=== PATIENT | male | born 1940 | race Caucasian/White ===

== ENCOUNTER 2020-05-06 13:30 | Outpatient (CLI) | payer MEDICARE, SELFPAY ==
--- NOTE | ~2020-05-06 | CT_ITS ---
EXAMINATION:CT lung screening DATE: 05/06/2020 13:54 INDICATION: Personal history of nicotine dependence. Smoker who quit 8 years ago with 30 pack year hi story. TECHNIQUE: Computed tomography (CT) of the chest was performed without intravenous contrast. Automate d exposure control and iterative reconstruction technique were employed. The dose-length product (DLP ) was 459.80 mGy-cm. COMPARISON: Chest CT 05/08/2018 FINDINGS: There is moderate emphysema. There is mild atelectasis bilaterally. There is an 11 mm nodul e in lingula in an area of atelectasis, increased from 8 mm on 05/08/2018. Calcified left lung nodules and calcified left hilar lymph nodes are consistent with old granulomatous disease. No pleural effus ion. The heart size is normal. There are coronary artery calcifications. No pericardial effusion. The re is a moderate-sized sliding hiatal hernia. There is a ring-shaped implant at the gastroesophageal junction. 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 There are ol d healed bilateral rib fractures. There is mild chronic height loss of multiple thoracic vertebral blaine dies. IMPRESSION: 1. Lung-RADS category 4B: Very suspicious. PET/CT is recommended. Reviewed, dictated and finalized at location B.
[2020-05-06 14:30] VITALS: PULSE 69; O2SAT 97
[2020-05-06 14:33] VITALS: PULSE 122; O2SAT 86
[2020-05-06 14:35] VITALS: O2SAT 87
[2020-05-06 14:37] VITALS: O2SAT 88
[2020-05-06 14:40] VITALS: PULSE 120; O2SAT 89
--- NOTE | 2020-05-06 15:06 | HOMEO2EVAL ---
Home Oxygen Evaluation RC: Home Oxygen (O2) Evaluation Start: 05/06/20 15:01 Freq: Status: Active Protocol: RPE Activity Type Activity Date Activity User E-Sign Co-Sign Detail Recorded Client Recorded Date Recorded By Document 05/06/20 14:30 SHADY [id number] 05/06/20 15:04 SHADY Document 05/06/20 14:33 SHADY [id number] 05/06/20 15:04 SHAYD Document 05/06/20 14:35 SHADY [id number] 05/06/20 15:04 SHADY Document 05/06/20 14:37 SHADY [id number] 05/06/20 15:04 SHADY Document 05/06/20 14:40 SHADY [id number] 05/06/20 15:06 SHADY 05/06/20 05/06/20 05/06/20 14:30 14:33 14:35 Home O2 Evaluation Test Phase Resting Exercise Exercise Oxygen Delivery Room Air Room Air Nasal Cannula Oxygen Flow Rate (L/min) 1 Pulse Oximetry (90-100 %) 97 86 L 87 L Pulse Rate (60-100 beats/min) 69 122 H Activity Tolerance Rating of Perceived Dyspnea (PD) Ambulation Distance (feet) Home Oxygen Evaluation Comments Treatment Charges O2 Evaluation 05/06/20 05/06/20 14:37 14:40 Home O2 Evaluation Test Phase Exercise Exercise Oxygen Delivery Nasal Cannula Nasal Cannula Oxygen Flow Rate (L/min) 2 3 Pulse Oximetry (90-100 %) 88 L 89 L Pulse Rate (60-100 beats/min) 120 H Activity Tolerance Poor Rating of Perceived Dyspnea (PD) +3 Moderate Difficulty, But Can Continue Ambulation Distance (feet) 75 Home Oxygen Evaluation Comments PT REQUIRES 3L WITH ACTIVITY/ EXERTION Treatment Charges
== END 2020-05-06 13:31 | disposition home or self-care (01) ==
PROVIDERS: PCP Internal Medicine; Visit Provider Nurse Practitioner Family
DX: Z12.2 Encounter for screening for malignant neoplasm of respiratory organs (principal); Z87.891 Personal history of nicotine dependence; R91.8 Other nonspecific abnormal finding of lung field
CPT/HCPCS: 94618; G0297

== ENCOUNTER 2020-05-13 07:36 | Outpatient (CLI) | payer MEDICARE, SELFPAY ==
--- NOTE | ~2020-05-13 | PE_ITS ---
EXAMINATION: PET skull to mid thigh DATE: 05/13/2020 09:45 INDICATION: Lung nodule TECHNIQUE: Blood glucose level was 77 mg/dL. 8.7 mCi of 18-fluorodeoxyglucose (18-FDG) was administer ed i.v. Low dose computed tomography (CT) images were acquired from the base of the brain to the prox imal thighs for attenuation correction and anatomic localization. Positron emission tomography (PET) images were acquired in the same distribution beginning 56 minutes after injection. Images including fused PET/CT images were reconstructed in axial, coronal, and sagittal planes. Automated exposure con trol technique was employed. The dose-length product was 1103 mGy-cm. COMPARISON: 05/06/2020, 03/16/2019 and 05/08/2018 FINDINGS: Head/neck: There is symmetric increased activity in the oral cavity, palatine tonsils, parotid glands, submandi bular glands, laryngeal muscles and ocular muscles without CT correlate, likely physiologic. Nonfocal increased activity along the bilateral scalene muscles without radiologic correlate which is likely physiologic. No pathologically enlarged cervical lymphadenopathy or suspicious foci of increased FDG uptake in the visualized head or neck. Chest: Emphysema. Respiratory motion throughout the lungs. No appreciable FDG uptake in the region of the pr evious noted is a calcified nodule along a band of discoid atelectasis/scarring in the lingula. There are a few additional small calcified nodules in both lungs along with calcified left hilar lymph nod es consistent with old granulomatous disease. No pneumonia, pulmonary edema or pleural effusion. Hear t size is normal. No pericardial effusion. Coronary artery disease with change of prior median sterno rachel and coronary artery bypass grafting as well as likely stenting along portions of the left anteri or descending and right coronary arteries. Dense mitral annular calcification. Ascending thoracic aor tic aneurysm measuring up to 4.6 cm in maximal diameter. Moderate-sized sliding-type hiatal hernia wi th ring shaped implant both level of the diaphragm in the region of the gastroesophageal junction. No pathologically enlarged thoracic lymphadenopathy or abnormal FDG avid lesions. Abdomen/pelvis/proximal thighs: Physiologic renal accumulation and excretion of FDG activity in the kidneys, bladder and along portio ns of ureters. Normal degree and heterogenous pattern of increased uptake throughout the liver withou t radiologic correlate or dominant FDG avid lesion. The gallbladder, pancreas, spleen and bilateral a drenal glands are normal. Mild to moderate uptake scattered throughout the bowels without radiologic correlate, also likely physiologic. There is mild colonic diverticulosis with a sigmoid predominance. There is no adjacent inflammatory change to suggest diverticulitis. There is extensive calcified at herosclerosis of the aorta and many of the other arteries. The abdominal aorta is tortuous with a jason r of fusiform infrarenal abdominal aortic aneurysms measuring 3.7 cm in maximal diameter with interve osbaldo tapering to 1.8 cm. 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 No other abnormal foci of increased FDG uptake or pathologically en larged lymphadenopathy in the abdomen, pelvis or proximal thighs. Musculoskeletal: Old bilateral rib fractures. Ptotic mild compression fractures at T7 and L1. Moderate lower cervical and mild thoracic and lumbar spondylosis. Chronic osteonecrosis at the bilateral femoral heads. No becker spicious lytic, blastic or FDG avid bone lesions. IMPRESSION: 1. No evident FDG uptake associated with a partially calcified nodule along a band of atelectasis/sca rring in the lingula. While reassuring a slowly growing malignancy with low metabolic activity cannot be absolutely excluded. Consider continued follow-up with six-month low-dose noncontrast chest
[2020-05-13 08:16] LABS: Glucose Point of Care 97 (65-105)
== END 2020-05-13 07:37 | disposition home or self-care (01) ==
PROVIDERS: PCP Internal Medicine; Visit Provider Nurse Practitioner Family
DX: R91.8 Other nonspecific abnormal finding of lung field (principal); J43.9 Emphysema, unspecified; K57.30 Diverticulosis of large intestine without perforation or abscess without bleeding; I71.4 Abdominal aortic aneurysm, without rupture; K44.9 Diaphragmatic hernia without obstruction or gangrene
CPT/HCPCS: 78815; A9552

== ENCOUNTER 2020-07-23 12:21 | Emergency (ER) | payer MEDICARE, SELFPAY ==
--- NOTE | ~2020-07-23 | XR_ITS ---
EXAMINATION: XR knee LT 3V DATE: 07/23/2020 14:56 INDICATION: Left knee pain. TECHNIQUE: 3 views of left knee were obtained. COMPARISON: None. FINDINGS: Bone alignment is normal. No fracture. There is mild osteoarthritis of medial and patellofe moral compartments. No knee joint effusion. IMPRESSION: 1. Mild left knee osteoarthritis. Reviewed, dictated and finalized at location B. V BELT MOLD ASSEMBLER AND CURER
--- NOTE | ~2020-07-23 | XR_ITS ---
EXAMINATION: XR knee RT 3V DATE: 07/23/2020 14:56 INDICATION: Right knee pain. Fall. TECHNIQUE: 3 views of right knee were obtained. COMPARISON: None. FINDINGS: Bone alignment is normal. No fracture. There is mild osteoarthritis of patellofemoral kayden rtment. There are subcutaneous dystrophic calcifications anterior to the knee. No knee joint effusion . IMPRESSION: 1. Mild right knee osteoarthritis. Reviewed, dictated and finalized at location B. E COTTON CLEANER
--- NOTE | ~2020-07-23 | XR_ITS ---
EXAMINATION: XR hand RT min 3V DATE: 07/23/2020 14:56 INDICATION: Right hand injury TECHNIQUE: Posteroanterior, oblique and lateral views of the right hand were obtained. COMPARISON: None. FINDINGS: Diffuse body osteopenia. Bone alignment is normal. No fracture. Polyarticular osteoarthritis, moderat e at the first interphalangeal joint and mild at the triscaphe, first carpometacarpal and majority of the remaining metacarpophalangeal and interphalangeal joints. IMPRESSION: 1. Polyarticular osteoarthritis. No acute fracture. Reviewed, dictated and finalized at location A. S OFFICER
--- NOTE | ~2020-07-23 | CT_ITS ---
EXAMINATION: CT brain wo con, CT cervical spine wo con EXAM DATE: 07/23/2020 14:23 INDICATION: Syncope, head injury . TECHNIQUE: Spiral CT of the head was performed without contrast. Axial, coronal and sagittal images were reviewed. Spiral CT of the cervical spine was performed without contrast. Axial images were rev iewed. Coronal and sagittal reformatted images were also reviewed. The dose-length product (DLP) fo r this examination was 605.33 (accession [id number]), 527.71 (accession [id number]) mGy-cm. The exposure was tailored according to patient size, and iterative reconstruction (ASIR) was used as additional dose reduction technique. There is no prior study for comparison. FINDINGS: HEAD CT: There is no acute intraparenchymal hemorrhage. No evidence of intraparenchymal brain mass l esion. No evidence of acute infarction. There is moderate periventricular and subcortical hypodensit y, nonspecific but probably related to small vessel ischemic disease. There is moderate prominence of the sulci and ventricles related to cerebral atrophy. There is severe intracranial carotid arter iosclerosis. There is no mass effect or midline shift. There is no obstructive hydrocephalus suspec romi. There are no extra-axial collections. There are no acute calvarial fractures. Patient has had bilateral ocular lens surgery. Symmetrically dilated superior ophthalmic veins. Moderate-sized right frontal scalp contusion, hematoma. Laceration. The visualized sinuses and mastoid air cells are well aerated. CERVICAL CT: Sternotomy wires. There is no evidence of acute cervical fracture. The odontoid process is intact. Pre-dens space is normal. Prevertebral soft tissue is normal. There are no soft tissue abnormalities identified. There is no disc space widening or traumatic vertebral body subluxation s uspected. Vertebral body and disc heights are well-maintained. Moderate cervical disc disease, adv anced left C3--4. Otherwise overall moderate cervical arthropathy. IMPRESSION: 1. No acute intracranial findings or cervical fracture. 2. Right frontal scalp injury. 3. Moderate cervical spondylosis. Reviewed, dictated and finalized at location A. HER VOCAL IMPRESSION: 1. No acute intracranial findings or cervical fracture. 2. Right frontal scalp injury. 3. Moderate cervical spondylosis.
--- NOTE | ~2020-07-23 | XR_ITS ---
EXAMINATION: XR chest 2V DATE: 07/23/2020 14:56 INDICATION: Syncope TECHNIQUE: frontal and lateral views of the chest were obtained. COMPARISON: Chest radiograph dated 03/16/[address] dated 05/06/2020 FINDINGS: Increased lucency with architectural distortion in the upper lung zones and vascular crowding in the lower lung zones consistent with emphysema better appreciated on prior CT. Chronic curvilinear atelec tasis/scarring at the medial right lower lung zone. Persistent triangular opacity projecting medially from the left costophrenic angle corresponding to a prominent paracardial fat pad. No pulmonary ashok a, pleural effusion or pneumothorax. Heart size is normal. Median sternotomy wires, ostial markers an d mediastinal surgical clips consistent with prior coronary artery bypass grafting. There is also bee n coronary artery stenting. Dense mitral annular calcification. Moderate-sized hiatal hernia. A marke r is seen corresponding to the ringlike implant at the gastroesophageal junction. Atherosclerotic aor ta. Moderate thoracic spondylosis with a few chronic mild compression fractures. IMPRESSION: 1. Emphysema with chronic atelectasis/scarring at the right lower lung zone. 2. Moderate-sized hiatal hernia. Reviewed, dictated and finalized at location A. ROLLER
--- NOTE | ~2020-07-23 | XR_ITS ---
EXAMINATION: XR hip RT min 3V w AP pelvis DATE: 07/23/2020 14:56 INDICATION: Right hip injury. TECHNIQUE: An anteroposterior view of the pelvis and 3 views of right hip were obtained. COMPARISON: CT abdomen and pelvis 03/16/2019 FINDINGS: Bone alignment is normal. No fracture. There is moderate osteoarthritis of the hips. There is mild lumbar spondylosis. IMPRESSION: 1. Moderate osteoarthritis of the hips. 2. The osteonecrosis at the anterosuperior aspects of the femoral heads bilaterally seen on the prior CT is not well visualized. Reviewed, dictated and finalized at location B. ECHNICIAN IMPRESSION: 1. Moderate osteoarthritis of the hips. 2. The osteonecrosis at the anterosuperior aspects of the femoral heads bilater ally seen on the prior CT is not well visualized.
[2020-07-23 12:33] VITALS: BP 125/66; PULSE 54; RESP 16; TEMP 36.8; O2SAT 94
--- NOTE | 2020-07-23 12:49 | ECG_ITS ---
Measurements Intervals [place] Rate: 52 P: 61 AK: 233 QRS: -27 QRSD: 157 T: 25 QT: 490 QTc: 460 Interpretive Statements SINUS BRADYCARDIA WITH SINUS ARRHYTHMIA WITH FIRST DEGREE AV BLOCK LEFT BUNDLE BRANCH BLOCK BASELINE ARTIFACT- I, II, III, AVR, AVL, AVF ABNORMAL ECG Electronically Signed On 07-23-2020 17:08:11 HEATING AND VENTILATION ENGINEER by aRza Modi D.O.
[2020-07-23 13:14] VITALS: BP 141/85; PULSE 52; RESP 22; O2SAT 92
[2020-07-23 13:24] LABS: Hematocrit 31.7 % (42.0-52.0); Hemoglobin 9.4 g/dL (14.0-18.0); Mean Corpuscular HGB Conc 29.7 g/dl (32-36); Mean Corpuscular Hemoglobin 23.6 pg (26-34); Mean Corpuscular Volume 79.6 fl (80-100); Mean Platelet Volume 8.9 fl (7.4-10.4); Platelet Count Result 302 k/mm3 (150-375); Red Blood Count 3.98 M/mm3 (4.6-6.20); Red Cell Distribution Width 15.3 % (11.5-14.5)
--- NOTE | 2020-07-23 13:29 | ED.FALL ---
HPI - Fall General Chief Complaint: Fall Stated Complaint: FALL Time Seen by Provider: 07/23/20 12:34 History of Present Illness HPI Narrative: Patient is a 79-year-old gentleman who presents emergency department with chief complaint of head injury. Patient reports that he got up and then the next thing he knows he was laying on the ground. Patient states that he had no preceding symptoms reports that he did lose consciousness had no loss of bowel or bladder function. The patient denies history of syncope in the past does report that he has a significant cardiac history of which she has had bypass and has had stents. The patient states currently he does complains of a headache and has a skin tear on his right hand. Patient reports that he is on antiplatelet therapy with Plavix and aspirin. Related Data Home Medications Medication Instructions Recorded Confirmed carvedilol 6.25 mg tablet 6.25 mg PO Q12H 07/16/19 06/03/20 fesoterodine 4 mg tablet,extended 4 mg PO DAILY 07/16/19 06/03/20 release 24 hr finasteride 5 mg tablet 5 mg PO DAILY 07/16/19 06/03/20 furosemide 20 mg tablet 20 mg PO QAM 07/16/19 06/03/20 lisinopril 10 mg tablet 5 mg PO DAILY 07/16/19 06/03/20 pravastatin 20 mg tablet 20 mg PO DAILY 07/16/19 06/03/20 spironolactone 25 mg tablet 25 mg PO DAILY 07/16/19 06/03/20 tamsulosin 0.4 mg capsule 0.4 mg PO DAILY 07/16/19 06/03/20 pantoprazole 40 mg tablet,delayed 40 mg PO BID tablet 01/08/20 06/03/20 release clopidogrel 75 mg tablet 75 mg PO DAILY 06/03/20 06/03/20 evolocumab 140 mg/mL subcutaneous 140 mg SUB-Q .COMPLEX 06/03/20 06/03/20 pen injector aspirin [Adult Low Dose Aspirin] 81 mg PO DAILY 07/23/20 clopidogrel [Plavix] 75 mg PO DAILY 07/23/20 07/23/20 ezetimibe [Zetia] 10 mg PO DAILY 07/23/20 07/23/20 Allergies Allergy/AdvReac Type Severity Reaction Status Date / Time Penicillins Allergy Mild HIVES Verified 07/23/20 12:33 levofloxacin Allergy Unknown Hives / Verified 07/23/20 12:33 Red Face metronidazole Allergy Unknown unknown Verified 07/23/20 12:33 sulfamethoxazole Allergy Unknown unknown Verified 07/23/20 12:33 tramadol Allergy Unknown Itching Verified 07/23/20 12:33 trimethoprim Allergy Unknown unknown Verified 07/23/20 12:33 cyclobenzaprine AdvReac Intermediate REPORTS Verified 07/23/20 12:33 INCREASED URINATION acetaminophen AdvReac Unknown gets Verified 07/23/20 12:33 goofy oxycodone AdvReac Unknown gets Verified 07/23/20 12:33 goofy Review of Systems Review of Systems: Narrative: CONSTITUTIONAL: Denies fever, chills, or sweats. EYES: Denies visual changes, redness, or discharge. ENT: Denies rhinorrhea, congestion, sore throat, or otalgia. CARDIOVASCULAR: Denies chest pain, palpitations, or edema. RESPIRATORY: Denies cough or dyspnea. GASTROINTESTINAL: Denies abdominal pain, nausea, vomiting, or diarrhea. GENITOURINARY: Denies dysuria or hematuria. SKIN: Denies rash or itching. MUSCULOSKELETAL: Denies back pain, joint pain, or myalgia. NEUROLOGIC: Denies headache, numbness, or weakness. PSYCHIATRIC: Denies anxiety or depression. 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
[2020-07-23 13:33] LABS: Hypochromasia 2+ (NORMAL); Lymphocytes Absolute Manual 0.91 K/mm3 (1.1-4.5); Monocytes Absolute Manual 0.28 K/mm3 (0.1-0.90); Monocytes Percent Manual 4 % (3-9); Neutrophils Percent Manual 83 % (46-73); Platelet Estimate Adequate (Adequate); Stomatocytes 1+ (NORMAL); Tear Drop Cells 1+ (NORMAL); Total Cells Counted 100
[2020-07-23 13:35] LABS: Lactic Acid Reflex 1.2 mmol/L (0.7-2.1)
[2020-07-23 13:36] LABS: Alanine Aminotransferase 20 U/L (4-50); Albumin Level 4.3 g/dL (3.5-5.1); Alkaline Phosphatase 55 U/L (38-126); Anion Gap 4 mmol/L (8-16); Aspartate Amino Transferase 25 U/L (17-59); Bilirubin,Total 0.4 mg/dL (0.2-1.3); Blood Urea Nitrogen 16 mg/dL (9-20); Carbon Dioxide 34 mmol/L (22-30); Chloride 98 mmol/L (98-107); Estimated CRCL calculation 66 ml/min; Estimated Glomerular Filt Rate > 60; Glucose 113 mg/dL (75-110); INR 0.9; Potassium 4.2 mmol/L (3.4-5.0); Prothrombin Time 12.8 Seconds (11.1-14.7); Sodium 136 mmol/L (137-145)
[2020-07-23 13:37] LABS: Partial Thromboplastin Time 26.1 SECONDS (22.3-36.8)
[2020-07-23 13:40] LABS: Alveolar/Arterial O2 Gradient 28.6 mmHg; Base Excess ABG 2.5 mEq/l (+/-2.0); Carboxyhemoglobin 0.7 % THb (0-2.0); Fractional Inspired Oxygen 21 %; HCO3 ABG 28.6 mEq/l (22.0-26.0); Methemoglobin ABG 0.1 %THb (0-1.5); Oxygen Saturation ABG 89.4 % (95.0-100.0); Oxyhemoglobin 88.4 % THb (90.0-100.0); PCO2 ABG 51.6 mmHg (35.0-45.0); PO2 ABG 59.3 mmHg (80.0-100.0); PO2 FiO2 Ratio Arterial Blood 2.82 %; Reduced Hemoglobin 10.8 %THb (0-5.0); Total Hemoglobin 10.4 g/dL (12.0-18.0); pH ABG 7.361 (7.350-7.450)
[2020-07-23 13:41] LABS: Device ROOM AIR; Modified Allen's Test Pass; Site Drawn LEFT RADIAL
[2020-07-23 13:48] LABS: Troponin I < 0.012 ng/mL (0.000-0.034)
[2020-07-23] MEDS: TETANUS,DIPHTHERIA,AC PERTUSSIS ADULT (0.5 ML) BOOSTRIX IM (13:54)
[2020-07-23 14:28] LABS: Add Urine Microscopic? YES; Appearance Urine Clear (Clear); Bacteria Urine Trace /hpf; Bilirubin Urine Negative (Negative); Blood Urine Negative (Negative); Color Urine Yellow (Yellow); Glucose Urine UA Negative (Negative); Hyaline Casts Urine 30-49 /lpf; Ketones Urine Negative (Negative); Leukocyte Esterase Ur Negative LEU/UL (Negative); Mucus Urine Few /lpf; Nitrate Urine Negative (Negative); Protein Urine Negative (Negative); RBC Urine 0-2 /hpf (0-2); Specific Grav Ur 1.013 (1.001-1.035); Squamous Epithelial Cell Urine Rare /hpf (Few); Urobilinogen Urine Negative mg/dL (<2.0); WBC Urine 0-3 /hpf
[2020-07-23 15:52] VITALS: BP 128/64; PULSE 58; RESP 21; O2SAT 94
--- NOTE | 2020-07-23 16:05 | PC.NURSE ---
Road test done with patient. He was on 3L of oxygen, which is what he is on when he is at home with exertion. Pt )2 during this was 90-98%. It mainly ranged from 93-95%. It dropped to 90% when he got back to the room but then quickly went back up. He is 98% on 3L while resting.
[2020-07-23 17:33] VITALS: BP 131/66; PULSE 58; RESP 24; O2SAT 93
== END 2020-07-23 17:35 | disposition home or self-care (01) ==
PROVIDERS: Emergency Provider Emergency Medicine; PCP Internal Medicine
DX: R55 Syncope and collapse (principal); S00.01XA Abrasion of scalp, initial encounter; S61.411A Laceration without foreign body of right hand, initial encounter; Z23 Encounter for immunization; Z79.82 Long term (current) use of aspirin; Z79.02 Long term (current) use of antithrombotics/antiplatelets; Z87.891 Personal history of nicotine dependence; I25.2 Old myocardial infarction; Z95.5 Presence of coronary angioplasty implant and graft; W18.39XA Other fall on same level, initial encounter
CPT/HCPCS: 36415; 36600; 70450; 71046; 72125; 73130; 73502; 73562; 80053; 81001; 82375; 82805; 83050; 83605; 84484; 85025; 85610; 85730; 90471; 90715; 93005; 99284

== ENCOUNTER 2020-11-19 08:59 | Outpatient (CLI) | payer MEDICARE, SELFPAY ==
--- NOTE | ~2020-11-19 | CT_ITS ---
EXAMINATION: CT diagnostic chest wo con EXAM DATE: 11/19/2020 09:19 INDICATION: Solitary pulmonary nodule R91.1. TECHNIQUE: Spiral CT of the chest without contrast. Axial, coronal and sagittal images were reviewe d. Coronal maximum intensity pixel images of chest reviewed. The dose-length product (DLP) for this examination was 372.80 mGy-cm. The exposure was tailored according to patient size (auto mA exposur e control), and iterative reconstruction (ASIR) was used as additional dose reduction technique. Comp arison is made to prior examination from 05/06/2020. FINDINGS: Ascending aortic dilation, measuring 4.6 cm unchanged. Irregular shaped lingular opacity is unchanged, consistent with scarring. This was FDG negative on PET CT last year. Several other region s of bibasilar subsegmental atelectasis. No suspicious opacities. Circumferential gastroesophageal junction banding device is intrathoracic, along with the gastric car aidan, similar appearance to prior examination, moderate hiatal hernia. There is moderate emphysema and hyperinflation. There are no pleural or pericardial effusions. Tracheobronchial tree is patent. There is no mediastinal, hilar or axillary lymphadenopathy. There is no pneumothorax. Heart norm al in size. There are sternotomy wires. There are dense coronary arteries, could be severe coronary arterial scle rosis and/or coronary artery stent(s), which are difficult to distinguish due to cardiac motion on th is non-gated exam. Correlate with cardiac history and consider cardiology consult if not recently christoph luated. Dense mitral annular calcifications. Upper abdomen is unremarkable. There is thoracic spon dylosis without osteoblastic or osteolytic lesions identified. IMPRESSION: 1. Stable lingular nodule. 2. Bibasilar linear subsegmental atelectasis. 3. Stable ascending aortic 4.6 cm aneurysm. 4. Moderate emphysema and hyperinflation. 5. Moderate hiatal hernia. Reviewed, dictated and finalized at location B. IAL WARFARE OPERATOR
== END 2020-11-19 09:00 | disposition home or self-care (01) ==
PROVIDERS: PCP Internal Medicine; Visit Provider Nurse Practitioner Family
DX: R91.1 Solitary pulmonary nodule (principal); J98.11 Atelectasis; I71.2 Thoracic aortic aneurysm, without rupture; K44.9 Diaphragmatic hernia without obstruction or gangrene; J43.9 Emphysema, unspecified
CPT/HCPCS: 71250

== ENCOUNTER 2020-12-15 10:15 | Outpatient (CLI) | payer MEDICARE, SELFPAY ==
[2020-12-15 10:57] LABS: Hematocrit 29.3 % (42.0-52.0); Hemoglobin 8.5 g/dL (14.0-18.0); Mean Corpuscular Hemoglobin 21.3 pg (26-34); Mean Corpuscular Volume 73.4 fl (80-100); Mean Platelet Volume 8.8 fl (7.4-10.4); Platelet Count Result 316 k/mm3 (150-375); Red Blood Count 3.99 M/mm3 (4.6-6.20); Red Cell Distribution Width 17.1 % (11.5-14.5); White Blood Count 5.6 K/mm3 (4.5-10.0)
[2020-12-15 11:09] LABS: Alanine Aminotransferase 18 U/L (4-50); Albumin Level 4.3 g/dL (3.5-5.1); Alkaline Phosphatase 56 U/L (38-126); Anion Gap 2 mmol/L (8-16); Aspartate Amino Transferase 26 U/L (17-59); Bilirubin,Total 0.5 mg/dL (0.2-1.3); Blood Urea Nitrogen 18 mg/dL (9-20); Calcium 8.9 mg/dL (8.4-10.2); Carbon Dioxide 33 mmol/L (22-30); Chloride 99 mmol/L (98-107); Cholesterol 140 mg/dL (0-200); Estimated Glomerular Filt Rate 59; Glucose 108 mg/dL (75-110); HDL Direct 48 mg/dL; Potassium 4.7 mmol/L (3.4-5.0); Sodium 134 mmol/L (137-145); Triglycerides 86 mg/dL (<150)
[2020-12-15 11:20] LABS: LDL Cholesterol Direct 64 mg/dL
== END 2020-12-15 10:16 | disposition home or self-care (01) ==
PROVIDERS: PCP Internal Medicine; Visit Provider Internal Medicine Cardiovascular Disease
DX: I25.10 Atherosclerotic heart disease of native coronary artery without angina pectoris (principal)
CPT/HCPCS: 36415; 80053; 80061; 85027

== ENCOUNTER 2021-05-13 11:43 | Emergency (ER) | payer MEDICARE, SELFPAY ==
[2021-05-13 11:46] VITALS: BP 155/72; PULSE 64; RESP 24; TEMP 36.5; O2SAT 93
[2021-05-13 12:09] LABS: Basophils Percent Auto 0.5 % (0.2-1.2); Eosinophils Absolute Auto 0.1 K/mm3 (0-0.3); Eosinophils Percent Auto 2.3 % (0-4.4); Hematocrit 42.2 % (42.0-52.0); Hemoglobin 13.3 g/dL (14.0-18.0); Immature Granulocyte Absolute 0.03 K/mm3 (0.00-0.031); Immature Granulocyte Percent A 0.5 % (0-0.5); Lymphocytes Absolute Auto 1.02 K/mm3 (0.9-3.2); Lymphocytes Percent Auto 18.3 % (18.3-44.2); Mean Corpuscular HGB Conc 31.5 g/dl (32-36); Mean Corpuscular Hemoglobin 28.6 pg (26-34); Mean Corpuscular Volume 90.8 fl (80-100); Mean Platelet Volume 8.7 fl (7.4-10.4); Monocytes Absolute Auto 0.4 K/mm3 (0.1-0.6); Monocytes Percent Auto 7.7 % (2.6-8.5); Neutrophils Absolute Auto 3.9 K/mm3 (1.3-6.7); Neutrophils Percent Auto 70.7 % (45.5-73.1); Platelet Count Result 248 k/mm3 (150-375); Red Blood Count 4.65 M/mm3 (4.6-6.20); Red Cell Distribution Width 13.5 % (11.5-14.5); White Blood Count 5.6 K/mm3 (4.5-10.0)
[2021-05-13 12:24] LABS: Alanine Aminotransferase 30 U/L (4-50); Albumin Level 4.6 g/dL (3.5-5.1); Alkaline Phosphatase 68 U/L (38-126); Anion Gap 12 mmol/L (8-16); Aspartate Amino Transferase 34 U/L (17-59); Bilirubin,Total 0.5 mg/dL (0.2-1.3); Blood Urea Nitrogen 15 mg/dL (9-20); Calcium 9.5 mg/dL (8.4-10.2); Carbon Dioxide 28 mmol/L (22-30); Chloride 99 mmol/L (98-107); Estimated CRCL calculation 62 ml/min; Estimated Glomerular Filt Rate > 60; Glucose 120 mg/dL (65-110); Lipase 45 U/L (23-300); Potassium 4.5 mmol/L (3.4-5.0); Sodium 139 mmol/L (137-145)
--- NOTE | 2021-05-13 12:53 | PC.NURSE ---
1250 spouse at intake desk stating pt states he is feeling fine and just wants to go home ,so I'm going to take him home. Pt ambulated out of ed with stand-by assist of hydroelectric plant technician. No distress noted.
== END 2021-05-13 17:54 | disposition left against medical advice (07) ==
PROVIDERS: Emergency Provider Emergency Medicine; PCP Internal Medicine
DX: R11.10 Vomiting, unspecified (principal)
CPT/HCPCS: 36415; 80053; 83690; 85025; 99199

== ENCOUNTER 2021-06-11 01:55 | Day surgery (SDC) | payer MEDICARE, SELFPAY ==
[2021-06-01 15:15] VITALS: BMI 22.1
[2021-06-11 08:54] VITALS: BP 122/71; PULSE 62; RESP 22; TEMP 36.4; O2SAT 94
--- NOTE | 2021-06-11 09:01 | WPDGICN ---
Assessment and Plan Assessment and plan (1) Dysphagia: Code(s): R13.10 - Dysphagia, unspecified Status: Acute Assessment and Plan: Patient with recurrent difficulty swallowing. Known to have esophageal stricture most recent dilatation 2014 he has done well until recently. Plan is for EGD to assess more thoroughly. (2) Gastro-esophageal reflux disease without esophagitis: Code(s): K21.9 - Gastro-esophageal reflux disease without esophagitis Status: Acute Assessment and Plan: Patient currently on pantoprazole 40mg p.o. b.i.d.. Anti-reflux measures encourage. Continue close monitoring suggested. (3) COPD (chronic obstructive pulmonary disease) with emphysema: Qualifiers: Emphysema type: panlobular Qualified Code(s): J43.1 - Panlobular emphysema Code(s): J43.9 - Emphysema, unspecified Status: Acute GI Consult Note Consult date/time: 06/11/21 09:01 HPI: Cecilio Ribeiro is a 80 year old male Presents for EGD. Patient has had increasing difficulty swallowing. Currently up with his . He states that solid food will catch in mid substernal portion the chest he is unable to eat or swallow till he regurgitates this. In the past he has been known to have esophageal strictures. This has required dilatation. Most recently has been maintained on pantoprazole 40mg p.o. b.i.d.. Patient denies any weight loss or bleeding. Past medical history is significant for COPD. He also has a history of colon polyps. Family history is noncontributory. 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) with stent placement Family History Family History Sibling Family history of cardiovascular disease Family history of coronary artery disease Family history of heart disease in male family member before age 55 Mother Family history of malignant neoplasm, Onset Age: 30 Patient's mother is Father Diabetes mellitus Family history of cardiovascular disease Social History Social History Smoking packs per day: 1 Smoking cigarettes per day: 20.0 Years smoked: 65 Smoking pack-years: 65.00 Smoking status: Former smoker Tobacco type: cigarettes Smoking end date: 09/12/11 Alcohol intake: never Substance use: never Substance use type: does not use Living arrangements: with family Spiritual care concerns: No Meds Home Medications and Allergies Home Medications Medication Instructions Recorded Confirmed Type finasteride 5 mg tablet 5 mg PO DAILY 07/16/19 06/09/21 History furosemide 20 mg tablet 20 mg PO QAM 07/16/19 06/09/21 History lisinopril 10 mg tablet 5 mg PO DAILY 07/16/19 06/09/21 History pravastatin 20 mg tablet 20 mg PO DAILY 07/16/19 06/09/21 History spironolactone 25 mg tablet 25 mg PO DAILY 07/16/19 06/09/21 History tamsulosin 0.4 mg capsule 0.4 mg PO DAILY 07/16/19 06/09/21 History blood sugar diagnostic #100 each 11/14/19 06/09/21 Rx clopidogrel 75 mg tablet 75 mg PO DAILY 06/03/20 06/09/21 History aspirin [Adult Low Dose Aspirin] 81 mg PO DAILY 07/23/20 06/09/21 History ezetimibe [Zetia] 10 mg PO DAILY 07/23/20 06/09/21 History docosahexaenoic acid 450 mg capsule 450 mg PO BID cap 11/24/20 06/09/21 History ipratropium 0.5 mg-albuterol 3 mg See Rx Instructions .ROUTE 01/26/21 06/09/21 Rx (2.5 mg base)/3 mL nebulization .COMPLEX #360 ml soln pantoprazole 40 mg tablet,delaye
[2021-06-11] MEDS: LACTATED RINGERS 1,000 ML 150 ML IV CONT (09:15)
[2021-06-11 09:17] LABS: Glucose Point of Care 113 mg/dl (65-105)
--- NOTE | 2021-06-11 09:53 | WPDANESEPPF ---
Anes - Initial Pre Proc Eval Procedure: Operation Date: 06/11/21 10:00 Proposed Procedures p Esophagogastroduodenoscopy - Yoan Arellano MD Date/Time: 06/11/21 09:53 Surgeon: Yoan Arellano MD Pre Op Diagnosis: dysphagia Patient Data Age: 80 Gender: M Height: 1.83 m Weight: 118.3 kg Last Vital Signs Temp 97.5 F L 06/11/21 08:54 Pulse 62 06/11/21 08:54 Resp 22 H 06/11/21 08:54 BP 122/71 06/11/21 08:54 Pulse Ox 94 06/11/21 08:54 Allergies Allergy/AdvReac Type Severity Reaction Status Date / Time Penicillins Allergy Mild HIVES Verified 06/11/21 08:53 levofloxacin Allergy Unknown Hives / Verified 06/11/21 08:53 Red Face metronidazole Allergy Unknown unknown Verified 06/11/21 08:53 sulfamethoxazole Allergy Unknown unknown Verified 06/11/21 08:53 tramadol Allergy Unknown Itching Verified 06/11/21 08:53 trimethoprim Allergy Unknown unknown Verified 06/11/21 08:53 cyclobenzaprine AdvReac Intermediate REPORTS Verified 06/11/21 08:53 INCREASED URINATION oxycodone AdvReac Unknown gets Verified 06/11/21 08:53 goofy Home Medications Medication Instructions Recorded Confirmed Type finasteride 5 mg tablet 5 mg PO DAILY 07/16/19 06/11/21 History furosemide 20 mg tablet 20 mg PO QAM 07/16/19 06/11/21 History lisinopril 10 mg tablet 5 mg PO DAILY 07/16/19 06/11/21 History pravastatin 20 mg tablet 20 mg PO DAILY 07/16/19 06/11/21 History spironolactone 25 mg tablet 25 mg PO DAILY 07/16/19 06/11/21 History tamsulosin 0.4 mg capsule 0.4 mg PO DAILY 07/16/19 06/11/21 History blood sugar diagnostic #100 each 11/14/19 06/11/21 Rx clopidogrel 75 mg tablet 75 mg PO DAILY 06/03/20 06/11/21 History aspirin [Adult Low Dose Aspirin] 81 mg PO DAILY 07/23/20 06/11/21 History ezetimibe [Zetia] 10 mg PO DAILY 07/23/20 06/11/21 History docosahexaenoic acid 450 mg capsule 450 mg PO BID cap 11/24/20 06/11/21 History ipratropium 0.5 mg-albuterol 3 mg See Rx Instructions .ROUTE 01/26/21 06/11/21 Rx (2.5 mg base)/3 mL nebulization .COMPLEX #360 ml soln pantoprazole 40 mg tablet,delayed 40 mg PO BID #180 tablet 03/03/21 06/11/21 Rx release glimepiride 1 mg tablet 1 mg PO BID #180 tablet 03/25/21 06/11/21 Rx budesonide 0.5 mg/2 mL suspension 0.5 mg INHALATION BID #120 ml 05/19/21 06/11/21 Rx for nebulization sertraline 50 mg PO DAILY 06/01/21 06/11/21 History Laboratory Tests 06/11/21 09:15 POC Capillary Glucose 113 mg/dl H mg/dl (65-105) Patient hx anesthesia problems: none Family hx anesthesia problems: none Results Review: All pre-operative results and documents have been reviewed as part of the pre-operative evaluation. 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) with stent placement Family History Family History Sibling Family history of cardiovascular disease Family history of coronary artery disease Family history of heart disease in male family member before age 55 Mother Family history of malignant neoplasm, Onset Age: 30 Patient's mother is Father Diabetes mellitus Family history of cardiovascular disease Social History Social History Smoking packs per day: 1 Smoking cigarettes per day: 20.0 Years smoked: 65 Smoking pack-years: 65.00 Smoking status: Former smoker Tobacco type: cigarettes Smoking end date: 09/12/11 Alcohol intake: never Substance use: never Substance use type: does not use Living arrangements: with family Spiritual care concerns: No Anes - Eval Final Pr
[2021-06-11 10:37] VITALS: BP 133/69; PULSE 57; RESP 24; O2SAT 95
[2021-06-11 10:57] VITALS: BP 107/72; PULSE 60; RESP 19; O2SAT 93
[2021-06-11 11:07] VITALS: BP 125/66; PULSE 68; RESP 18; O2SAT 96
== END 2021-06-11 11:40 | disposition home or self-care (01) ==
PROVIDERS: PCP Internal Medicine; Visit Provider Internal Medicine Gastroenterology
PROC: 0DJ08ZZ Inspection of Upper Intestinal Tract, Via Natural or Artificial Opening Endoscopic (ICD-10-PCS; CPT 43235; principal; 2021-06-11 10:00)
DX: Q39.4 Esophageal web (principal); K44.9 Diaphragmatic hernia without obstruction or gangrene; K21.9 Gastro-esophageal reflux disease without esophagitis; J43.9 Emphysema, unspecified; I25.2 Old myocardial infarction; Z87.891 Personal history of nicotine dependence; Z79.82 Long term (current) use of aspirin; Z79.02 Long term (current) use of antithrombotics/antiplatelets; Z79.51 Long term (current) use of inhaled steroids; E66.9 Obesity, unspecified; Z68.35 Body mass index [BMI] 35.0-35.9, adult
CPT/HCPCS: 43249; 82948; C1726; J2704; J7120

== ENCOUNTER 2021-09-23 12:19 | Outpatient (CLI) | payer MEDICARE, SELFPAY ==
[2021-09-23 13:03] LABS: Cholesterol 185 mg/dL (0-200); HDL Direct 50 mg/dL; Triglycerides 107 mg/dL (<150)
[2021-09-23 13:14] LABS: LDL Cholesterol Direct 101 mg/dL
== END 2021-09-23 12:20 | disposition home or self-care (01) ==
LOC: ANHLAB 12:29
PROVIDERS: PCP Internal Medicine; Visit Provider Internal Medicine Cardiovascular Disease
DX: E78.2 Mixed hyperlipidemia (principal); I25.10 Atherosclerotic heart disease of native coronary artery without angina pectoris; E11.69 Type 2 diabetes mellitus with other specified complication
CPT/HCPCS: 36415; 80061

== ENCOUNTER 2021-12-30 12:10 | Outpatient (CLI) | payer MEDICARE, SELFPAY ==
[2021-12-30 12:34] LABS: Basophils Absolute Auto 0.1 K/mm3 (0.0-0.1); Basophils Percent Auto 0.7 % (0.2-1.2); Eosinophils Absolute Auto 0.2 K/mm3 (0-0.3); Eosinophils Percent Auto 2.1 % (0-4.4); Hematocrit 40.4 % (42.0-52.0); Hemoglobin 12.5 g/dL (14.0-18.0); Immature Granulocyte Absolute 0.02 K/mm3 (0.00-0.031); Immature Granulocyte Percent A 0.3 % (0-0.5); Lymphocytes Absolute Auto 1.06 K/mm3 (0.9-3.2); Lymphocytes Percent Auto 14.7 % (18.3-44.2); Mean Corpuscular HGB Conc 30.9 g/dl (32-36); Mean Corpuscular Hemoglobin 28.4 pg (26-34); Mean Corpuscular Volume 91.8 fl (80-100); Mean Platelet Volume 8.9 fl (7.4-10.4); Monocytes Absolute Auto 0.6 K/mm3 (0.1-0.6); Monocytes Percent Auto 7.8 % (2.6-8.5); Neutrophils Absolute Auto 5.4 K/mm3 (1.3-6.7); Neutrophils Percent Auto 74.4 % (45.5-73.1); Platelet Count Result 248 k/mm3 (150-375); Red Cell Distribution Width 13.6 % (11.5-14.5); White Blood Count 7.2 K/mm3 (4.5-10.0)
[2021-12-30 12:41] LABS: Alanine Aminotransferase 17 U/L (4-50); Albumin Level 4.5 g/dL (3.5-5.1); Alkaline Phosphatase 64 U/L (38-126); Anion Gap 5 mmol/L (8-16); Aspartate Amino Transferase 32 U/L (17-59); Bilirubin,Total 0.6 mg/dL (0.2-1.3); Blood Urea Nitrogen 16 mg/dL (9-20); Carbon Dioxide 32 mmol/L (22-30); Chloride 100 mmol/L (98-107); Estimated Glomerular Filt Rate > 60; Glucose 117 mg/dL (65-110); Potassium 4.9 mmol/L (3.4-5.0); Sodium 137 mmol/L (137-145)
[2021-12-30 12:50] LABS: Iron 89 ug/dL (49-181); NT Pro B Type Natriuretic Pept 153 pg/mL (5-100)
[2021-12-30 12:59] LABS: Percent Iron Saturation 22 % (20-50)
[2021-12-30 13:00] VITALS: PULSE 68; O2SAT 95
[2021-12-30 13:05] VITALS: PULSE 80; O2SAT 89
[2021-12-30 13:10] VITALS: PULSE 66; O2SAT 94
[2021-12-30 13:15] VITALS: PULSE 65; O2SAT 95
--- NOTE | 2021-12-30 13:52 | HOMEO2EVAL ---
Evaluation was performed at [facility] Home Oxygen Evaluation RC: Home Oxygen (O2) Evaluation Start: 12/30/21 13:47 Freq: Status: Active Protocol: RPE Activity Type Activity Date Activity User E-Sign Co-Sign Detail Recorded Client Recorded Date Recorded By Document 12/30/21 13:00 KMV [email or web address] 12/30/21 13:51 KMV Document 12/30/21 13:05 KMV [email or web address] 12/30/21 13:51 KMV Document 12/30/21 13:10 KMV [email or web address] 12/30/21 13:51 KMV Document 12/30/21 13:15 KMV [email or web address] 12/30/21 13:51 KMV 12/30/21 12/30/21 12/30/21 13:00 13:05 13:10 Home O2 Evaluation Test Phase Resting Exercise Exercise Oxygen Delivery Room Air Room Air Nasal Cannula Oxygen Flow Rate (L/min) 2 Pulse Oximetry (90-100 %) 95 89 L 94 Pulse Rate (60-100 beats/min) 68 80 66 Activity Tolerance Poor Poor Poor Rating of Perceived Dyspnea (PD) +4 Severe Difficulty, Participant Cannot Continue Rate of Perceived Exertion (PE) 20 Ambulation Distance (feet) 150 Ambulation Distance (meters) 45.71 Home Oxygen Evaluation Comments Treatment Charges O2 Evaluation - Outpatient 12/30/21 13:15 Home O2 Evaluation Test Phase Resting Oxygen Delivery Room Air Oxygen Flow Rate (L/min) Pulse Oximetry (90-100 %) 95 Pulse Rate (60-100 beats/min) 65 Activity Tolerance Rating of Perceived Dyspnea (PD) Rate of Perceived Exertion (PE) Ambulation Distance (feet) Ambulation Distance (meters) Home Oxygen Evaluation Comments PT HAS O2 AT HOME. HE IS VERY SOB UNABLE TO WALK PAST 150 FT NEEDED WHEELCHAIR. Treatment Charges
== END 2021-12-30 12:11 | disposition home or self-care (01) ==
PROVIDERS: PCP Internal Medicine; Referring Provider Internal Medicine Cardiovascular Disease; Visit Provider Nurse Practitioner Family
DX: I25.10 Atherosclerotic heart disease of native coronary artery without angina pectoris (principal); I50.42 Chronic combined systolic (congestive) and diastolic (congestive) heart failure
CPT/HCPCS: 36415; 80053; 83540; 83550; 83880; 85025; 94618

== ENCOUNTER 2022-01-26 01:21 | Day surgery (SDC) | payer MEDICARE, SELFPAY ==
[2022-01-21 11:54] VITALS: BMI 32.0
[2022-01-26 09:03] VITALS: BP 125/53; PULSE 62; RESP 24; TEMP 36.1; O2SAT 97
--- NOTE | 2022-01-26 09:06 | WPDGICN ---
Assessment and Plan Assessment and plan (1) Dysphagia: Code(s): R13.10 - Dysphagia, unspecified Status: Acute Assessment and Plan: Patient states that he has difficulty swallowing solid foods. These will occasionally get caught causing him to vomit. He has a known history of esophageal stricture. For this reason follow-up EGD advised. (2) Esophageal stricture: Code(s): K22.2 - Esophageal obstruction Status: Acute (3) Gastro-esophageal reflux disease without esophagitis: Code(s): K21.9 - Gastro-esophageal reflux disease without esophagitis Status: Acute Assessment and Plan: Patient has an underlying history of GE reflux. Currently denies any dysphagia. He has been maintained on pantoprazole 40mg p.o. b.i.d. for some time. Plan is for follow-up EGD at this time because of complaints of dysphagia. (4) Obesity (BMI 30-39.9): Code(s): E66.9 - Obesity, unspecified Status: Acute (5) Chronic hypoxemic respiratory failure: Code(s): J96.11 - Chronic respiratory failure with hypoxia Status: Acute GI Consult Note Consult date/time: 01/26/22 09:06 HPI: Cecilio Ribeiro is a 81 year old male With underlying history of COPD has a history of esophageal stricture. Patient has noted difficulty swallowing. Will frequently get food caught in the chest. Have to vomit to relieve this. He also notices that he clears his throat frequently. Patient has a prior history of EGD that revealed esophageal stricture ring requiring dilatation. It has not been a year since last dilatation. Patient denies any heartburn. He currently is maintained on pantoprazole 40mg p.o. b.i.d. in this appears to be stable. Family history is noncontributory. patient presents today for EGD because of dysphagia. 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 placement Family History Family History Sibling Family history of cardiovascular disease Family history of coronary artery disease Family history of heart disease in male family member before age 55 Mother Family history of malignant neoplasm, Onset Age: 30 Patient's mother is Father Diabetes mellitus Family history of cardiovascular disease Social History Social History Smoking packs per day: 1 Smoking cigarettes per day: 20.0 Years smoked: 65 Smoking pack-years: 65.00 Smoking status: Former smoker Tobacco type: cigarettes Smoking end date: 09/12/11 Alcohol intake: never Substance use: never Substance use type: does not use Living arrangements: with family Spiritual care concerns: No Meds Home Medications and Allergies Home Medications Medication Instructions Recorded Confirmed Type finasteride 5 mg tablet 5 mg PO HS 07/16/19 01/21/22 History furosemide 20 mg tablet 20 mg PO QAM 07/16/19 01/21/22 History pravastatin 20 mg tablet 20 mg PO HS 07/16/19 01/21/22 History spironolactone 25 mg tablet 25 mg PO DAILY 07/16/19 01/21/22 History tamsulosin 0.4 mg capsule 0.4 mg PO QPM 07/16/19 01/21/22 History clopidogrel 75 mg tablet 75 mg PO HS 06/03/20 01/21/22 History aspirin [Adult Low Dose Aspirin] 81 mg PO QPM 07/23/20 01/21/22 History ezetimibe [Zetia] 10 mg PO DAILY 07/23/20 01/21/22 History budesonide 0.5 mg/2 mL suspension 0.5 mg INHALATION BID #120 ml 09/25/21 01/21/22 Rx for nebulization lancets 30 gauge #100 ea 09/28/21 03
[2022-01-26] MEDS: LACTATED RINGERS 1,000 ML 150 ML IV CONT (09:07)
[2022-01-26 09:16] LABS: Glucose Point of Care 117 mg/dl (65-105)
--- NOTE | 2022-01-26 09:29 | WPDANESEPPF ---
Anes - Initial Pre Proc Eval Procedure: Operation Date: 01/26/22 13:15 Proposed Procedures p Esophagogastroduodenoscopy - Yoan Arellano MD Date/Time: 01/26/22 09:29 Surgeon: Yoan Arellano MD Pre Op Diagnosis: dysphagia Patient Data Age: 81 Gender: M Height: 1.85 m Weight: 120.2 kg Last Vital Signs Temp 97.0 F L 01/26/22 09:03 Pulse 62 01/26/22 09:03 Resp 24 H 01/26/22 09:03 BP 125/53 L 01/26/22 09:03 Pulse Ox 97 01/26/22 09:03 Allergies Allergy/AdvReac Type Severity Reaction Status Date / Time levofloxacin Allergy Intermediate Hives / Verified 01/26/22 09:00 Red Face metronidazole Allergy Intermediate Itching Verified 01/26/22 09:00 Penicillins Allergy Intermediate HIVES Verified 01/26/22 09:00 sulfamethoxazole Allergy Intermediate unknown Verified 01/26/22 09:00 tramadol Allergy Intermediate Itching Verified 01/26/22 09:00 trimethoprim Allergy Intermediate unknown Verified 01/26/22 09:00 cyclobenzaprine AdvReac Intermediate REPORTS Verified 01/26/22 09:00 INCREASED URINATION oxycodone AdvReac Intermediate gets Verified 01/26/22 09:00 goofy Home Medications Medication Instructions Recorded Confirmed Type finasteride 5 mg tablet 5 mg PO HS 07/16/19 01/21/22 History furosemide 20 mg tablet 20 mg PO QAM 07/16/19 01/21/22 History pravastatin 20 mg tablet 20 mg PO HS 07/16/19 01/21/22 History spironolactone 25 mg tablet 25 mg PO DAILY 07/16/19 01/21/22 History tamsulosin 0.4 mg capsule 0.4 mg PO QPM 07/16/19 01/21/22 History clopidogrel 75 mg tablet 75 mg PO HS 06/03/20 01/21/22 History aspirin [Adult Low Dose Aspirin] 81 mg PO QPM 07/23/20 01/21/22 History ezetimibe [Zetia] 10 mg PO DAILY 07/23/20 01/21/22 History budesonide 0.5 mg/2 mL suspension 0.5 mg INHALATION BID #120 ml 09/25/21 01/21/22 Rx for nebulization lancets 30 gauge #100 ea 09/28/21 11/12/21 Rx pantoprazole 40 mg tablet,delayed 40 mg PO BID #180 tablet 09/28/21 01/21/22 Rx release blood sugar diagnostic #100 ea 10/02/21 11/12/21 Rx blood-glucose meter #1 ea 10/02/21 11/12/21 Rx L.acid-B.animalis,bifi,inf,chelly [5X 1 cap PO QPM 01/21/22 01/21/22 History Probiotic] diphenhydramine-acetaminophen 1 tablet PO HS PRN 01/21/22 01/21/22 History [Tylenol PM Extra Strength] glimepiride 1 mg PO DAILY 01/21/22 01/21/22 History ipratropium-albuterol 3 ml INHALATION BID 01/21/22 01/21/22 History lisinopril 5 mg PO DAILY 01/21/22 01/21/22 History Laboratory Tests 01/26/22 09:13 POC Capillary Glucose 117 mg/dl H mg/dl (65-105) Patient hx anesthesia problems: none Family hx anesthesia problems: none Results Review: All pre-operative results and documents have been reviewed as part of the pre-operative evaluation. 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 placement Family History Family History Sibling Family history of cardiovascular disease Family history of coronary artery disease Family history of heart disease in male family member before age 55 Mother Family history of malignant neoplasm, Onset Age: 30 Patient's mother is Father Diabetes mellitus Family history of cardiovascular disease Social History Social History Smoking packs per day: 1 Smoking cigarettes per day: 20.0 Years smoked: 65 Smoking pack-years: 65.00 Smoking status: Former smoker Tobacco type: cigarettes Smoking end date: 09/12/11 Alcohol intake: never Substance use: never Substance use type: does not use Living arrangements: with f
[2022-01-26 09:45] VITALS: BP 88/54; PULSE 60; RESP 16; O2SAT 95
[2022-01-26 09:55] VITALS: BP 114/67; PULSE 53; RESP 22; O2SAT 97
[2022-01-26 10:05] VITALS: BP 121/61; PULSE 56; RESP 24; O2SAT 96
== END 2022-01-26 10:15 | disposition home or self-care (01) ==
PROVIDERS: PCP Internal Medicine; Visit Provider Internal Medicine Gastroenterology
PROC: 0DJ08ZZ Inspection of Upper Intestinal Tract, Via Natural or Artificial Opening Endoscopic (ICD-10-PCS; CPT 43235; principal; 2022-01-26 13:15)
DX: Q39.4 Esophageal web (principal); K44.9 Diaphragmatic hernia without obstruction or gangrene; K21.9 Gastro-esophageal reflux disease without esophagitis; J96.11 Chronic respiratory failure with hypoxia; E66.9 Obesity, unspecified; Z68.35 Body mass index [BMI] 35.0-35.9, adult; I25.2 Old myocardial infarction; Z87.891 Personal history of nicotine dependence; Z79.51 Long term (current) use of inhaled steroids; Z79.02 Long term (current) use of antithrombotics/antiplatelets; Z79.82 Long term (current) use of aspirin; Z79.84 Long term (current) use of oral hypoglycemic drugs
CPT/HCPCS: 43249; 82948; C1726; J2704; J7120

== ENCOUNTER 2022-03-31 10:40 | Outpatient (CLI) | payer MEDICARE, SELFPAY ==
[2022-03-31 11:11] LABS: Anion Gap 6 mmol/L (8-16); Blood Urea Nitrogen 15 mg/dL (9-20); Calcium 8.5 mg/dL (8.4-10.2); Carbon Dioxide 28 mmol/L (22-30); Chloride 100 mmol/L (98-107); Estimated Glomerular Filt Rate > 60; Glucose 189 mg/dL (65-110); Potassium 4.3 mmol/L (3.4-5.0); Sodium 134 mmol/L (137-145)
== END 2022-03-31 10:41 | disposition home or self-care (01) ==
LOC: ANHLAB 10:43
PROVIDERS: PCP Family Medicine; Visit Provider Internal Medicine Cardiovascular Disease
DX: M79.89 Other specified soft tissue disorders (principal); I50.42 Chronic combined systolic (congestive) and diastolic (congestive) heart failure
CPT/HCPCS: 36415; 80048

== ENCOUNTER 2022-05-31 09:43 | Outpatient (CLI) | payer MEDICARE, SELFPAY ==
--- NOTE | ~2022-05-31 | CT_ITS ---
EXAMINATION: CT diagnostic chest wo con DATE: 05/31/2022 10:07 INDICATION: Lung nodule follow-up TECHNIQUE: Computed tomography (CT) of the chest was performed without intravenous contrast. Automate d exposure control and iterative reconstruction technique were employed. Exam dose: 400.66 mGy-cm to [place] exam DLP. COMPARISON: 11/19/2020 CT chest 05/13/2020 PET/CT scan 05/06/2020 CT lung screening FINDINGS: There is chronic discoid scarring in the lower lobes and lingula. No pulmonary infiltrate o r consolidation. Mild thoracic aortic aneurysm is again noted, the ascending aorta measures approximately 4.[address], stable since 05/06/2020 there is extensive thoracic aortic as well as great vessel and extensive coronary artery calcification. Normal heart size. No pericardial or pleural effusion. Moderate emphysematous changes of the lungs. No new or enlarging pulmonary mass density is noted sinc e 11/19/2020 over 05/06/2020. Moderately large sliding hiatal hernia with fundoplication device in the lower mediastinum. Normal morphology of the adrenal glands. There is extensive calcification of the abdominal aorta, yuliya iac, mesenteric and renal arteries. New mild compression fracture deformity of T4 since 11/19/2020. Stable mild anterior wedge compression fracture deformity of T7. Stable moderate anterior wedge compression fracture deformity of L1. Diffuse idiopathic skeletal hyperostosis of the thoracic spine. Old right rib fractures. IMPRESSION: Moderate emphysema Stable bilateral lung discoid scarring; no new or enlarging pulmonary mass density is noted Reviewed, dictated and finalized at [facility]. Reviewed, dictated and finalized at [facility]. IMPRESSION: Moderate emphysema Stable bilateral lung discoid scarring; no new or enlarging pulmonary mass dens ity is noted
== END 2022-05-31 09:44 | disposition home or self-care (01) ==
PROVIDERS: PCP Family Medicine; Visit Provider Nurse Practitioner Family
DX: R91.1 Solitary pulmonary nodule (principal)
CPT/HCPCS: 71250

== ENCOUNTER 2022-06-15 01:16 | Day surgery (SDC) | payer MEDICARE, SELFPAY ==
[2022-06-04 14:01] VITALS: BMI 37.8
[2022-06-15 06:22] VITALS: BP 128/63; PULSE 57; RESP 24; TEMP 36.5; O2SAT 98; BMI 37.2
[2022-06-15] MEDS: LACTATED RINGERS 1,000 ML 150 ML IV CONT (06:25)
[2022-06-15 06:37] LABS: Glucose Point of Care 119 mg/dl (65-105)
--- NOTE | 2022-06-15 07:28 | WPDANESEPPF ---
Anes - Initial Pre Proc Eval Procedure: Operation Date: 06/15/22 07:30 Proposed Procedures p Esophagogastroduodenoscopy EGD - Yoan Arellano MD Date/Time: 06/15/22 07:28 Surgeon: Yoan Arellano MD Pre Op Diagnosis: esophageal stricture Patient Data Age: 81 Gender: M Height: 1.78 m Weight: 117.7 kg Last Vital Signs Temp 97.7 F 06/15/22 06:22 Pulse 57 L 06/15/22 06:22 Resp 24 H 06/15/22 06:22 BP 128/63 06/15/22 06:22 Pulse Ox 98 06/15/22 06:22 O2 Del Method Nasal Cannula 06/15/22 06:22 O2 Flow Rate 3 06/15/22 06:22 Allergies Allergy/AdvReac Type Severity Reaction Status Date / Time levofloxacin Allergy Intermediate Hives / Verified 06/15/22 06:19 Red Face metronidazole Allergy Intermediate Itching Verified 06/15/22 06:19 Penicillins Allergy Intermediate HIVES Verified 06/15/22 06:19 sulfamethoxazole Allergy Intermediate unknown Verified 06/15/22 06:19 tramadol Allergy Intermediate Itching Verified 06/15/22 06:19 trimethoprim Allergy Intermediate unknown Verified 06/15/22 06:19 cyclobenzaprine AdvReac Intermediate REPORTS Verified 06/15/22 06:19 INCREASED URINATION oxycodone AdvReac Intermediate gets Verified 06/15/22 06:19 goofy Home Medications Medication Instructions Recorded Confirmed Type finasteride 5 mg tablet 5 mg PO HS 07/16/19 06/04/22 History pravastatin 20 mg tablet 20 mg PO HS 07/16/19 06/04/22 History spironolactone 25 mg tablet 25 mg PO DAILY 07/16/19 06/04/22 History tamsulosin 0.4 mg capsule 0.4 mg PO QPM 07/16/19 06/04/22 History clopidogrel 75 mg tablet (Plavix) 75 mg PO HS 06/03/20 06/04/22 History aspirin 81 mg tablet 81 mg PO QPM 07/23/20 06/04/22 History ezetimibe 10 mg tablet (Zetia) 10 mg PO DAILY 07/23/20 06/04/22 History lancets 30 gauge (Ultra Fine #100 ea 09/28/21 06/04/22 Rx Lancets) pantoprazole 40 mg tablet,delayed 40 mg PO BID #180 tabs 09/28/21 06/04/22 Rx release blood-glucose meter (OneTouch #1 ea 10/02/21 06/04/22 Rx Ultra2 Meter) diphenhydramine 25 1 tablet PO HS PRN Insomnia 01/21/22 06/04/22 History mg-acetaminophen 500 mg tablet (Tylenol PM Extra Strength) glimepiride 1 mg tablet 1 mg PO DAILY 01/21/22 06/04/22 History lisinopril 5 mg tablet 5 mg PO DAILY 01/21/22 06/04/22 History blood sugar diagnostic (OneTouch #100 ea 04/02/22 06/04/22 Rx Ultra Test strips) albuterol sulfate 2.5 mg/3 mL 2.5 mg (3 mL) inhalation BID PRN 05/13/22 06/04/22 Rx (0.083 %) solution for nebulization shortness of breath or wheezing #180 mL arformoterol 15 mcg/2 mL solution 2 ml inhalation BID #120 mL 05/13/22 06/04/22 Rx for nebulization (Brovana) budesonide 0.5 mg/2 mL suspension 0.5 mg (2 mL) inhalation BID #120 05/13/22 06/04/22 Rx for nebulization mL furosemide 20 mg tablet (Lasix) 40 mg PO QAM 05/13/22 06/04/22 History oxybutynin chloride 15 mg 15 mg PO DAILY 05/13/22 06/04/22 History tablet,extended release 24 hr revefenacin 175 mcg/3 mL solution 175 mcg (3 mL) inhalation DAILY 05/13/22 06/04/22 Rx for nebulization (Yupelri) #90 mL Laboratory Tests 06/15/22 06:34 POC Capillary Glucose 119 mg/dl H mg/dl (65-105) Patient hx anesthesia problems: none Family hx anesthesia problems: none Results Review: All pre-operative results and documents have been reviewed as part of the pre-operative evaluation. 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
--- NOTE | 2022-06-15 07:29 | PM.HPGS ---
History of Present Illness History of Present Illness Consent: Risks, benefits, and alternatives have been discussed and questions answered. Patient agrees to proceed with procedure. Chief complaint: esophageal stricture Narrative: Cecilio Ribeiro is a 81 year old male With a history of severe COPD. Complains of recurrent difficulty swallowing. He will regurgitate food. He has difficulty unless food is very small. Patient had recurrent stricture most recent dilatation several months ago. Patient denies any weight loss. Denies any heartburn. Currently maintained on pantoprazole 40mg p.o. b.i.d.. Presents today for follow-up EGD because of difficulty swallowing. Review of Systems Review of Systems: Review of systems primarily significant for regurgitation of phlegm. Difficulty breathing. Family history noncontributory. 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 placement Family History Family History Sibling Family history of cardiovascular disease Family history of coronary artery disease Family history of heart disease in male family member before age 55 Mother Family history of malignant neoplasm, Onset Age: 30 Patient's mother is Father Diabetes mellitus Family history of cardiovascular disease Social History Social History Smoking packs per day: 1 Smoking cigarettes per day: 20.0 Years smoked: 65 Smoking pack-years: 65.00 Smoking status: Former smoker Tobacco type: cigarettes Smoking end date: 09/12/11 Alcohol intake: never Substance use: never Substance use type: does not use Living arrangements: with family Spiritual care concerns: No Meds Home Medications and Allergies Home Medications Medication Instructions Recorded Confirmed Type finasteride 5 mg tablet 5 mg PO HS 07/16/19 06/04/22 History pravastatin 20 mg tablet 20 mg PO HS 07/16/19 06/04/22 History spironolactone 25 mg tablet 25 mg PO DAILY 07/16/19 06/04/22 History tamsulosin 0.4 mg capsule 0.4 mg PO QPM 07/16/19 06/04/22 History clopidogrel 75 mg tablet (Plavix) 75 mg PO HS 06/03/20 06/04/22 History aspirin 81 mg tablet 81 mg PO QPM 07/23/20 06/04/22 History ezetimibe 10 mg tablet (Zetia) 10 mg PO DAILY 07/23/20 06/04/22 History lancets 30 gauge (Ultra Fine #100 ea 09/28/21 06/04/22 Rx Lancets) pantoprazole 40 mg tablet,delayed 40 mg PO BID #180 tabs 09/28/21 06/04/22 Rx release blood-glucose meter (OneTouch #1 ea 10/02/21 06/04/22 Rx Ultra2 Meter) diphenhydramine 25 1 tablet PO HS PRN Insomnia 01/21/22 06/04/22 History mg-acetaminophen 500 mg tablet (Tylenol PM Extra Strength) glimepiride 1 mg tablet 1 mg PO DAILY 01/21/22 06/04/22 History lisinopril 5 mg tablet 5 mg PO DAILY 01/21/22 06/04/22 History blood sugar diagnostic (OneTouch #100 ea 04/02/22 06/04/22 Rx Ultra Test strips) albuterol sulfate 2.5 mg/3 mL 2.5 mg (3 mL) inhalation BID PRN 05/13/22 06/04/22 Rx (0.083 %) solution for nebulization shortness of breath or wheezing #180 mL arformoterol 15 mcg/2 mL solution 2 ml inhalation BID #120 mL 05/13/22 06/04/22 Rx for nebulization (Brovana) budesonide 0.5 mg/2 mL suspension 0.5 mg (2 mL) inhalation BID #120 05/13/22 06/04/22 Rx for nebulization mL furosemide 20 mg tablet (Lasix) 40 mg PO QAM 05/13/22 06/04/22 History oxybutynin chloride 15 mg 15 mg PO DAILY 05/13/22 06/04/22 History tablet,extended release 24 hr revefenacin 175 mcg/3 mL solution 175 mcg (3 mL) inhalation DAILY 05/13/22 06/04/22 Rx for nebulization
[2022-06-15] MEDS: BENZOCAINE (*SP) 60 ML SPRAY CAN (HURRICAINE) 1 SPRAY MUCOUS MEM (07:36)
[2022-06-15 07:45] VITALS: BP 118/57; PULSE 53; RESP 18; O2SAT 100
[2022-06-15 07:55] VITALS: BP 122/59; PULSE 52; RESP 17; O2SAT 99
--- NOTE | 2022-06-15 08:02 | SUR.PHASEII ---
Educated patient and family to restart plavix tomorrow 06/16/[address] Arellano.
[2022-06-15 08:05] VITALS: BP 132/57; PULSE 51; RESP 18; O2SAT 96
== END 2022-06-15 08:20 | disposition home or self-care (01) ==
PROVIDERS: PCP Family Medicine; Visit Provider Internal Medicine Gastroenterology
PROC: 0DJ08ZZ Inspection of Upper Intestinal Tract, Via Natural or Artificial Opening Endoscopic (ICD-10-PCS; CPT 43235; principal; 2022-06-15 07:30)
DX: R13.19 Other dysphagia (principal); K21.9 Gastro-esophageal reflux disease without esophagitis; Q39.4 Esophageal web; J44.9 Chronic obstructive pulmonary disease, unspecified; I25.2 Old myocardial infarction; Z87.891 Personal history of nicotine dependence; Z79.82 Long term (current) use of aspirin; Z79.899 Other long term (current) drug therapy; Z79.51 Long term (current) use of inhaled steroids; E66.9 Obesity, unspecified; Z68.37 Body mass index [BMI] 37.0-37.9, adult
CPT/HCPCS: 43249; 82948; C1726; J7120

== ENCOUNTER 2022-07-26 10:48 | Outpatient (CLI) | payer MEDICARE, SELFPAY ==
[2022-07-26 12:21] LABS: Anion Gap 9 mmol/L (8-16); Blood Urea Nitrogen 17 mg/dL (9-20); Calcium 8.7 mg/dL (8.4-10.2); Carbon Dioxide 30 mmol/L (22-30); Chloride 97 mmol/L (98-107); Estimated Glomerular Filt Rate 58; Glucose 141 mg/dL (65-110); Potassium 4.1 mmol/L (3.4-5.0); Sodium 136 mmol/L (137-145)
== END 2022-07-26 10:49 | disposition home or self-care (01) ==
LOC: ANHLAB 10:49
PROVIDERS: PCP Family Medicine; Visit Provider Internal Medicine Cardiovascular Disease
DX: I50.42 Chronic combined systolic (congestive) and diastolic (congestive) heart failure (principal)
CPT/HCPCS: 36415; 80048

== ENCOUNTER 2022-11-09 10:00 | Outpatient (CLI) | payer MEDICARE, SELFPAY ==
--- NOTE | ~2022-11-09 | XR_ITS ---
EXAMINATION: XR barium swallow modified DATE: 11/09/2022 10:49 INDICATION: Choking. TECHNIQUE: The patient was given barium-containing material of multiple consistencies to swallow by kenny kidd speech pathologist while I performed fluoroscopy. Dose-area product was [id number] Gy-cm2. FINDINGS: Oral Stage: Within functional limits Pharyngeal Phase: Within functional limits Cervical/Esophageal Stage: Within functional limits IMPRESSION: Modified esophagram findings as above. Please refer to the [facility]. Reviewed, dictated and finalized at [facility]. Reviewed, dictated and finalized at location [facility]. TIONS ARCHITECT CONSULTANT IMPRESSION: Modified esophagram findings as above. Please refer to the speech t herapy report for specific recommendations.
--- NOTE | 2022-11-09 11:28 | REHSTMBS ---
Assessment and note entered by Shelly Elizabeth, [employer]CTION[employer] ANALYST Modified Barium Swallow Evaluation Feeding Type Recommended Oral Food Consistency Regular, Level 7 Liquid Consistency Thin (0) ST Clinical Summary MODIFIED BARIUM SWALLOW STUDY (MBS) This patient was seen for a Modified Barium Swallow study at the request of his physician. Patient patient denied difficulty with liquids however when asked about specific foods such as meat or bread causing trouble, he would not admit to any food in particular but stated that anything could hang up in his throat. He stated that he has had at least one EGD procedure to assist with this in the past, unable to recall exactly when but stated that it did help with the problem. Patient denied sinus and allergy issues but did state he has reflux issues. Patient was viewed in the lateral position to the level of C5/C6. He was presented with thin liquid contrast, pudding mixed with semi-solid contrast medium, and crackers and fruit both coated with the semi-solid mixture. He swallowed the liquids quickly however given the pudding mixture, the fruit, and the crackers, he exhibited excessive amount of time required to manipulate and/or masticate and swallow these consistencies, possibly due to the sticky consistency of the pudding material. No penetration or aspiration was noted throughout this evaluation. Results indicate patient may remain on a Regular Diet and Regular Liquids. He is referred back to his physician for further assessment of his complaints. Thank you for this referral.
== END 2022-11-09 10:01 | disposition home or self-care (01) ==
PROVIDERS: PCP Family Medicine; Visit Provider Internal Medicine Gastroenterology
DX: R13.10 Dysphagia, unspecified (principal)
CPT/HCPCS: 92611

== ENCOUNTER 2022-12-01 11:55 | Outpatient (CLI) | payer MEDICARE, SELFPAY ==
[2022-12-01 12:32] LABS: Hematocrit 37.9 % (42.0-52.0); Hemoglobin 12.1 g/dL (14.0-18.0); Mean Corpuscular HGB Conc 31.9 g/dl (32-36); Mean Corpuscular Hemoglobin 28.3 pg (26-34); Mean Corpuscular Volume 88.8 fl (80-100); Platelet Count Result 266 k/mm3 (150-375); Red Blood Count 4.27 M/mm3 (4.6-6.20); Red Cell Distribution Width 13.8 % (11.5-14.5)
[2022-12-01 12:52] LABS: Anion Gap 8 mmol/L (8-16); Blood Urea Nitrogen 23 mg/dL (9-20); Carbon Dioxide 28 mmol/L (22-30); Chloride 98 mmol/L (98-107); Estimated Glomerular Filt Rate 58; Glucose 122 mg/dL (65-110); Potassium 4.2 mmol/L (3.4-5.0); Sodium 134 mmol/L (137-145)
== END 2022-12-01 11:56 | disposition home or self-care (01) ==
LOC: ANHLAB 11:57
PROVIDERS: PCP Family Medicine; Visit Provider Internal Medicine Cardiovascular Disease
DX: I50.42 Chronic combined systolic (congestive) and diastolic (congestive) heart failure (principal)
CPT/HCPCS: 36415; 80048; 85027

== ENCOUNTER 2023-05-18 17:10 | Outpatient (NON) | payer MEDICARE, SELFPAY | END 2023-05-18 17:11 | disposition home or self-care (01) | LOC: ANHLAB 17:12 | PROVIDERS: PCP Family Medicine; Visit Provider Family Medicine | DX: L98.9 Disorder of the skin and subcutaneous tissue, unspecified (principal) | CPT/HCPCS: 36415 ==

== ENCOUNTER 2023-05-20 08:21 | Emergency (ER) | payer MEDICARE, SELFPAY ==
[2023-05-20 08:26] VITALS: BP 141/66; PULSE 87; RESP 20; O2SAT 98
--- NOTE | 2023-05-20 08:36 | PC.NURSE ---
ERP applies silver nitrate to wound and stops bleeding at this time.
--- NOTE | 2023-05-20 08:42 | ED.WOUNDLAC ---
HPI - Wound/Laceration General Chief Complaint: Wound/Laceration Stated Complaint: wound check Time Seen by Provider: 05/20/23 08:24 Source: patient, family, RN notes reviewed and old records reviewed Mode of arrival: wheelchair Limitations: dementia History of Present Illness HPI narrative: This is an 82 year old male with history of dementia, chronic respiratory failure on 3 L NC who presents for evaluation of right forearm bleeding wound. His is giving history due to patient having dementia. She reports 3-4 days ago patient was evaluated by his PCP for lesion to his right forearm. His states his pcp took a biopsy to removed the lesion. It sounds like the wound was cauterized with silver nitrate. She states the wound started bleeding last night and she has been unable to get it to stop. This morning patient called for help and she found his bandage was soaked. Related Data Home Medications Medication Instructions Recorded Confirmed finasteride 5 mg tablet 5 mg PO HS 07/16/19 05/17/23 pravastatin 20 mg tablet 20 mg PO HS 07/16/19 05/17/23 spironolactone 25 mg tablet 25 mg PO DAILY 07/16/19 05/17/23 tamsulosin 0.4 mg capsule 0.4 mg PO QPM 07/16/19 05/17/23 clopidogrel 75 mg tablet (Plavix) 75 mg PO HS 06/03/20 05/17/23 aspirin 81 mg tablet 81 mg PO QPM 07/23/20 05/17/23 ezetimibe 10 mg tablet (Zetia) 10 mg PO DAILY 07/23/20 05/17/23 diphenhydramine 25 1 tablet PO HS PRN Insomnia 01/21/22 05/17/23 mg-acetaminophen 500 mg tablet (Tylenol PM Extra Strength) lisinopril 5 mg tablet 5 mg PO DAILY 01/21/22 05/17/23 oxybutynin chloride 15 mg 15 mg PO DAILY 05/13/22 05/17/23 tablet,extended release 24 hr bumetanide 2 mg tablet 2 mg PO DAILY 10/14/22 05/17/23 Allergies Allergy/AdvReac Type Severity Reaction Status Date / Time levofloxacin Allergy Intermediate Hives / Verified 05/20/23 08:31 Red Face metronidazole Allergy Intermediate Itching Verified 05/20/23 08:31 Penicillins Allergy Intermediate HIVES Verified 05/20/23 08:31 sulfamethoxazole Allergy Intermediate unknown Verified 05/20/23 08:31 tramadol Allergy Intermediate Itching Verified 05/20/23 08:31 trimethoprim Allergy Intermediate unknown Verified 05/20/23 08:31 cyclobenzaprine AdvReac Intermediate REPORTS Verified 05/20/23 08:31 INCREASED URINATION oxycodone AdvReac Intermediate gets Verified 05/20/23 08:31 goofy Review of Systems Review of Systems: ROS unobtainable: Yes other (dementia) [facility] Past Medical History Medical History (Updated 05/20/23 @ 18:33 by Gavi Bowden MD) Adult BMI 36.0-36.9 kg/sq m Body mass index (BMI) 35.0-35.9, adult (06/20/18) Cardiomyopathy, ischemic Debility NSTEMI (non-ST elevated myocardial infarction) Surgical History Surgical History S/P percutaneous 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 angioplasty (FORENSIC DOCUMENT EXAMINER) with stent placement Family History Family History Sibling Family history of cardiovascular disease Family history of coronary artery disease Family history of heart disease in male family member before age 55 Mother Family history of malignant neoplasm, Onset Age: 30 Patient's mother is Father Diabetes mellitus Family history of cardiovascular disease Social History Social History Smoking packs per day: 1 Smoking cigarettes per day: 20.0 Years smoked: 65 Smoking pack-years: 65.00 Smoking status: Former smoker Tobacco type: cigarettes Smoking end date: 09/12/11 Alcohol intake: never Substance use: never Substance use type: does not use Living arrangements: with family Spiritual care concerns: No Course Vital Signs Vital signs: Vital Signs Pulse Rate 87 05/20/23 08:26 Respiratory Rate 20 05/20/23 08:26 Blood Pressure 141/66 H 05/20/23 08:26 Pulse Oximetry 98
--- NOTE | 2023-05-20 09:20 | PC.NURSE ---
Wound has no bleeding at this time.
[2023-05-20 10:16] VITALS: BP 112/61; PULSE 62; RESP 20; O2SAT 98
== END 2023-05-20 10:32 | disposition home or self-care (01) ==
PROVIDERS: Emergency Provider General Practice; PCP Family Medicine
DX: L76.22 Postprocedural hemorrhage of skin and subcutaneous tissue following other procedure (principal); F03.90 Unspecified dementia, unspecified severity, without behavioral disturbance, psychotic disturbance, mood disturbance, and anxiety; J96.10 Chronic respiratory failure, unspecified whether with hypoxia or hypercapnia; Z99.81 Dependence on supplemental oxygen; I25.5 Ischemic cardiomyopathy; I25.2 Old myocardial infarction; Z95.5 Presence of coronary angioplasty implant and graft; Z87.891 Personal history of nicotine dependence; Z79.82 Long term (current) use of aspirin; Z79.02 Long term (current) use of antithrombotics/antiplatelets
CPT/HCPCS: 12001; 99283

== ENCOUNTER 2023-11-15 10:25 | Inpatient (IN) | payer MEDICARE, SELFPAY ==
[2023-11-15] VITALS (16 sets, daily range): BP systolic 111–137; BP diastolic 56–84; PULSE 65–81; RESP 16–25; TEMP 36.3–36.9; O2SAT 82–96
--- NOTE | ~2023-11-15 | CT_ITS ---
EXAMINATION: CT brain wo con INDICATION: Myoclonic jerking COMPARISON: 07/23/2020 TECHNIQUE: Standard unenhanced head CT. The dose-length product (DLP) was 756.67 mGy-cm. The mA was a djusted according to patient size. Iterative reconstruction technique was employed. FINDINGS: No acute intraparenchymal hemorrhage. No evidence of mass lesion. No evidence of acute infa rction. There is moderate periventricular and subcortical hypodensity probably related to small vesse l ischemic disease. There is moderate prominence of the sulci and ventricles related to cerebral atro phy. Intracranial calcified cerebral atherosclerosis is noted. No extra-axial collections. No mass ef fect or midline shift. Changes in the globes are likely from ocular lens surgery. There is chronic bi lateral enlargement of the superior orbital veins, likely normal variant. The visualized sinuses and mastoid air cells are well aerated. IMPRESSION: 1. No acute intracranial abnormality. 2. Age related findings. Reviewed, dictated and finalized at location L. IFIED TUMOR REGISTRAR
--- NOTE | ~2023-11-15 | XR_ITS ---
EXAMINATION: XR chest 2V DATE: 11/15/2023 12:18 INDICATION: Shortness of breath TECHNIQUE: AP and lateral views of the chest are obtained. COMPARISON: 07/23/2020 FINDINGS: There are airspace opacities of the lower lobes. There is a questionable nodule of the righ t lung base. No pleural effusion or pneumothorax. The cardiomediastinal silhouette is normal. There i s moderate thoracic spondylosis. Median sternotomy wires and mediastinal surgical clips are seen, lik hoang from prior coronary artery bypass grafting. IMPRESSION: 1. Bibasilar airspace opacities, consistent with atelectasis versus pneumonia. 2. Possible nodule of the right lung base. Follow-up chest CT is recommended. Reviewed, dictated and finalized at location L. STANT WOMEN'S BASKETBALL COACH
--- NOTE | 2023-11-15 10:39 | ECG_ITS ---
Measurements Intervals [place] Rate: 78 P: 0 ND: 219 QRS: -16 QRSD: 177 T: 167 QT: 465 QTc: 531 Interpretive Statements SINUS RHYTHM WITH FIRST DEGREE AV BLOCK VENTRICULAR PREMATURE COMPLEX LEFT BUNDLE BRANCH BLOCK BASELINE ARTIFACT- I, II, III, AVR, AVL, AVF, V1-V6 ABNORMAL ECG COMPARED TO ECG 07/23/2020 13:06:52 SINUS RHYTHM NOW PRESENT Electronically Signed On 11-15-2023 10:54:40 FIELD REVIEWER by Raza Modi D.O.
[2023-11-15 10:45] LABS: Alveolar/Arterial O2 Gradient 137.1 mmHg; Fractional Inspired Oxygen 36 %; HCO3 ABG 29.3 mEq/l (22.0-26.0); Oxygen Content ABG 14.4 %vol (16.0-22.0); Oxygen Saturation ABG 88.8 % (95.0-100.0); PCO2 ABG 52.9 mmHg (35.0-45.0); PO2 ABG 58.2 mmHg (80.0-100.0); PO2 FiO2 Ratio Arterial Blood 1.62 %; Total Hemoglobin 11.7 g/dL (12.0-18.0); pH ABG 7.361 (7.350-7.450)
[2023-11-15 10:49] LABS: Device NASAL CANNULA; Modified Allen's Test Pass; Oxyhemoglobin 87.7 % THb (90.0-100.0); Site Drawn RIGHT RADIAL
[2023-11-15] MEDS: IPRATROPIUM BR 0.02% INH SOLN 0.5 MG/2.5 ML VIAL 1 MG INHALATION (10:55)
[2023-11-15] MEDS: ALBUTEROL SULFATE NEB 2.5 MG/3 ML INH 10 MG INHALATION (10:55)
[2023-11-15 11:02] LABS: Basophils Percent Auto 0.3 % (0.2-1.2); Eosinophils Absolute Auto 0.1 K/mm3 (0-0.3); Eosinophils Percent Auto 0.8 % (0-4.4); Hematocrit 34.6 % (42.0-52.0); Hemoglobin 10.6 g/dL (14.0-18.0); Immature Granulocyte Absolute 0.03 K/mm3 (0.00-0.031); Immature Granulocyte Percent A 0.4 % (0-0.5); Lymphocytes Absolute Auto 0.54 K/mm3 (0.9-3.2); Mean Corpuscular HGB Conc 30.6 g/dl (32-36); Mean Corpuscular Hemoglobin 27.6 pg (26-34); Mean Corpuscular Volume 90.1 fl (80-100); Monocytes Absolute Auto 0.5 K/mm3 (0.1-0.6); Neutrophils Absolute Auto 6.5 K/mm3 (1.3-6.7); Neutrophils Percent Auto 84.5 % (45.5-73.1); Platelet Count Result 248 k/mm3 (150-375); Red Blood Count 3.84 M/mm3 (4.6-6.20); Red Cell Distribution Width 13.9 % (11.5-14.5); White Blood Count 7.7 K/mm3 (4.5-10.0)
[2023-11-15 11:14] LABS: Alanine Aminotransferase 11 U/L (6-50); Albumin Level 4.1 g/dL (3.5-5.1); Alkaline Phosphatase 80 U/L (38-126); Anion Gap 10 mmol/L (8-16); Aspartate Amino Transferase 20 U/L (17-59); Bilirubin,Total 1.1 mg/dL (0.2-1.3); Blood Urea Nitrogen 21 mg/dL (9-20); Calcium 9.3 mg/dL (8.4-10.2); Carbon Dioxide 30 mmol/L (22-30); Chloride 95 mmol/L (98-107); Estimated CRCL calculation 50 ml/min; Estimated Glomerular Filt Rate 58; Glucose 172 mg/dL (65-110); Potassium 3.9 mmol/L (3.4-5.0); Sodium 135 mmol/L (137-145)
--- NOTE | 2023-11-15 11:39 | ED.SOB ---
HPI - SOB/Dyspnea General Chief Complaint: Shortness of Breath/Dyspnea Stated Complaint: shortness of breath Time Seen by Provider: 11/15/23 10:58 History of Present Illness HPI Narrative: Patient is an 82-year-old male with history of CAD, CHF here with shortness of breath. states that over the last week he seems to have worsening shortness of breath, typically wears 3 L of oxygen at baseline. Over the last couple of days they have been in contact with his change management specialist who ordered a chest x-ray to be performed today. She notes that she has increased his home oxygen from 3-3.5 L. He takes Bumex 2 mg daily. does not notice any increase in lower extremity swelling. Last night he had difficulty sleeping due to both his shortness of breath as well as some twitching to his bilateral upper and lower extremities. states that he has had a history of a tremor in his hands but this seems to be involving his entire body at this time. No cough, congestion, fever, chills. Related Data Home Medications Medication Instructions Recorded Confirmed finasteride 5 mg tablet 5 mg PO HS 07/16/19 11/15/23 pravastatin 20 mg tablet 20 mg PO HS 07/16/19 11/15/23 spironolactone 25 mg tablet 25 mg PO DAILY 07/16/19 11/15/23 tamsulosin 0.4 mg capsule 0.4 mg PO QPM 07/16/19 11/15/23 clopidogrel 75 mg tablet (Plavix) 75 mg PO HS 06/03/20 11/15/23 aspirin 81 mg tablet 81 mg PO QPM 07/23/20 11/15/23 ezetimibe 10 mg tablet (Zetia) 10 mg PO DAILY 07/23/20 11/15/23 diphenhydramine 25 1 tablet PO HS PRN Insomnia 01/21/22 11/15/23 mg-acetaminophen 500 mg tablet (Tylenol PM Extra Strength) lisinopril 5 mg tablet 5 mg PO DAILY 01/21/22 11/15/23 oxybutynin chloride 15 mg 15 mg PO DAILY 05/13/22 11/15/23 tablet,extended release 24 hr bumetanide 2 mg tablet 2 mg PO DAILY 10/14/22 11/15/23 Allergies Allergy/AdvReac Type Severity Reaction Status Date / Time levofloxacin Allergy Intermediate Hives / Verified 11/15/23 11:00 Red Face metronidazole Allergy Intermediate Itching Verified 11/15/23 11:00 Penicillins Allergy Intermediate HIVES Verified 11/15/23 11:00 sulfamethoxazole Allergy Intermediate unknown Verified 11/15/23 11:00 tramadol Allergy Intermediate Itching Verified 11/15/23 11:00 trimethoprim Allergy Intermediate unknown Verified 11/15/23 11:00 cyclobenzaprine AdvReac Intermediate REPORTS Verified 11/15/23 11:00 INCREASED URINATION oxycodone AdvReac Intermediate gets Verified 10/18/23 14:01 goofy Review of Systems Review of Systems: All systems reviewed & are unremarkable except as noted in HPI and below PMFSH Past Medical History Medical History Adult BMI 36.0-36.9 kg/sq m Body mass index (BMI) 35.0-35.9, adult (06/20/18) Cardiomyopathy, ischemic Debility NSTEMI (non-ST elevated myocardial infarction) Surgical History Surgical History S/P percutaneous 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 angioplasty (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) with stent placement Family History Family History Sibling Family history of cardiovascular disease Family history of coronary artery disease Family history of heart disease in male family member before age 55 Mother Family history of malignant neoplasm, Onset Age: 30 Patient's mother is Father Diabetes mellitus Family history of cardiovascular disease Social History Social History Smoking packs per day: 1 Smoking cigarettes per day: 20.0 Years smoked: 65 Smoking pack-years: 65.00 Smoking status: Former smoker Tobacco type: cigarettes Smoking end date: 09/12/11 Alcohol intake: never Substance use: never Substance use type: does not use Living arrangements: with family Spiritual care concerns: No Exam Narrative: GENERAL: Well-appearing, wel
[2023-11-15 11:43] LABS: NT Pro B Type Natriuretic Pept 302 pg/mL (19.9-100); Troponin I < 0.012 ng/mL (0.000-0.034)
[2023-11-15 12:35] LABS: Influenza A QL RT-PCR Negative (Negative); Influenza B QL RT-PCR Negative (Negative); RSV RNA, RT-PCR Negative (Negative); SARS-CoV-2 RNA PCR Negative (Negative)
--- NOTE | 2023-11-15 14:37 | ECG_ITS ---
Measurements Intervals [place] Rate: 75 P: 1 NM: 221 QRS: -35 QRSD: 180 T: 126 QT: 469 QTc: 526 Interpretive Statements SINUS RHYTHM WITH FIRST DEGREE AV BLOCK ATRIAL PREMATURE COMPLEX LEFT AXIS DEVIATION LEFT BUNDLE BRANCH BLOCK BASELINE ARTIFACT- I, II, III, AVR, AVL, AVF, V1-V2, V4-V6 ABNORMAL ECG COMPARED TO ECG 11/15/2023 10:45:45 LEFT-AXIS DEVIATION NOW PRESENT Electronically Signed On 11-15-2023 14:43:27 SPECIAL FORCES ENGINEER SERGEANT by Raza Modi D.O.
[2023-11-15] MEDS: methylPREDNISolone SOD SUCC 125 MG VIAL IV PUSH (14:43)
[2023-11-15] MEDS: cefTRIAXone 2 GM/NS 100 ML 2 GM/100 ML BAG IVPB (14:45)
[2023-11-15 15:08] LABS: Troponin I 0.013 ng/mL (0.000-0.034)
[2023-11-15] MEDS: AZITHROMYCIN 500 MG/NS 250 ML 500 MG/250 ML BAG 250 MG IVPB (15:33)
--- NOTE | 2023-11-15 16:12 | ADMGEN ---
This patient, Cecilio Ribeiro, was admitted to [facility] Surg Room 314-01. Patient/family oriented to hospital policies and general routines including ID bracelet, bed and alarms, visiting hours, pain management, procedures, bathroom and other care routines, personal items, smoking policy, room service/diet, and visiting hours. Information on how to activate the Rapid Response Team has been discussed. Patient/Family are encouraged to report perceived risks to care and to ask questions if they do not understand what they are told or what they should do.
--- NOTE | 2023-11-15 16:17 | PM.IMHP ---
H&P: HPI History of Present Illness Date/Time: 11/15/23 16:17 Chief Complaint: Shortness of breath/dyspnea Narrative: This is an 82-year-old male with a significant past medical history of ischemic cardiomyopathy, abdominal aortic aneurysm, dementia, CHF, COPD, BPH, hypertension, hyperlipidemia, type 2 diabetic, history of 2 vessel CABG who presented to the hospital with shortness of breath and dyspnea. Patient normally wears 3 L nasal cannula and upon presentation he was 82% on his 3 L with increased work of breathing. On examination today patient is alert and oriented x3, lying in the bed. He denies any fever, chills, chest pain, abdominal pain, nausea, vomiting, diarrhea. Workup in the hospital includes chest x-ray which shows bibasilar airspace opacities, possible nodule the right lung base. Head CT which was negative for any acute intracranial abnormality, age-related changes were noted. Initial labs revealed hemoglobin of 10.6, hematocrit 34.6, sodium 135, chloride 95, proBNP 302, liver enzymes were normal, troponin 0.012> 0.013. Respiratory panel was done which was negative for influenza a and B, RSV, and COVID. ABG shown a normal pH of 7.361, pCO2 of 52.9, PO2 58.2, bicarb 29.3, oxyhemoglobin 87.7 on 4 L nasal cannula. Patient was given DuoNeb, Rocephin, azithromycin, Solu-Medrol 125 mg IV push while in the ED. Review of Systems Review of Systems: All systems reviewed & are unremarkable except as noted in HPI and below Constitutional: Constitutional: Reports as per HPI and Reports no additional constitutional complaints Eyes: Eyes: Reports as per HPI and Reports no additional eye complaints ENT: Reports system reviewed and no additional complaints, except as documented and Reports as per HPI Cardiovascular: Cardiovascular: Reports as per HPI and Reports no additional cardiovascular complaints Respiratory: Respiratory: Reports as per HPI and Reports no additional respiratory complaints Gastrointestinal: Gastrointestinal: Reports as per HPI and Reports no additional gastrointestinal complaints Genitourinary: Genitourinary: Reports no additional male genitourinary complaints and Reports as per HPI Musculoskeletal: Musculoskeletal: Reports no additional musculoskeletal complaints and Reports as per HPI Integumentary/Breasts: Skin/Breast: Reports system reviewed and no additional complaints, except as docu and Reports as per HPI Neurologic: Reports system reviewed and no additional complaints, except as documented and Reports as per HPI Psychiatric: Psychiatric: Reports no additional psychiatric complaints and Reports as per HPI [facility] Past Medical History Medical History (Updated 11/15/23 @ 22:14 by Soledad Sparks APRN) Adult BMI 36.0-36.9 kg/sq m Body mass index (BMI) 35.0-35.9, adult (06/20/18) BPH (benign prostatic hyperplasia) Cardiomyopathy, ischemic CHF (congestive heart failure) COPD (chronic obstructive pulmonary disease) Debility Hyperlipidemia Hypertension NSTEMI (non-ST elevated myocardial infarction) Type 2 diabetes mellitus Surgical History Surgical History (Updated 11/15/23 @ 21:49 by Soledad Sparks APRN) H/O hernia repair Hx of CABG S/P percutaneous 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 angioplasty (EMPLOYEE 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
[2023-11-15 17:55] LABS: Glucose Point of Care 165 mg/dl (65-105)
[2023-11-15 20:27] LABS: Glucose Point of Care 184 mg/dl (65-105)
[2023-11-16] VITALS (16 sets, daily range): BP systolic 119–128; BP diastolic 55–76; PULSE 60–74; RESP 14–20; TEMP 36.2–37; O2SAT 93–95
--- NOTE | 2023-11-16 | ECHO_ITS ---
Patient Info Name: Cecilio Ribeiro Age: 82 years : 1940 Gender: Male Ht: 72 in Wt: 222 lbs BSA: 2.29 m2 HR: 63 bpm BP: 123 / 61 mmHg Heart Rhythm: Sinus Rhythm Technical Quality: Poor Exam Date: 11/16/2023 9:55 AM Exam Location: Echo Lab Patient Status: Inpatient Admit Date: 11/15/2023 Staff Ordering Physician: Soledad Sparks APRN [employer]: Austin Morgan RDCS Attending Provider: [place] Augustine M.A., MD Referring Physician: Clare KATZ; Exam Type: CA echo dop color flow w con Study Info Indications - worsening CHF Complete two-dimensional, color flow and Doppler transthoracic echocardiogram is performed with contrast to opacify the left ventricle and to improve the deliniation of the left ventricle endocardial borders. Contrast/Agitated Saline Contrast/Ag. Saline: Definity Amount: 3.00 ml Reason for Poor Study: poor echocardiographic windows Summary 1. Left ventricular chamber dimension is mildly enlarged. 2. Left ventricular systolic function is moderately reduced, estimated at 40-45%. 3. There is moderately increased left ventricular wall thickness. 4. The left ventricular diastolic function is grade I diastolic dysfunction. 5. Left atrial chamber dimension is moderately enlarged. 6. The mitral valve annulus is severely calcified. 7. There is moderate mitral valve regurgitation. 8. There is mild tricuspid valve regurgitation. 9. Mild pulmonary hypertension, estimated pulmonary arterial systolic pressure is 35 mmHg. Left Ventricle Left ventricular chamber dimension is mildly enlarged. Left ventricular systolic function is moderately reduced, estimated at 40-45%. There is moderately increased left ventricular wall thickness. The left ventricular diastolic function is grade I diastolic dysfunction. Right Ventricle Right ventricular chamber dimension is normal. Right ventricular systolic function is normal. Left Atria Left atrial chamber dimension is moderately enlarged. Right Atria Right atrial chamber dimension is normal. Atrial Septum Intact interatrial septum visualized by color flow imaging. Aortic Valve There is no aortic valve stenosis. There is trace aortic valve regurgitation. There is mild aortic valve calcification. Pulmonic Valve The pulmonic valve is normal. There is no pulmonic valve stenosis. There is trace pulmonic regurgitation. Mitral Valve There is no mitral valve stenosis. There is moderate mitral valve regurgitation. The mitral valve annulus is severely calcified. Tricuspid Valve The tricuspid valve leaflets are normal. There is no significant tricuspid valve stenosis. There is mild tricuspid valve regurgitation. Mild pulmonary hypertension, estimated pulmonary arterial systolic pressure is 35 mmHg. Pericardium/Pleural The pericardium appears normal. There is no pericardial effusion. Inferior Vena Cava Normal inferior vena cava with >50% collapse upon inspiration consistent with normal right atrial pressure, 10 mmHg. Aorta The aortic root size at the sinus of Valsalva is mildly dilated. Left Ventricular Outflow Tract Name Value Normal LVOT 2D LVOT Diameter 2.23 cm LVOT Doppler
[2023-11-16] MEDS: IPRATROPIUM 0.5 MG/ALBUTEROL SULFATE 2.5 MG AMPUL.NEB 3 ML INHALATION ×4 (01:53→19:13)
[2023-11-16] MEDS: EZETIMIBE 10 MG TABLET PO ×2 (02:14→20:40)
[2023-11-16] MEDS: oxyBUTYnin CHLORIDE XL 5 MG TAB.ER.24 15 MG PO ×2 (02:14→20:40)
[2023-11-16] MEDS: CLOPIDOGREL BISULFATE 75 MG TABLET PO ×2 (02:14→20:40)
[2023-11-16] MEDS: PRAVASTATIN SODIUM 20 MG TABLET PO ×2 (02:15→20:40)
[2023-11-16 06:30] LABS: Basophils Percent Auto 0.2 % (0.2-1.2); Hematocrit 33.3 % (42.0-52.0); Hemoglobin 10.1 g/dL (14.0-18.0); Immature Granulocyte Absolute 0.04 K/mm3 (0.00-0.031); Immature Granulocyte Percent A 0.8 % (0-0.5); Lymphocytes Absolute Auto 0.56 K/mm3 (0.9-3.2); Lymphocytes Percent Auto 11.7 % (18.3-44.2); Mean Corpuscular HGB Conc 30.3 g/dl (32-36); Mean Corpuscular Hemoglobin 27.1 pg (26-34); Mean Corpuscular Volume 89.3 fl (80-100); Mean Platelet Volume 9.4 fl (7.4-10.4); Monocytes Absolute Auto 0.4 K/mm3 (0.1-0.6); Neutrophils Absolute Auto 3.7 K/mm3 (1.3-6.7); Neutrophils Percent Auto 78.3 % (45.5-73.1); Platelet Count Result 268 k/mm3 (150-375); Red Blood Count 3.73 M/mm3 (4.6-6.20); Red Cell Distribution Width 13.7 % (11.5-14.5); White Blood Count 4.8 K/mm3 (4.5-10.0)
[2023-11-16 06:43] LABS: Alanine Aminotransferase 11 U/L (6-50); Albumin Level 3.9 g/dL (3.5-5.1); Alkaline Phosphatase 69 U/L (38-126); Anion Gap 8 mmol/L (8-16); Aspartate Amino Transferase 20 U/L (17-59); Bilirubin,Total 0.6 mg/dL (0.2-1.3); Blood Urea Nitrogen 23 mg/dL (9-20); Calcium 9.3 mg/dL (8.4-10.2); Carbon Dioxide 31 mmol/L (22-30); Chloride 96 mmol/L (98-107); Estimated CRCL calculation 65 ml/min; Estimated Glomerular Filt Rate > 60; Glucose 154 mg/dL (65-110); Potassium 4.2 mmol/L (3.4-5.0); Sodium 135 mmol/L (137-145)
[2023-11-16 07:30] LABS: Hemoglobin A1C 6.3 % (<5.7)
[2023-11-16 07:37] LABS: Glucose Point of Care 128 mg/dl (65-105)
[2023-11-16] MEDS: lisinopriL 5 MG TABLET PO (09:04)
[2023-11-16] MEDS: BUMETANIDE 1 MG TABLET 2 MG PO (09:05)
[2023-11-16] MEDS: PANTOPRAZOLE 40 MG TABLET PO ×2 (09:05→17:00)
[2023-11-16] MEDS: AZITHROMYCIN 500 MG/NS 250 ML 500 MG/250 ML BAG 250 MG IVPB (09:05)
[2023-11-16] MEDS: SPIRONOLACTONE 25 MG TABLET PO (09:05)
[2023-11-16] MEDS: ENOXAPARIN 40 MG/0.4 ML SYRINGE SUB-Q (09:06)
[2023-11-16] MEDS: methylPREDNISolone SOD SUCC 40 MG VIAL IV PUSH ×2 (09:06→16:59)
[2023-11-16] MEDS: cefTRIAXone 2 GM/NS 100 ML 2 GM/100 ML BAG IVPB (09:06)
[2023-11-16] MEDS: SERTRALINE HCL 50 MG TABLET PO (09:07)
[2023-11-16] MEDS: PERFLUTREN LIPID MICROSPHERES 1.5 ML VIAL DILUTED TO 10 ML TOTAL VOLUME IV PUSH (10:10)
[2023-11-16 11:12] LABS: Glucose Point of Care 124 mg/dl (65-105)
--- NOTE | 2023-11-16 11:24 | IVDEFINITY ---
Prior to administration of IV Definity the patient was educated on the risks and benefits of the imaging enhancing agent including potential adverse side effects. The patient verbalized understanding. Allergies were verified. No exclusion criteria were identified and at least one of the following inclusion criteria were met: 1) physician request, 2) patient technically difficult to image (per the [place] [employer]chocardi[employer] guidelines of two or more segments not discernable within the apical view), or 3) questionable left ventricular function. ?
--- NOTE | 2023-11-16 14:03 | P.PNIM_ITS ---
Progress Note: A&P Assessment and Plan (1) Acute and chronic respiratory failure with hypoxia: Code(s): J96.21 - Acute and chronic respiratory failure with hypoxia Status: Acute Assessment and Plan: 11/15/2023: * Patient presented with hypoxia 82% on 3 L which is his baseline * Likely secondary to community-acquired pneumonia, CHF exacerbation * Chest x-ray showing bibasilar airspace opacities consistent with atelectasis versus pneumonia, possible nodule of the right lung base. * Patient was given a DuoNeb, Solu-Medrol 125 mg IV push, Rocephin and azithromycin while in the ED * Continue DuoNebs q.6 hours * Solu-Medrol 40 mg b.i.d. ordered 11/16/23: * Currently on 4L NC * Continue to wean for an O2 saturation of 92% * Continue with duonebs, solumedrol, rocephin and azithromycin * Will give an additional dose of Bumex IV today for diuresis * Echo showing moderately reduced EF of 40-45%, grade 1 diastolic dysfunction, mild pulmonary edema * Cardiology consulted (2) CAP (community acquired pneumonia): Qualifiers: Laterality: unspecified laterality Qualified Code(s): J18.9 - Pneumonia, unspecified organism Code(s): J18.9 - Pneumonia, unspecified organism Status: Acute Assessment and Plan: * See above plan of care (3) CHF (congestive heart failure): Code(s): I50.9 - Heart failure, unspecified Status: Chronic Assessment and Plan: 11/15/2023: * Continue spironolactone and Bumex * Followed by Dr. Wick * Last echo was on 08/20/2022 was reviewed which shown an EF of 49%, normal RV function, diastolic dysfunction noted * Will get a repeat echo in the morning 11/16/23: * Echo showing EF of 40-45%, grade 1 diastolic dysfunction, and mild pulmonary edema * Will give additional dose of IV Bumex today * Cardiology consulted (4) COPD (chronic obstructive pulmonary disease) with emphysema: Qualifiers: Emphysema type: panlobular Qualified Code(s): J43.1 - Panlobular emphysema Code(s): J43.9 - Emphysema, unspecified Status: Chronic Assessment and Plan: 11/15/2023: * Patient uses 3 L nasal cannula at baseline, currently on 4 L nasal cannula due to hypoxia on admission * Followed outpatient by Dr. Ziegler * See above plan of care 11/16/23: * No change to current treatment plan (5) DM (diabetes mellitus) type II uncontrolled, periph vascular disorder: Code(s): E11.51 - Type 2 diabetes mellitus with diabetic peripheral angiopathy without gangrene; E11.65 - Type 2 diabetes mellitus with hyperglycemia Status: Chronic Assessment and Plan: 11/15/2023: * Blood glucose ranging 165-184 * Accu-Cheks AC and HS * Low-dose sliding scale ordered * Glimepiride 1 mg tablet on hold * Hypoglycemic protocol ordered * Diabetic consistent carbohydrate diet ordered * Will check hemoglobin A1c in the morning 11/16/23: * Continue with current treatment plan * Hgb A1c 6.3 (6) Hyperlipidemia: Code(s): E78.5 - Hyperlipidemia, unspecified Status: Chronic Assessment and Plan: 11/15/2023: * Continue aspirin, Plavix, Zetia, and pravastatin 11/16/23: * No change to current treatment plan (7) Hypertension: Code(s): I10 - Essential (primary) hypertension Status: Chronic Assessment and Plan: 11/15/2023: * Blood pressures ranging 111/71 to 123/83 * Continue lisinopril 11/16/23: * No change to current treatment plan (8) BPH (benign prostatic hyperplasia): Code(s): N40.0
--- NOTE | 2023-11-16 14:03 | PM.IMPN ---
Progress Note: A&P Assessment and Plan (1) Acute and chronic respiratory failure with hypoxia: Code(s): J96.21 - Acute and chronic respiratory failure with hypoxia Status: Acute Assessment and Plan: 11/15/2023: Patient presented with hypoxia 82% on 3 L which is his baseline Likely secondary to community-acquired pneumonia, CHF exacerbation Chest x-ray showing bibasilar airspace opacities consistent with atelectasis versus pneumonia, possible nodule of the right lung base. Patient was given a DuoNeb, Solu-Medrol 125 mg IV push, Rocephin and azithromycin while in the ED Continue DuoNebs q.6 hours Solu-Medrol 40 mg b.i.d. ordered 11/16/23: Currently on 4L NC Continue to wean for an O2 saturation of 92% Continue with duonebs, solumedrol, rocephin and azithromycin Will give an additional dose of Bumex IV today for diuresis Echo showing moderately reduced EF of 40-45%, grade 1 diastolic dysfunction, mild pulmonary edema Cardiology consulted (2) CAP (community acquired pneumonia): Qualifiers: Laterality: unspecified laterality Qualified Code(s): J18.9 - Pneumonia, unspecified organism Code(s): J18.9 - Pneumonia, unspecified organism Status: Acute Assessment and Plan: See above plan of care (3) CHF (congestive heart failure): Code(s): I50.9 - Heart failure, unspecified Status: Chronic Assessment and Plan: 11/15/2023: Continue spironolactone and Bumex Followed by Dr. Wick Last echo was on 08/20/2022 was reviewed which shown an EF of 49%, normal RV function, diastolic dysfunction noted Will get a repeat echo in the morning 11/16/23: Echo showing EF of 40-45%, grade 1 diastolic dysfunction, and mild pulmonary edema Will give additional dose of IV Bumex today Cardiology consulted (4) COPD (chronic obstructive pulmonary disease) with emphysema: Qualifiers: Emphysema type: panlobular Qualified Code(s): J43.1 - Panlobular emphysema Code(s): J43.9 - Emphysema, unspecified Status: Chronic Assessment and Plan: 11/15/2023: Patient uses 3 L nasal cannula at baseline, currently on 4 L nasal cannula due to hypoxia on admission Followed outpatient by Dr. Ziegler See above plan of care 11/16/23: No change to current treatment plan (5) DM (diabetes mellitus) type II uncontrolled, periph vascular disorder: Code(s): E11.51 - Type 2 diabetes mellitus with diabetic peripheral angiopathy without gangrene; E11.65 - Type 2 diabetes mellitus with hyperglycemia Status: Chronic Assessment and Plan: 11/15/2023: Blood glucose ranging 165-184 Accu-Cheks AC and HS Low-dose sliding scale ordered Glimepiride 1 mg tablet on hold Hypoglycemic protocol ordered Diabetic consistent carbohydrate diet ordered Will check hemoglobin A1c in the morning 11/16/23: Continue with current treatment plan Hgb A1c 6.3 (6) Hyperlipidemia: Code(s): E78.5 - Hyperlipidemia, unspecified Status: Chronic Assessment and Plan: 11/15/2023: Continue aspirin, Plavix, Zetia, and pravastatin 11/16/23: No change to current treatment plan (7) Hypertension: Code(s): I10 - Essential (primary) hypertension Status: Chronic Assessment and Plan: 11/15/2023: Blood pressures ranging 111/71 to 123/83 Continue lisinopril 11/16/23: No change to current treatment plan (8) BPH (benign prostatic hyperplasia): Code(s): N40.0 - Benign prostatic hyperplasia without lower urinary tract symptoms Status: Chronic Assessment and Plan: 11/15/2023: Continue Flomax, oxybutynin, and Finasteride 11/16/23: No change to current treatment plan (9) Obesity (BMI 30-39.9): Code(s): E66.9 - Obesity, unspecified Status: Chronic Assessment and Plan: BMI 29.3, 100.8 kg Time Spent With Patient Time with patient: 25 - 35 minutes Subjective Date/time seen: 11/16/23 14:03
[2023-11-16] MEDS: BUMETANIDE INJ 1 MG/4 ML VIAL IV PUSH (15:19)
[2023-11-16 16:28] LABS: Glucose Point of Care 190 mg/dl (65-105)
[2023-11-16] MEDS: TAMSULOSIN HCL 0.4 MG CAPSULE PO (17:00)
[2023-11-16] MEDS: ASPIRIN 81 MG ENTERIC TABLET PO (17:00)
[2023-11-16 20:35] LABS: Glucose Point of Care 172 mg/dl (65-105)
[2023-11-17] VITALS (13 sets, daily range): BP systolic 126–139; BP diastolic 50–74; PULSE 65–115; RESP 16–20; TEMP 36.3–36.8; O2SAT 92–95
[2023-11-17] MEDS: IPRATROPIUM 0.5 MG/ALBUTEROL SULFATE 2.5 MG AMPUL.NEB 3 ML INHALATION ×4 (02:28→20:40)
[2023-11-17 06:34] LABS: Hematocrit 31.9 % (42.0-52.0); Hemoglobin 10.1 g/dL (14.0-18.0); Immature Granulocyte Absolute 0.02 K/mm3 (0.00-0.031); Immature Granulocyte Percent A 0.3 % (0-0.5); Lymphocytes Absolute Auto 0.71 K/mm3 (0.9-3.2); Lymphocytes Percent Auto 11.9 % (18.3-44.2); Mean Corpuscular HGB Conc 31.7 g/dl (32-36); Mean Corpuscular Hemoglobin 27.7 pg (26-34); Mean Corpuscular Volume 87.4 fl (80-100); Monocytes Absolute Auto 0.6 K/mm3 (0.1-0.6); Monocytes Percent Auto 10.6 % (2.6-8.5); Neutrophils Absolute Auto 4.6 K/mm3 (1.3-6.7); Neutrophils Percent Auto 77.2 % (45.5-73.1); Platelet Count Result 273 k/mm3 (150-375); Red Blood Count 3.65 M/mm3 (4.6-6.20); Red Cell Distribution Width 13.8 % (11.5-14.5)
[2023-11-17 06:50] LABS: Alanine Aminotransferase 12 U/L (6-50); Albumin Level 3.8 g/dL (3.5-5.1); Alkaline Phosphatase 66 U/L (38-126); Anion Gap 7 mmol/L (8-16); Aspartate Amino Transferase 27 U/L (17-59); Bilirubin,Total 0.5 mg/dL (0.2-1.3); Blood Urea Nitrogen 29 mg/dL (9-20); Calcium 9.3 mg/dL (8.4-10.2); Carbon Dioxide 32 mmol/L (22-30); Chloride 96 mmol/L (98-107); Estimated CRCL calculation 59 ml/min; Estimated Glomerular Filt Rate > 60; Glucose 152 mg/dL (65-110); Potassium 3.7 mmol/L (3.4-5.0); Sodium 135 mmol/L (137-145)
[2023-11-17 08:21] LABS: Glucose Point of Care 144 mg/dl (65-105)
[2023-11-17] MEDS: PANTOPRAZOLE 40 MG TABLET PO ×2 (08:27→17:09)
[2023-11-17] MEDS: ENOXAPARIN 40 MG/0.4 ML SYRINGE SUB-Q (08:27)
[2023-11-17] MEDS: SERTRALINE HCL 50 MG TABLET PO (08:27)
[2023-11-17] MEDS: SPIRONOLACTONE 25 MG TABLET PO (08:27)
[2023-11-17] MEDS: AZITHROMYCIN 500 MG/NS 250 ML 500 MG/250 ML BAG 250 MG IVPB (08:28)
[2023-11-17] MEDS: cefTRIAXone 2 GM/NS 100 ML 2 GM/100 ML BAG IVPB (08:28)
[2023-11-17] MEDS: BUMETANIDE 1 MG TABLET 2 MG PO (08:28)
[2023-11-17] MEDS: lisinopriL 5 MG TABLET PO ×2 (08:28→14:16)
[2023-11-17] MEDS: methylPREDNISolone SOD SUCC 40 MG VIAL IV PUSH ×2 (08:36→17:09)
[2023-11-17 11:49] LABS: Glucose Point of Care 140 mg/dl (65-105)
--- NOTE | 2023-11-17 12:56 | PM.CNCAR ---
Assessment and Plan Assessment and plan (1) CHF (congestive heart failure): Code(s): I50.9 - Heart failure, unspecified Status: Chronic Assessment and Plan: Patient appears to be euvolemic now. Agree with his home dose of PO Bumex. Continue Spironolactone. On Lisinopril 5mg daily at home. Blood pressures are normal and no documented issues with hypotension, renal function normal as well. Will increase his Lisinopril to 10mg to optimize his heart failure regimen. Not on beta peggy as an outpatient, but may not be able to tolerate a meaningful dose of beta peggy therapy with his lung disease. Will hold off on adding beta peggy for now and defer to Dr. Wick as an outpatient. Patient is scheduled to see Dr. Wick at the beginning of December. (2) Hypertension: Code(s): I10 - Essential (primary) hypertension Status: Chronic Assessment and Plan: Stable. Continue Spironolactone. On Lisinopril 5mg daily at home. Blood pressures are normal and no documented issues with hypotension, renal function normal as well. Will increase his Lisinopril to 10mg to optimize his heart failure regimen. (3) Hyperlipidemia: Code(s): E78.5 - Hyperlipidemia, unspecified Status: Chronic Assessment and Plan: Continue statin (4) Acute and chronic respiratory failure with hypoxia: Code(s): J96.21 - Acute and chronic respiratory failure with hypoxia Status: Acute Assessment and Plan: Seems to be improving now. (5) S/P CABG (coronary artery bypass graft): Code(s): Z95.1 - Presence of aortocoronary bypass graft Status: Acute Assessment and Plan: Stable. Continue ASA, Plavix, statin. (6) PAD (peripheral artery disease): Code(s): I73.9 - Peripheral vascular disease, unspecified Status: Acute Assessment and Plan: Stable. Continue ASA, Plavix, statin. Plan Okay to discharge home from a cardiology standpoint. Patient is scheduled to see Dr. Wick at the beginning of December. History of Present Illness History of Present Illness Consult date/time: 11/17/23 12:56 Requesting physician: Soledad Sparks APRN Consult reason: congestive heart failure Reason For Visit: Respiratory Failure/Pneumonia Narrative: We are consulted for CHF. This is an 82 year old male patient of Dr. Johnson with CAD s/p CABG, ischemic cardiomyopathy, heart failure with mid range LVEF, thoracic aortic aneurysm, peripheral arterial disease, COPD, chronic hypoxic respiratory failure on home oxygen, diabetes, hypertension, hyperlipidemia. Last echocardiogram 08/2022 shows LVEF 49%, mild MR, mild TR. Patient admitted to [facility] on 11/14 for shortness of breath, found to have acute on chronic hypoxic respiratory failure, treated for CAP. Also treated for acute on chronic heart failure with IV diuresis. He is back on his PO Bumex now. Echocardiogram this admission shows LVEF 40-45%, grade 1 diastolic dysfunction, moderate enlargement of LA, moderate MR, mild TR. Patient reports that he is feeling much better now. Review of Systems Review of Systems: All systems reviewed & are unremarkable except as noted in HPI and below (HPI) [facility] Past Medical History Medical History Adult BMI 36.0-36.9 kg/sq m Body mass index (BMI) 35.0-35.9, adult (06/20/18) BPH (benign prostatic hyperplasia) Cardiomyopathy, ischemic CHF (congestive heart failure) COPD (chronic obstructive pulmonary disease) Debility Hyperlipidemia Hypertension NSTEMI (non-ST elevated myocardial infarction) Type 2 diabetes mellitus Surgical History Surgical History H/O hernia repair Hx of CABG S/P percutaneous 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 angioplasty ([facility]) with stent placement Family History Family History Sibling Family history of cardiovascular disease Family
--- NOTE | 2023-11-17 12:56 | P.PNIM_ITS ---
Progress Note: A&P Assessment and Plan (1) Acute and chronic respiratory failure with hypoxia: Code(s): J96.21 - Acute and chronic respiratory failure with hypoxia Status: Acute Assessment and Plan: 11/15/2023: * Patient presented with hypoxia 82% on 3 L which is his baseline * Likely secondary to community-acquired pneumonia, CHF exacerbation * Chest x-ray showing bibasilar airspace opacities consistent with atelectasis versus pneumonia, possible nodule of the right lung base. * Patient was given a DuoNeb, Solu-Medrol 125 mg IV push, Rocephin and azithromycin while in the ED * Continue DuoNebs q.6 hours * Solu-Medrol 40 mg b.i.d. ordered 11/16/23: * Currently on 4L NC * Continue to wean for an O2 saturation of 92% * Continue with duonebs, solumedrol, rocephin and azithromycin * Will give an additional dose of Bumex IV today for diuresis * Echo showing moderately reduced EF of 40-45%, grade 1 diastolic dysfunction, mild pulmonary edema * Cardiology consulted 11/17/2023: * Still on 4 L nasal cannula * Continue to wean O2 for an O2 saturation of 88-92% considering his history of COPD. * Baseline O2 requirement is 3L NC * Cardiology consult * Continue with current treatment plan (2) CAP (community acquired pneumonia): Qualifiers: Laterality: unspecified laterality Qualified Code(s): J18.9 - Pneumonia, unspecified organism Code(s): J18.9 - Pneumonia, unspecified organism Status: Acute Assessment and Plan: * See above plan of care (3) CHF (congestive heart failure): Code(s): I50.9 - Heart failure, unspecified Status: Chronic Assessment and Plan: 11/15/2023: * Continue spironolactone and Bumex * Followed by Dr. Wick * Last echo was on 08/20/2022 was reviewed which shown an EF of 49%, normal RV function, diastolic dysfunction noted * Will get a repeat echo in the morning 11/16/23: * Echo showing EF of 40-45%, grade 1 diastolic dysfunction, and mild pulmonary edema * Will give additional dose of IV Bumex today * Cardiology consulted 11/17/2023: * No change to current treatment plan (4) COPD (chronic obstructive pulmonary disease) with emphysema: Qualifiers: Emphysema type: panlobular Qualified Code(s): J43.1 - Panlobular emphysema Code(s): J43.9 - Emphysema, unspecified Status: Chronic Assessment and Plan: 11/15/2023: * Patient uses 3 L nasal cannula at baseline, currently on 4 L nasal cannula due to hypoxia on admission * Followed outpatient by Dr. Ziegler * See above plan of care 11/16/23: * No change to current treatment plan (5) DM (diabetes mellitus) type II uncontrolled, periph vascular disorder: Code(s): E11.51 - Type 2 diabetes mellitus with diabetic peripheral angiopathy without gangrene; E11.65 - Type 2 diabetes mellitus with hyperglycemia Status: Chronic Assessment and Plan: 11/15/2023: * Blood glucose ranging 165-184 * Accu-Cheks AC and HS * Low-dose sliding scale ordered * Glimepiride 1 mg tablet on hold * Hypoglycemic protocol ordered * Diabetic consistent carbohydrate diet ordered * Will check hemoglobin A1c in the morning 11/16/23: * Continue with current treatment plan * Hgb A1c 6.3 11/17/23: * No change to treatment (6) Hyperlipidemia: Code(s): E78.5 - Hyperlipidemia, unspecified Status: Chronic Assessment and Plan: 11/15/2023: * Continue aspirin, Plavix, Zetia, and pravastatin 11/16/23: * No change to current treatment penelope
--- NOTE | 2023-11-17 12:56 | PM.IMPN ---
Progress Note: A&P Assessment and Plan (1) Acute and chronic respiratory failure with hypoxia: Code(s): J96.21 - Acute and chronic respiratory failure with hypoxia Status: Acute Assessment and Plan: 11/15/2023: Patient presented with hypoxia 82% on 3 L which is his baseline Likely secondary to community-acquired pneumonia, CHF exacerbation Chest x-ray showing bibasilar airspace opacities consistent with atelectasis versus pneumonia, possible nodule of the right lung base. Patient was given a DuoNeb, Solu-Medrol 125 mg IV push, Rocephin and azithromycin while in the ED Continue DuoNebs q.6 hours Solu-Medrol 40 mg b.i.d. ordered 11/16/23: Currently on 4L NC Continue to wean for an O2 saturation of 92% Continue with duonebs, solumedrol, rocephin and azithromycin Will give an additional dose of Bumex IV today for diuresis Echo showing moderately reduced EF of 40-45%, grade 1 diastolic dysfunction, mild pulmonary edema Cardiology consulted 11/17/2023: Still on 4 L nasal cannula Continue to wean O2 for an O2 saturation of 88-92% considering his history of COPD. Baseline O2 requirement is 3L NC Cardiology consult Continue with current treatment plan (2) CAP (community acquired pneumonia): Qualifiers: Laterality: unspecified laterality Qualified Code(s): J18.9 - Pneumonia, unspecified organism Code(s): J18.9 - Pneumonia, unspecified organism Status: Acute Assessment and Plan: See above plan of care (3) CHF (congestive heart failure): Code(s): I50.9 - Heart failure, unspecified Status: Chronic Assessment and Plan: 11/15/2023: Continue spironolactone and Bumex Followed by Dr. Wick Last echo was on 08/20/2022 was reviewed which shown an EF of 49%, normal RV function, diastolic dysfunction noted Will get a repeat echo in the morning 11/16/23: Echo showing EF of 40-45%, grade 1 diastolic dysfunction, and mild pulmonary edema Will give additional dose of IV Bumex today Cardiology consulted 11/17/2023: No change to current treatment plan (4) COPD (chronic obstructive pulmonary disease) with emphysema: Qualifiers: Emphysema type: panlobular Qualified Code(s): J43.1 - Panlobular emphysema Code(s): J43.9 - Emphysema, unspecified Status: Chronic Assessment and Plan: 11/15/2023: Patient uses 3 L nasal cannula at baseline, currently on 4 L nasal cannula due to hypoxia on admission Followed outpatient by Dr. Ziegler See above plan of care 11/16/23: No change to current treatment plan (5) DM (diabetes mellitus) type II uncontrolled, periph vascular disorder: Code(s): E11.51 - Type 2 diabetes mellitus with diabetic peripheral angiopathy without gangrene; E11.65 - Type 2 diabetes mellitus with hyperglycemia Status: Chronic Assessment and Plan: 11/15/2023: Blood glucose ranging 165-184 Accu-Cheks AC and HS Low-dose sliding scale ordered Glimepiride 1 mg tablet on hold Hypoglycemic protocol ordered Diabetic consistent carbohydrate diet ordered Will check hemoglobin A1c in the morning 11/16/23: Continue with current treatment plan Hgb A1c 6.3 11/17/23: No change to treatment (6) Hyperlipidemia: Code(s): E78.5 - Hyperlipidemia, unspecified Status: Chronic Assessment and Plan: 11/15/2023: Continue aspirin, Plavix, Zetia, and pravastatin 11/16/23: No change to current treatment plan (7) Hypertension: Code(s): I10 - Essential (primary) hypertension Status: Chronic Assessment and Plan: 11/15/2023: Blood pressures ranging 111/71 to 123/83 Continue lisinopril 11/16/23: No change to current treatment plan (8) BPH (benign prostatic hyperplasia): Code(s): N40.0 - Benign prostatic hyperplasia without lower urinary tract symptoms Status: Chronic Assessment and Plan: 11/15/2023: Continue Flomax, oxybutynin, and Latasha
[2023-11-17] MEDS: TAMSULOSIN HCL 0.4 MG CAPSULE PO (17:09)
[2023-11-17] MEDS: ASPIRIN 81 MG ENTERIC TABLET PO (17:09)
[2023-11-17 17:11] LABS: Glucose Point of Care 177 mg/dl (65-105)
[2023-11-17 20:35] LABS: Glucose Point of Care 222 mg/dl (65-105)
[2023-11-17] MEDS: PRAVASTATIN SODIUM 20 MG TABLET PO (21:03)
[2023-11-17] MEDS: CLOPIDOGREL BISULFATE 75 MG TABLET PO (21:03)
[2023-11-17] MEDS: INSULIN ASPART (*BKC) 100 UNITS/ML SUB-Q (21:03)
[2023-11-17] MEDS: MELATONIN 5 MG TABLET PO (21:03)
[2023-11-17] MEDS: oxyBUTYnin CHLORIDE XL 5 MG TAB.ER.24 15 MG PO (21:03)
[2023-11-17] MEDS: EZETIMIBE 10 MG TABLET PO (21:03)
--- NOTE | 2023-11-18 04:27 | PCRCNOTE ---
Patient refused his 0200 updraft treatment due not wanting to be awakened if asleep. Patient was sleeping when RT checked on him. Treatment to resume at 0800.
[2023-11-18 06:23] LABS: Basophils Percent Auto 0.2 % (0.2-1.2); Hematocrit 34.1 % (42.0-52.0); Hemoglobin 10.7 g/dL (14.0-18.0); Immature Granulocyte Absolute 0.03 K/mm3 (0.00-0.031); Immature Granulocyte Percent A 0.5 % (0-0.5); Lymphocytes Absolute Auto 0.84 K/mm3 (0.9-3.2); Lymphocytes Percent Auto 13.1 % (18.3-44.2); Mean Corpuscular HGB Conc 31.4 g/dl (32-36); Mean Corpuscular Hemoglobin 27.6 pg (26-34); Mean Corpuscular Volume 87.9 fl (80-100); Mean Platelet Volume 9.1 fl (7.4-10.4); Monocytes Absolute Auto 0.7 K/mm3 (0.1-0.6); Monocytes Percent Auto 10.2 % (2.6-8.5); Neutrophils Absolute Auto 4.9 K/mm3 (1.3-6.7); Platelet Count Result 323 k/mm3 (150-375); Red Blood Count 3.88 M/mm3 (4.6-6.20); Red Cell Distribution Width 13.7 % (11.5-14.5); White Blood Count 6.4 K/mm3 (4.5-10.0)
[2023-11-18 06:46] LABS: Alanine Aminotransferase 16 U/L (6-50); Albumin Level 3.9 g/dL (3.5-5.1); Alkaline Phosphatase 66 U/L (38-126); Anion Gap 8 mmol/L (8-16); Aspartate Amino Transferase 30 U/L (17-59); Bilirubin,Total 0.6 mg/dL (0.2-1.3); Blood Urea Nitrogen 29 mg/dL (9-20); Calcium 9.4 mg/dL (8.4-10.2); Carbon Dioxide 32 mmol/L (22-30); Chloride 95 mmol/L (98-107); Estimated CRCL calculation 59 ml/min; Estimated Glomerular Filt Rate > 60; Glucose 162 mg/dL (65-110); Potassium 3.7 mmol/L (3.4-5.0); Sodium 135 mmol/L (137-145)
[2023-11-18 06:47] VITALS: BP 130/61; PULSE 64; RESP 16; TEMP 36.7; O2SAT 92; O2SAT 95
[2023-11-18 07:32] LABS: Glucose Point of Care 154 mg/dl (65-105)
[2023-11-18 07:57] VITALS: PULSE 68; RESP 18; O2SAT 96
[2023-11-18] MEDS: IPRATROPIUM 0.5 MG/ALBUTEROL SULFATE 2.5 MG AMPUL.NEB 3 ML INHALATION (07:57)
[2023-11-18 08:03] VITALS: PULSE 66; RESP 18
[2023-11-18] MEDS: AZITHROMYCIN 500 MG/NS 250 ML 500 MG/250 ML BAG 250 MG IVPB (08:52)
[2023-11-18] MEDS: BUMETANIDE 1 MG TABLET 2 MG PO (08:53)
[2023-11-18] MEDS: cefTRIAXone 2 GM/NS 100 ML 2 GM/100 ML BAG IVPB (08:53)
[2023-11-18] MEDS: lisinopriL 10 MG TABLET PO (08:54)
[2023-11-18] MEDS: SERTRALINE HCL 50 MG TABLET PO (08:54)
[2023-11-18] MEDS: PANTOPRAZOLE 40 MG TABLET PO (08:54)
[2023-11-18] MEDS: SPIRONOLACTONE 25 MG TABLET PO (08:54)
[2023-11-18 09:02] VITALS: O2SAT 96
[2023-11-18] MEDS: ENOXAPARIN 40 MG/0.4 ML SYRINGE SUB-Q (09:02)
[2023-11-18] MEDS: methylPREDNISolone SOD SUCC 40 MG VIAL IV PUSH (09:02)
--- NOTE | 2023-11-18 12:49 | PM.DS ---
DS: Admitting Diagnosis Discharge Date 11/18/23 Admitting Diagnosis Acute and chronic respiratory failure with hypoxia Community-acquired pneumonia CHF COPD Diabetes mellitus type 2 Hyperlipidemia Hypertension BPH Obesity DS: Discharge Diagnosis Discharge Diagnosis (1) Acute and chronic respiratory failure with hypoxia: Code(s): J96.21 - Acute and chronic respiratory failure with hypoxia Status: Acute (2) CAP (community acquired pneumonia): Qualifiers: Laterality: unspecified laterality Qualified Code(s): J18.9 - Pneumonia, unspecified organism Code(s): J18.9 - Pneumonia, unspecified organism Status: Acute (3) CHF (congestive heart failure): Code(s): I50.9 - Heart failure, unspecified Status: Chronic (4) COPD (chronic obstructive pulmonary disease) with emphysema: Qualifiers: Emphysema type: panlobular Qualified Code(s): J43.1 - Panlobular emphysema Code(s): J43.9 - Emphysema, unspecified Status: Chronic (5) DM (diabetes mellitus) type II uncontrolled, periph vascular disorder: Code(s): E11.51 - Type 2 diabetes mellitus with diabetic peripheral angiopathy without gangrene; E11.65 - Type 2 diabetes mellitus with hyperglycemia Status: Chronic (6) Hyperlipidemia: Code(s): E78.5 - Hyperlipidemia, unspecified Status: Chronic (7) Hypertension: Code(s): I10 - Essential (primary) hypertension Status: Chronic (8) BPH (benign prostatic hyperplasia): Code(s): N40.0 - Benign prostatic hyperplasia without lower urinary tract symptoms Status: Chronic (9) Obesity (BMI 30-39.9): Code(s): E66.9 - Obesity, unspecified Status: Chronic DS: Summary Hospital Course Reason for hospitalization: Acute and chronic respiratory failure with hypoxia Community-acquired pneumonia CHF COPD Diabetes mellitus type 2 Hyperlipidemia Hypertension BPH Obesity Hospital Course: 11/15/23: This is an 82-year-old male with a significant past medical history of ischemic cardiomyopathy, abdominal aortic aneurysm, dementia, CHF, COPD, BPH, hypertension, hyperlipidemia, type 2 diabetic, history of 2 vessel CABG who presented to the hospital with shortness of breath and dyspnea.? Patient normally wears 3 L nasal cannula and upon presentation he was 82% on his 3 L with increased work of breathing. On examination today patient is alert and oriented x3, lying in the bed.? He denies any fever, chills, chest pain, abdominal pain, nausea, vomiting, diarrhea. Workup in the hospital includes chest x-ray which shows bibasilar airspace opacities, possible nodule the right lung base.? Head CT which was negative for any acute intracranial abnormality, age-related changes were noted.? Initial labs revealed hemoglobin of 10.6, hematocrit 34.6, sodium 135, chloride 95, proBNP 302, liver enzymes were normal, troponin 0.012> 0.013.? Respiratory panel was done which was negative for influenza a and B, RSV, and COVID.? ABG shown a normal pH of 7.361, pCO2 of 52.9, PO2 58.2, bicarb 29.3, oxyhemoglobin 87.7 on 4 L nasal cannula.? Patient was given DuoNeb, Rocephin, azithromycin, Solu-Medrol 125 mg IV push while in the ED. 11/16/23: On examination today patient is alert and oriented x3, sitting on the side of the bed, eating lunch. is at the bedside. He is somewhat short of breath while eating. Lungs course today. He denies any new complaints overnight. Labs today show a Hgb 10.1, Na+ 135, Chloride 31, BG ranging 124-154, Hgb A1C 6.3, liver function is normal. We will continue with IV antibiotics and give a dose of IV Bumex today for additional diuresis. Echo showing moderately LV systolic function with an estimated EF of 40-45%, grade 1 diastolic dysfunction, and mild pulmonary hypertension with an arterial systolic pressure of 35mmHg. This is about the same as his previous Echo in 2021. Cardiology consulted.? 11/17/23: Patient denies any new complaints
== END 2023-11-18 11:25 | disposition home health service (06) | DRG 193 ==
LOC: ANHED 14:59 → ANH3MEDSUR 15:29
PROVIDERS: Nurse Practitioner Acute Care; Admitting Provider Internal Medicine; Emergency Provider Student in an Organized Health Care Education/Training Program; PCP Family Medicine; Visit Provider Internal Medicine
DX: J18.9 Pneumonia, unspecified organism (principal); J96.21 Acute and chronic respiratory failure with hypoxia; J44.0 Chronic obstructive pulmonary disease with (acute) lower respiratory infection; J44.1 Chronic obstructive pulmonary disease with (acute) exacerbation; I11.0 Hypertensive heart disease with heart failure; I50.9 Heart failure, unspecified; I25.5 Ischemic cardiomyopathy; I25.10 Atherosclerotic heart disease of native coronary artery without angina pectoris; I71.40 Abdominal aortic aneurysm, without rupture, unspecified; E11.51 Type 2 diabetes mellitus with diabetic peripheral angiopathy without gangrene; E78.5 Hyperlipidemia, unspecified; N40.0 Benign prostatic hyperplasia without lower urinary tract symptoms; F03.90 Unspecified dementia, unspecified severity, without behavioral disturbance, psychotic disturbance, mood disturbance, and anxiety; Z20.822 Contact with and (suspected) exposure to COVID-19; I25.2 Old myocardial infarction; Z79.02 Long term (current) use of antithrombotics/antiplatelets; Z99.81 Dependence on supplemental oxygen; Z87.891 Personal history of nicotine dependence; Z79.82 Long term (current) use of aspirin; Z95.1 Presence of aortocoronary bypass graft; Z95.5 Presence of coronary angioplasty implant and graft
CPT/HCPCS: 36415; 36600; 70450; 71046; 80053; 82805; 82948; 83036; 83880; 84484; 85025; 87040; 87637; 93005; 94640; 96374; 97110; 97116; 97161; 97166; 97530; 97535; 99291; A9270; C8929; J0456; J0696; J1650; J1815; J1939; J2920; J2930; Q9957

== ENCOUNTER 2024-02-22 07:55 | Outpatient (CLI) | payer MEDICARE, SELFPAY ==
[2024-02-22 08:30] VITALS: PULSE 60; O2SAT 95
[2024-02-22 08:35] VITALS: PULSE 66; O2SAT 85
[2024-02-22 08:40] VITALS: PULSE 69; O2SAT 87
[2024-02-22 08:45] VITALS: PULSE 68; O2SAT 87
[2024-02-22 08:50] VITALS: PULSE 65; O2SAT 90
[2024-02-22 09:05] VITALS: PULSE 65; O2SAT 93
--- NOTE | 2024-02-22 09:21 | HOMEO2EVAL ---
Evaluation was performed at [facility] Home Oxygen Evaluation RC: Home Oxygen (O2) Evaluation Start: 02/22/24 09:17 Freq: Status: Active Protocol: RPE Activity Type Activity Date Activity User E-sign Co-sign Detail Recorded Client Recorded Date Recorded By Document 02/22/24 08:30 PKH [email or web address] 02/22/24 09:20 PKH Document 02/22/24 08:35 [email or web address] [email or web address] 02/22/24 09:20 PKH Document 02/22/24 08:40 [email or web address] [email or web address] 02/22/24 09:20 PKH Document 02/22/24 08:45 [email or web address] [email or web address] 02/22/24 09:20 PKH Document 02/22/24 08:50 [email or web address] [email or web address] 02/22/24 09:20 PKH Document 02/22/24 09:05 [email or web address] [email or web address] 02/22/24 09:20 PKH 02/22/24 02/22/24 02/22/24 08:30 08:35 08:40 Home O2 Evaluation [Oxygen] -Test Phase Resting Exercise Exercise -Oxygen Delivery Room Air Room Air Nasal Cannula -Oxygen Flow Rate (L/min) 1 [Pulse Oximetry] -Pulse Oximetry (90-100 %) 95 85 L 87 L [Pulse Rate] -Pulse Rate (60-100 beats/min) 60 66 69 [Charges] -Evaluation Charges O2 Evaluation by Pulmonary 02/22/24 02/22/24 02/22/24 08:45 08:50 09:05 Home O2 Evaluation [Oxygen] -Test Phase Exercise Exercise Resting -Oxygen Delivery Nasal Cannula Nasal Cannula Room Air -Oxygen Flow Rate (L/min) 2 3 [Pulse Oximetry] -Pulse Oximetry (90-100 %) 87 L 90 93 [Pulse Rate] -Pulse Rate (60-100 beats/min) 68 65 65 [Charges] -Evaluation Charges
== END 2024-02-22 07:56 | disposition home or self-care (01) ==
LOC: ANHPFT 07:56
PROVIDERS: PCP Family Medicine; Visit Provider Physician Assistant
DX: J44.9 Chronic obstructive pulmonary disease, unspecified (principal); J96.11 Chronic respiratory failure with hypoxia
CPT/HCPCS: 94618

== ENCOUNTER 2024-03-20 07:29 | Outpatient (CLI) | payer MEDICARE, SELFPAY ==
--- NOTE | ~2024-03-20 | CT_ITS ---
CT Scan of the Chest without Contrast: Clinical Indication: Pulmonary nodule Technique: Contiguous sections were acquired throughout the chest without intravenous contrast. Dose reduction technique was used on this scan by utilizing automated exposure control and iterative recon struction technique. The dose-length product (DLP) was 405.08 mGy-cm. COMPARISON: 05/31/2022 Findings: There is no evidence of any significant mediastinal, hilar or axillary lymphadenopathy. Ascending aor ta measures 4.6 cm in diameter. There are atherosclerotic calcifications of the aorta. There are exte nsive coronary artery calcifications.. There is no evidence of pleural or pericardial effusion. There is left basilar atelectatic change. Probable mild emphysema. No suspicious pulmonary nodule. Images through the upper abdomen reveal moderate hiatal hernia with fundoplication device in place. I nfrarenal abdominal aorta measures up to 4.6 cm in diameter, with extensive atherosclerotic calcifica tions. Chronic T4, T7, and L1 compression fracture deformities are noted. Impression: No suspicious pulmonary nodule. Mild emphysema. 4.6 cm ascending aortic aneurysm. 4.6 cm infrarenal abdominal aortic aneurysm. Chronic compression fractures, as above. Reviewed, dictated and finalized at location . Impression: No suspicious pulmonary nodule. Mild emphysema. 4.6 cm ascending aortic aneurysm. 4.6 cm infrarenal abdominal aortic aneurysm. Chronic compression fractures, as above.
== END 2024-03-20 07:30 | disposition home or self-care (01) ==
LOC: ANHIMG 07:30
PROVIDERS: PCP Family Medicine; Visit Provider Nurse Practitioner Family
DX: R91.1 Solitary pulmonary nodule (principal); Z77.090 Contact with and (suspected) exposure to asbestos; I71.40 Abdominal aortic aneurysm, without rupture, unspecified
CPT/HCPCS: 71250

== ENCOUNTER 2024-08-14 10:43 | Outpatient (CLI) | payer MEDICARE, SELFPAY ==
[2024-08-14 11:48] LABS: Hemoglobin A1C 5.8 % (<5.7)
[2024-08-14 11:49] LABS: Alanine Aminotransferase 9 U/L (6-50); Albumin Level 4.2 g/dL (3.5-5.1); Alkaline Phosphatase 64 U/L (38-126); Anion Gap 4 mmol/L (4-12); Aspartate Amino Transferase 20 U/L (17-59); Bilirubin,Total 0.6 mg/dL (0.2-1.3); Blood Urea Nitrogen 26 mg/dL (9-20); Calcium 8.8 mg/dL (8.4-10.2); Carbon Dioxide 30 mmol/L (22-30); Chloride 101 mmol/L (98-107); Cholesterol 135 mg/dL (0-200); Estimated Glomerular Filt Rate 39; Glucose 88 mg/dL (65-110); HDL Direct 68 mg/dL; Potassium 4.6 mmol/L (3.4-5.0); Sodium 135 mmol/L (137-145); Triglycerides 88 mg/dL (<150)
[2024-08-14 12:00] LABS: LDL Cholesterol Direct 45 mg/dL
[2024-08-14 12:00] LABS: Creatinine Urine 83.3 mg/dL
[2024-08-14 12:04] LABS: MALB Creatinine Ratio 7.9 mg/g (0-30); Microalbumin Urine Random 6.6 mg/L (0-16.7)
[2024-08-14 12:17] LABS: Vitamin D 25 Hydroxy 24.2 ng/mL
[2024-08-14 12:19] LABS: Prostate Specific Antigen 0.2 ng/mL (< OR = 4.0)
== END 2024-08-14 10:44 | disposition home or self-care (01) ==
PROVIDERS: PCP Emergency Medicine; Visit Provider Emergency Medicine
DX: E78.5 Hyperlipidemia, unspecified (principal); E11.9 Type 2 diabetes mellitus without complications; E55.9 Vitamin D deficiency, unspecified; Z12.5 Encounter for screening for malignant neoplasm of prostate
CPT/HCPCS: 36415; 80053; 80061; 82043; 82306; 83036; 84153; G0103

== ENCOUNTER 2025-01-10 11:32 | Outpatient (CLI) | payer MEDICARE, SELFPAY ==
--- NOTE | ~2025-01-10 | XR_ITS ---
Clinical Indication: Chronic bronchitis AP and lateral views of the chest: Comparison: 11/15/2023 Findings: The lungs are clear, without evidence of focal consolidation or pleural effusion. Cardiome diastinal silhouette is stable. Compression fracture of probably T7. Impression: No acute abnormality. Reviewed, dictated and finalized at [facility]. Impression: No acute abnormality.
[2025-01-10 12:03] LABS: Hematocrit 31.3 % (42.0-52.0); Hemoglobin 9.4 g/dL (14.0-18.0); Mean Corpuscular Hemoglobin 25.7 pg (26-34); Mean Corpuscular Volume 85.5 fl (80-100); Platelet Count Result 272 k/mm3 (150-375); Red Blood Count 3.66 M/mm3 (4.6-6.20); Red Cell Distribution Width 13.3 % (11.5-14.5)
[2025-01-10 12:27] LABS: Alanine Aminotransferase 12 U/L (6-50); Albumin Level 4.3 g/dL (3.5-5.1); Alkaline Phosphatase 73 U/L (38-126); Anion Gap 9 mmol/L (4-12); Aspartate Amino Transferase 21 U/L (17-59); Bilirubin,Total 0.5 mg/dL (0.2-1.3); Blood Urea Nitrogen 20 mg/dL (9-20); Calcium 8.9 mg/dL (8.4-10.2); Carbon Dioxide 33 mmol/L (22-30); Chloride 96 mmol/L (98-107); Estimated Glomerular Filt Rate 59; Glucose 94 mg/dL (65-110); Potassium 4.1 mmol/L (3.4-5.0); Sodium 138 mmol/L (137-145)
[2025-01-10 12:30] LABS: NT Pro B Type Natriuretic Pept 291 pg/mL (19.9-100)
== END 2025-01-10 11:33 | disposition home or self-care (01) ==
LOC: ANHLAB 11:33
PROVIDERS: PCP Emergency Medicine; Visit Provider Nurse Practitioner Family
DX: J42 Unspecified chronic bronchitis (principal); I50.9 Heart failure, unspecified; R06.2 Wheezing; R06.02 Shortness of breath; R60.0 Localized edema
CPT/HCPCS: 36415; 71046; 80053; 83880; 85027

== ENCOUNTER 2025-04-10 00:35 | Day surgery (SDC) | payer MEDICARE, SELFPAY ==
[2025-03-25 08:55] VITALS: BMI 33.0
--- NOTE | 2025-04-02 14:22 | PC.NURSE ---
Spoke with _Sherry(spouse)__ regarding medication _plavix. _Sherry_verbalizes understanding that the last dose is to be taken on _04/05/25_ and the Endoscopist will instruct them when to restart after the procedure.
--- OUTSIDE RECORDS SUMMARY | 2025-04-10 00:38 | XMS_ITS | Encounter Summary ---
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 Name Role Phone Charlie Vinson MD Primary Care Provider U Servando Torres DO Primary Care Provider [phone] Frank Valentino MD Primary Care Provider + [phone] Encounter Details Date Type Department Care Team (Late st Contact Info) Description 01/01/2016 Abstract [facility] CONVERSION [address] [place], [place] [id number] , Binta Skelton MD Social History Tobacco Use Types Packs/Day Years Used Date Smoking Tobacco: Never Assessed Sex and Gender Information Value Date Recorded Sex Assigned at Not on file Legal Sex Male 8:10 PM CDT Gender Identity Not on file Sexual Orientation Not on file documented as of this encounter Plan of Treatment Not on file documented as of this encounter Visit Diagnoses Not on filedocumented in this encounter Care Teams Flame Hardening Machine Operator Relationship Specialty Start Date End Date Charlie Vinson MD PCP - General INTERNAL MEDICINE 08/28/18 03/18/22 Servando Dumas DO PCP - General FAMILY PRACTICE 03/19/22 12/20/24 Frank Valentino MD [address] [place] [address] PCP - General INTERNAL MEDICINE 12/21/24 documented as of this encounter
--- OUTSIDE RECORDS SUMMARY | 2025-04-10 00:38 | XMS_ITS | Clinical Summary ---
Author Organization [facility] Address [address] [place] [address] Care Team Providers Care Fisher Lobster Name Role Phone Frank Valentino MD Primary Care Provider [phone] Allergies Active Allergy Reactions Criticality Noted Date Comments Atorvastatin Myalgias Medium Cyclobenzaprine Itching Medium Levofloxacin Itching 09/13/2014 Metronidazole Unknown 03/07/2017 Oxycodone-Acetaminophen Hallucinations 11/30/19 18 Penicillins Hives 12/21/2012 Pravastatin Myalgias Medium Rosuvastatin Myalgias Medium Tramadol Hallucinations 09/11/2013 Medications tamsulosin 0.4 MG Cap Take 1 capsule by mouth daily. Active spironolactone 25 MG tablet Take 1 tablet by mouth daily. 6 Active pravastatin 20 MG tablet Take 1 tablet by mouth. 8 Active lisinopril 20 MG tablet Take 1 tablet by mouth daily. 6 Active SOFTCLIX LANCETS Misc by Other route daily. 6 Active furosemide 20 MG tablet Take 40 mg by mouth daily. Active finasteride 5 MG tablet Take 1 tablet by mouth daily. Active ezetimibe 10 MG tablet Take 1 tablet by mouth daily. 7 Active Docosahexaenoic Acid 450 MG Cap Take 1 capsule by mouth 2 (two) times a day. Active clopidogrel 75 MG tablet Take 1 tablet by mouth daily. Active budesonide 0.5 MG/2ML nebulizer solution Inhale 0.5 mg into the lungs 2 (two) times daily. 7 Active Blood Glucose Monitoring Suppl (ACCU-CHEK DOMENICO) Device 6 Active aspirin EC (ASPIRIN EC) 81 MG tablet Take 1 tablet by mouth daily. Active albuterol (2.5 MG/3ML) 0.083% nebulizer solution Active ipratropium-alb uterol 0.5-2.5 (3) MG/3ML Solution Inhale into the lungs 3 (three) times a day. Active Lactobacillus (CVS PROBIOTIC ACIDOPHILUS) 10 MG Cap 5 mg daily. 6 Active diphenhydrAMINE -APAP 25-500 MG Tab tablet take 2 tablet by oral route every day at bedtime 7 Active OXYGENIndicatio ns:3 L at qhs and 4 L with exertion Active pantoprazole EC 40 MG tablet Take 40 mg by mouth 2 (two) times daily. Active albuterol 0.63 MG/3ML nebulizer solution use twice daily 3 Active Cholecalciferol (VITAMIN D-3 OR) take 1 by oral route every day 2,000u 2 Active GLIMEPIRIDE 1 MG tabletIndicatio ns:Type 2 diabetes mellitus ([facility]) TAKE 1 TABLET BY MOUTH DAILY 90 tablet 9 Active ipratropium 0.02 % nebulizer solution USE 1 VIAL IN NEBULIZER EVERY 6 HOURS 11 9 Active Glucose Blood (ACCU-CHEK DOMENICO PLUS) test stripIndication s:Type 2 diabetes mellitus with complication, without long-term current use of insulin ([facility]) Use to check blood sugar once dailly 100 each 9 Active acetaminophen-c odeine 300-30 MG tabletIndicatio ns:Acute Pain < 3 Day Supply Take 1 tablet by mouth every 6 (six) hours as needed for Pain. Indications: Acute Pain < 3 Day Supply 12 tablet 2 Active Active Problems Problem Noted Date Diagnosed Date Closed displaced fracture of base of fifth metacarpal bone of left hand with routine healing 03/25/2022 Overview (03/25/2022): 03/19/2022 Assessment & Plan (04/25/2022 5:09 PM CDT): We discussed the risks, benefits and alternatives. Discontinue the splint. Range of motion as tolerated. Activity as tolerated. Follow-up as needed. Assessment & Plan (04/05/2022 9:58 PM CDT): Maintain wrist splint. Follow-up in 2 weeks for repeat evaluation and x-ray. Anticipate out of the splint at that time. Assessment & Plan (03/25/2022 9:49 AM CDT): Patient is right-hand dominant. Poor surgical candidate. Mildly displaced fifth metacarpal fracture. Old triquetral fracture. Placed into a ulnar gutter splint. Follow-up in 2 weeks for repeat evaluation and x-ray Fall 03/25/2022 Assessment & Plan (03/25/2022 9:51 AM CDT): As cause of injury on 03/19/2022 Weakness 03/12/2019 Shortness of breath 10/30/2018 Thoracic aortic aneurysm without rupture 018 Aortic aneurysm 06/01/2017 BMI 36.0-36.9,adult 04/05/2017 Overview (08/28/2018): Last Assessment & Plan: Gaining weight Obstructive sleep apnea syndrome 10/05/2016 Overview (08/28/2018): Overview: JOSE A (obstructive sleep apnea) Chronic combined systolic an d diastolic heart failure ([facility]) 07/15/2016 Overview (08/28/2018): Overview: Chronic combined systolic and diastolic CHF (congestive heart failure) Last Assessment & Plan: EF runs 25-40%, improved by most recent Echo to 47% Oct 2016 after CABG. CHF has improved. CHF (congestive heart failure) ([facility]) 07/14/2016 S/P CABG (coronary artery bypass graft) 07/02/20 16 Hiatal hernia 07/01/2016 Depression 06/29/2016 Coronary stent thrombosis 02/19/2016 Overview (08/28/2018): Overview: Coronary stent thrombosis, subsequent encounter Statin intolerance 12/01/2015 Overview (08/28/2018): Overview: Statin intolerance Chronic low back pain 09/13/2014 Anemia 04/29/2014 Chronic ischemic heart disease 12/10/2013 Overview (08/28/2018): Overview: CHR ISCHEMIC HRT DIS NOS Last Assessment & Plan: Improving. Unknown and unspecified causes of morbidity 11/12 Overview (08/28/2018): Overview: STATUS-POST PTCA Diabetic peripheral neuropathy ([facility]) 07/09/2013 Anxiety 02/07/2013 Atherosclerosis of coronary artery 12/22/2012 Hyperlipidemia 12/22/2012 Hypertension 12/22/2012 Type 2 diabetes mellitus ([facility]) 12/22 Alzheimer's disease 12/21/2012 Chronic obstructive pulmonary disease ([facility]) 12/21/2012 Resolved Problems Problem Noted Date Diagnosed Date Resolved Date Acute non-ST elevation myoca rdial infarction (NSTEMI) ([facility]) 04/26/2016 03/12/2019 Overview (08/28/2018): Overview: Non-ST elevation (NSTEMI) myocardial infarction Internal hemorrhoids 10/01/2014 018 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 Overview (08/28/2018): Overview: Old ME (myocardial infarction) Immunizations Immunization Administration Dates Next Due Fluarix 06/16/2015 Fluzone High Dose - >Age 65 (Prefilled Syringe) 06/05/2018,06/06/2017 Fluzone Intradermal Quad (IIV4) 09/12/2015 Influenza (Generic) 06/16/2015,06/21/2013 Influenza Adult (Generic) 06/05/2018,06/06/2017 Pneumococcal(Pcv 7)Aka Prevnar 7 09/12/2011 Tdap (Boostrix) 03/19/2022 Family History Medical History Relation Comments Cancer Father Diabetes Father Heart Disease Father CHF Cancer Mother Diabetes Mother Heart Disease Mother CHF Relation Status Comments Father Mother Social History Tobacco Use Types Packs/Day Years Used Date Smoking Tobacco: Former Cigarettes 1.5 40 1 973 - 2013 Smokeless Tobacco: Never Tobacco Cessation:Counseling Given: No Comments:na Alcohol Use Standard Drinks/Week Comments No 0 (1 standard drink = 0.6 oz pur e alcohol) AUDIT-C Answer Date Recorded Frequency of Alcohol Consumption Never 08/25/2018 Average Number of Drinks Not on file 018 Frequency of Binge Drinking Not on file 08/12 PHQ-2 Answer Date Recorded PHQ-2 Score - If the patient scores above 3, please move on to questions 3-9 0 03/23/2022 Education Answer Date Recorded What is the highest level of school you have completed or the highest degree you have received? 12th grade 08/28/2018 Sex and Gender Information Value Date Recorded Sex Assigned at Not on file Legal Sex Male 8:10 PM CDT Gender Identity Not on file Sexual Orientation Not on file Last Filed Vital Signs Vital Sign Reading Time Taken Comments Blood Pressure 94/56 12/14/2023 11:35 AM CDT Pulse 68 12/14/2023 11:35 AM CDT Temperature 36.2 C (97.2 F) 12/14/2023 11:35 AM CDT Respiratory Rate 22 12/14/2023 11:35 AM CDT Oxygen Saturation 99% 12/14/2023 11:35 AM CDT Inhaled Oxygen Concentration - - Weight 103.9 kg (229 lb) 12/14/2023 10:19 AM CDT Height 185.4 cm (6' 1) 12/14/2023 10:19 AM CDT Body Mass Index 30.21 12/14/2023 10:19 AM CDT Plan of Treatment Health Maintenance Due Date Last Done Comments Diabetes: Retinopathy Eye Exam 1960 Pneumococcal Vaccine: 50+ Years (1 of 2 - PCV) 1961 Zoster Vaccines (1 of 2) 1992 Annual Medicare Wellness Visit 12/25/2007 RSV Immunization or 60+ Years (1 - 1-dose 75+ series) 2017 COVID-19 Vaccine ( season) 2024 Hemoglobin A1C 06/22/2025 12/21/2024, 03/13, 12/15/2018, Additional history exists Kidney Health Evaluation 12/21/2025 12/21/2024 Lipid Panel 12/21/2025 12/21/2024 DTaP, Tdap and Td Vaccines (2 - Td or Tdap) 03/19/2032 03/19/2022 Meningococcal B Vaccine Aged Out No l onger eligible based on patient's age to complete this topic Meningococcal Vaccine Aged Out No chelly chantal eligible based on patient's age to complete this topic RSV Immunizations Under 20 Months Aged Out No longer eligible based on patient's age to complete this topic Procedures Procedure Name Priority Date/Time Associated Diagnosis Comments LIPID PANEL Routine 12/21/2024 8:40 AM CDT Hyperlipidemia Diabetes mellitus without complication ([facility]) Vitamin D deficiency HEMOGLOBIN, GLYCOSYLATED Routine 12/21/2024 8:40 AM CDT Hyperlipidemia Diabetes mellitus without complication ([facility]) Vitamin D deficiency from Last 3 Months or Most Recently Relevant to Health Maintenance Results * (ABNORMAL) HEMOGLOBIN, GLYCOSYLATED (12/21/2024 8:40 AM CDT) HGB A1C 5.9(H) <5.7 % 12/21/2024 9:18 AM CDT [facility] Comment: INCREASED RISK OF DIABETES <5.7% NON-DIABETES 5.7-6.4% INCREASED RISK FOR FUTURE DIABETES > OR = 6.5 CONSISTENT WITH DIABETES STANDARDS OF MEDICAL CARE IN DIABETES-2010 DIABETES CARE, 33(SUPP 1): S1-S61,2010 ESTIMATED AVG GLUCOSE 123 mg/dL 12/21/2024 9:18 AM CDT [facility] 12/21/2024 8:40 AM CDT us Frank Valentino MD LABORATORY Final Result [facility] [address] [place] [address], [place] [phone] * LIPID PANEL (12/21/2024 8:40 AM CDT) CHOLESTEROL 130 <200.0 MG/DL 12/21/2024 9:18 AM CDT [facility] TRIGLYCERIDES 75 <150 MG/DL 12/21/2024 9:18 AM CDT [facility] HDL 65 >40.0 MG/DL 12/21/2024 9:18 AM CDT [facility] LDL (CALCULATED) 50 <100 MG/DL 12/22/19 9:18 AM CDT [facility] NON HDL CHOLESTEROL 65 <130 MG/DL 12/21 9:18 AM CDT [facility] CHOL/HDL RATIO 2.0 0.0 - 4.5 12/21/2024 9:18 AM T [facility] VLDL CALCULATION 15 5 - 55 MG/DL 12/21/2024 9:18 AM T [facility] LIPID INTERPRETATION 12/21/2024 9:18 AM T [facility] Comment: [facility] CON[facility]ENS[facility] REPORT RECOMMENDATIONS: ADULT CHILD LOW RISK: CHOLESTEROL <200 <170 TRIGLYCERIDE <150 --- HDL >=60 --- LDL <100 <110 BORDERLINE: CHOLESTEROL 200-239 170-199 TRIGLYCERIDE 150-199 --- HDL 40-59 --- LDL 100-159 110-129 HIGH RISK: CHOLESTEROL >=240 >=200 TRIGLYCERIDE >=200 --- HDL <40 --- LDL >=160 >=130 12/21/2024 8:40 AM CDT Frank Valentino MD LABORATORY Final Result [facility] [address] [place] [address], [place] [phone] from Last 3 Months or Most Recently Relevant to Health Maintenance Insurance [employer] Advance Directives Documents on File Type Date Recorded 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 Advance Directives and Living Will 12/07/2018 12:00 AM LIVING WILL Advance Directives and Living Will 12/07/2018 12:00 AM POWER OF CAREER CONSULTANT FO R HEALTH CARE Advance Directives and Living Will 11/02/2018 12:00 AM LIVING WILL Advance Directives and Living Will 11/02/2018 12:00 AM POWER OF CAREER CONSULTANT FO R HEALTH CARE Advance Directives and Living Will 03/06/2018 12:00 AM LIVING WILL Advance Directives and Living Will 03/06/2018 12:00 AM POWER OF CAREER CONSULTANT FO R HEALTH CARE Advance Directives and Living Will 03/06/2018 12:00 AM LIVING WILL Advance Directives and Living Will 03/06/2018 12:00 AM POWER OF CAREER CONSULTANT FO R HEALTH CARE Advance Directives and Living Will 11/29/2017 12:00 AM LIVING WILL Advance Directives and Living Will 11/29/2017 12:00 AM POWER OF CAREER CONSULTANT FO R HEALTH CARE Advance Directives and Living Will 11/29/2017 12:00 AM LIVING WILL Advance Directives and Living Will 11/29/2017 12:00 AM POWER OF CAREER CONSULTANT FO R HEALTH CARE Advance Directives and Living Will 11/02/2017 12:00 AM LIVING WILL Advance Directives and Living Will 11/02/2017 12:00 AM POWER OF CAREER CONSULTANT FO R HEALTH CARE Advance Directives and Living Will 11/02/2017 12:00 AM LIVING WILL Advance Directives and Living Will 11/02/2017 12:00 AM POWER OF CAREER CONSULTANT FO R HEALTH CARE Advance Directives and Living Will 10/14/2017 12:00 AM LIVING WILL Advance Directives and Living Will 10/14/2017 12:00 AM POWER OF CAREER CONSULTANT FO R HEALTH CARE Advance Directives and Living Will 10/14/2017 12:00 AM LIVING WILL Advance Directives and Living Will 10/14/2017 12:00 AM POWER OF CAREER CONSULTANT FO R HEALTH CARE Advance Directives and Living Will 05/24/2017 12:00 AM LIVING WILL Advance Directives and Living Will 05/24/2017 12:00 AM POWER OF CAREER CONSULTANT FO R HEALTH CARE Advance Directives and Living Will 05/24/2017 12:00 AM LIVING WILL Advance Directives and Living Will 05/24/2017 12:00 AM POWER OF CAREER CONSULTANT FO R HEALTH CARE Advance Directives and Living Will 03/29/2017 12:00 AM LIVING WILL Advance Directives and Living Will 03/29/2017 12:00 AM POWER OF CAREER CONSULTANT FO R HEALTH CARE Advance Directives and Living Will 03/29/2017 12:00 AM LIVING WILL Advance Directives and Living Will 03/29/2017 12:00 AM POWER OF CAREER CONSULTANT FO R HEALTH CARE Advance Directives and Living Will 03/11/2017 12:00 AM LIVING WILL Advance Directives and Living Will 03/11/2017 12:00 AM POWER OF CAREER CONSULTANT FO R HEALTH CARE Advance Directives and Living Will 03/11/2017 12:00 AM LIVING WILL Advance Directives and Living Will 03/11/2017 12:00 AM POWER OF CAREER CONSULTANT FO R HEALTH CARE Advance Directives and Living Will 09/09/2016 12:00 AM LIVING WILL Advance Directives and Living Will 09/09/2016 12:00 AM POWER OF CAREER CONSULTANT FOR HEALTH CARE Advance Directives and Living Will 09/09/2016 12:00 AM LIVING WILL Advance Directives and Living Will 09/09/2016 12:00 AM POWER OF CAREER CONSULTANT FOR HEALTH CARE Advance Directives and Living Will 07/06/2016 12:00 AM LIVING WILL Advance Directives and Living Will 07/06/2016 12:00 AM POWER OF CAREER CONSULTANT FOR HEALTH CARE Advance Directives and Living Will 07/06/2016 12:00 AM LIVING WILL Advance Directives and Living Will 07/06/2016 12:00 AM POWER OF CAREER CONSULTANT FOR HEALTH CARE Advance Directives and Living Will 07/05/2016 12:00 AM LIVING WILL Advance Directives and Living Will 07/05/2016 12:00 AM POWER OF CAREER CONSULTANT FOR HEALTH CARE Advance Directives and Living Will 07/05/2016 12:00 AM LIVING WILL Advance Directives and Living Will 07/05/2016 12:00 AM POWER OF CAREER CONSULTANT FOR HEALTH CARE Advance Directives and Living Will 07/02/2016 12:00 AM LIVING WILL Advance Directives and Living Will 07/02/2016 12:00 AM POWER OF CAREER CONSULTANT FOR HEALTH CARE Advance Directives and Living Will 07/02/2016 12:00 AM LIVING WILL Advance Directives and Living Will 07/02/2016 12:00 AM POWER OF CAREER CONSULTANT FOR HEALTH CARE Advance Directives and Living Will 07/01/2016 12:00 AM LIVING WILL Advance Directives and Living Will 07/01/2016 12:00 AM POWER OF CAREER CONSULTANT FOR HEALTH CARE Advance Directives and Living Will 07/01/2016 12:00 AM LIVING WILL Advance Directives and Living Will 07/01/2016 12:00 AM POWER OF CAREER CONSULTANT FOR HEALTH CARE Advance Directives and Living Will 06/25/2016 12:00 AM LIVING WILL Advance Directives and Living Will 06/25/2016 12:00 AM POWER OF CAREER CONSULTANT FOR HEALTH CARE Advance Directives and Living Will 06/25/2016 12:00 AM LIVING WILL Advance Directives and Living Will 06/25/2016 12:00 AM POWER OF CAREER CONSULTANT FOR HEALTH CARE Advance Directives and Living Will 06/25/2016 12:00 AM LIVING WILL Advance Directives and Living Will 06/25/2016 12:00 AM POWER OF CAREER CONSULTANT FOR HEALTH CARE Advance Directives and Living Will 06/25/2016 12:00 AM LIVING WILL Advance Directives and Living Will 06/25/2016 12:00 AM POWER OF CAREER CONSULTANT FOR HEALTH CARE Advance Directives and Living Will 06/25/2016 12:00 AM LIVING WILL Advance Directives and Living Will 06/25/2016 12:00 AM POWER OF CAREER CONSULTANT FOR HEALTH CARE Advance Directives and Living Will 06/25/2016 12:00 AM LIVING WILL Advance Directives and Living Will 06/25/2016 12:00 AM POWER OF CAREER CONSULTANT FOR HEALTH CARE Advance Directives and Living Will 05/30/2016 12:00 AM LIVING WILL Advance Directives and Living Will 05/30/2016 12:00 AM POWER OF CAREER CONSULTANT FO R HEALTH CARE Advance Directives and Living Will 05/30/2016 12:00 AM LIVING WILL Advance Directives and Living Will 05/30/2016 12:00 AM POWER OF CAREER CONSULTANT FO R HEALTH CARE Advance Directives and Living Will 05/25/2016 12:00 AM LIVING WILL Advance Directives and Living Will 05/25/2016 12:00 AM POWER OF CAREER CONSULTANT FO R HEALTH CARE Advance Directives and Living Will 05/25/2016 12:00 AM LIVING WILL Advance Directives and Living Will 05/25/2016 12:00 AM POWER OF CAREER CONSULTANT FO R HEALTH CARE Advance Directives and Living Will 02/16/2016 12:00 AM LIVING WILL Advance Directives and Living Will 02/16/2016 12:00 AM POWER OF CAREER CONSULTANT FO R HEALTH CARE Advance Directives and Living Will 02/16/2016 12:00 AM LIVING WILL Advance Directives and Living Will 02/16/2016 12:00 AM POWER OF CAREER CONSULTANT FO R HEALTH CARE Advance Directives and Living Will 01/01/2016 12:00 AM LIVING WILL Advance Directives and Living Will 01/01/2016 12:00 AM POWER OF CAREER CONSULTANT FO R HEALTH CARE Advance Directives and Living Will 01/01/2016 12:00 AM LIVING WILL Advance Directives and Living Will 01/01/2016 12:00 AM POWER OF CAREER CONSULTANT FO R HEALTH CARE Advance Directives and Living Will 07/30/2015 12:00 AM LIVING WILL Advance Directives and Living Will 07/30/2015 12:00 AM POWER OF CAREER CONSULTANT FOR HEALTH CARE Advance Directives and Living Will 07/30/2015 12:00 AM LIVING WILL Advance Directives and Living Will 07/30/2015 12:00 AM POWER OF CAREER CONSULTANT FOR HEALTH CARE Advance Directives and Living Will 06/19/2014 12:00 AM LIVING WILL Advance Directives and Living Will 06/19/2014 12:00 AM POWER OF CAREER CONSULTANT FO R HEALTH CARE Advance Directives and Living Will 06/19/2014 12:00 AM LIVING WILL Advance Directives and Living Will 06/19/2014 12:00 AM POWER OF CAREER CONSULTANT FO R HEALTH CARE Advance Directives and Living Will 06/19/2014 12:00 AM LIVING WILL Advance Directives and Living Will 06/19/2014 12:00 AM POWER OF CAREER CONSULTANT FO R HEALTH CARE Advance Directives and Living Will 06/19/2014 12:00 AM LIVING WILL Advance Directives and Living Will 06/19/2014 12:00 AM POWER OF CAREER CONSULTANT FO R HEALTH CARE Advance Directives and Living Will 06/13/2014 12:00 AM LIVING WILL Advance Directives and Living Will 06/13/2014 12:00 AM POWER OF CAREER CONSULTANT FO R HEALTH CARE Advance Directives and Living Will 06/13/2014 12:00 AM LIVING WILL Advance Directives and Living Will 06/13/2014 12:00 AM POWER OF CAREER CONSULTANT FO R HEALTH CARE Advance Directives and Living Will 05/24/2014 12:00 AM LIVING WILL Advance Directives and Living Will 05/24/2014 12:00 AM POWER OF CAREER CONSULTANT FO R HEALTH CARE Advance Directives and Living Will 05/24/2014 12:00 AM LIVING WILL Advance Directives and Living Will 05/24/2014 12:00 AM POWER OF CAREER CONSULTANT FO R HEALTH CARE Advance Directives and Living Will 04/19/2014 12:00 AM LIVING WILL Advance Directives and Living Will 04/19/2014 12:00 AM POWER OF CAREER CONSULTANT FO R HEALTH CARE Advance Directives and Living Will 04/19/2014 12:00 AM LIVING WILL Advance Directives and Living Will 04/19/2014 12:00 AM POWER OF CAREER CONSULTANT FO R HEALTH CARE Advance Directives and Living Will 04/19/2014 12:00 AM LIVING WILL Advance Directives and Living Will 04/19/2014 12:00 AM POWER OF CAREER CONSULTANT FO R HEALTH CARE Advance Directives and Living Will 04/19/2014 12:00 AM LIVING WILL Advance Directives and Living Will 04/19/2014 12:00 AM POWER OF CAREER CONSULTANT FO R HEALTH CARE Advance Directives and Living Will 04/12/2014 12:00 AM LIVING WILL Advance Directives and Living Will 04/12/2014 12:00 AM POWER OF CAREER CONSULTANT FO R HEALTH CARE Advance Directives and Living Will 04/12/2014 12:00 AM LIVING WILL Advance Directives and Living Will 04/12/2014 12:00 AM POWER OF CAREER CONSULTANT FO R HEALTH CARE Advance Directives and Living Will 03/26/2014 12:00 AM LIVING WILL Advance Directives and Living Will 03/26/2014 12:00 AM POWER OF CAREER CONSULTANT FO R HEALTH CARE Advance Directives and Living Will 03/26/2014 12:00 AM LIVING WILL Advance Directives and Living Will 03/26/2014 12:00 AM POWER OF CAREER CONSULTANT FO R HEALTH CARE Advance Directives and Living Will 03/19/2014 12:00 AM LIVING WILL Advance Directives and Living Will 03/19/2014 12:00 AM POWER OF CAREER CONSULTANT FO R HEALTH CARE Advance Directives and Living Will 03/19/2014 12:00 AM LIVING WILL Advance Directives and Living Will 03/19/2014 12:00 AM POWER OF CAREER CONSULTANT FO R HEALTH CARE Advance Directives and Living Will 03/02/2014 12:00 AM LIVING WILL Advance Directives and Living Will 03/02/2014 12:00 AM POWER OF CAREER CONSULTANT FO R HEALTH CARE Advance Directives and Living Will 03/02/2014 12:00 AM LIVING WILL Advance Directives and Living Will 03/02/2014 12:00 AM POWER OF CAREER CONSULTANT FO R HEALTH CARE DNR (Do Not Resuscitate) Documentation 03/02/2014 12:00 AM DO NOT RESUSCITATE Advance Directives and Living Will 02/27/2014 12:00 AM POWER OF CAREER CONSULTANT FO R HEALTH CARE Advance Directives and Living Will 02/27/2014 12:00 AM POWER OF CAREER CONSULTANT FO R HEALTH CARE Advance Directives and Living Will 02/11/2014 12:00 AM POWER OF CAREER CONSULTANT FO R HEALTH CARE Advance Directives and Living Will 02/11/2014 12:00 AM POWER OF CAREER CONSULTANT FO R HEALTH CARE Advance Directives and Living Will 02/01/2014 12:00 AM POWER OF CAREER CONSULTANT FO R HEALTH CARE Advance Directives and Living Will 02/01/2014 12:00 AM POWER OF CAREER CONSULTANT FO R HEALTH CARE Advance Directives and Living Will 01/10/2014 12:00 AM POWER OF CAREER CONSULTANT FO R HEALTH CARE Advance Directives and Living Will 01/10/2014 12:00 AM POWER OF CAREER CONSULTANT FO R HEALTH CARE Care Teams Fisher Lobster Relationship Specialty Start Date End Date Frank Valentino MD [address] [place] [address] PCP - General INTERNAL MEDICINE 12/21/24
--- OUTSIDE RECORDS SUMMARY | 2025-04-10 00:38 | XMS_ITS | Encounter Summary ---
Author Organization [facility] Address Formerly [facility], [facility] [place] [address] Care Team Providers Care Bombsight Specialist Name Role Phone Charlie Vinson MD Primary Care Provider U Servando Torres DO Primary Care Provider [phone] Frank Valentino MD Primary Care Provider [phone] Encounter Details Date Type Department Care Team (Late st Contact Info) Description 02/17/2019 Abstract [facility] CONVERSION [address] [place] [address] , Generic Conversion, Social History Tobacco Use Types Packs/Day Years Used Date Smoking Tobacco: Former Cigarettes 1.5 40 1 973 - 2013 Smokeless Tobacco: Never Alcohol Use Standard Drinks/Week Comments No 0 (1 standard drink = 0.6 oz pur e alcohol) AUDIT-C Answer Date Recorded Frequency of Alcohol Consumption Never 08/25/2018 Average Number of Drinks Not on file 018 Frequency of Binge Drinking Not on file 08/12 Education Answer Date Recorded What is the [...] on filedocumented in this encounter Care Teams Bombsight Specialist Relationship Specialty Start Date End Date Charlie Vinson MD PCP - General INTERNAL MEDICINE 08/28/18 03/18/22 Servando Dumas DO PCP - General FAMILY PRACTICE 03/19/22 12/20/24 Frank Valentino MD [address] [address] PCP - General INTERNAL MEDICINE 12/21/24 documented as of this encounter
--- OUTSIDE RECORDS SUMMARY | 2025-04-10 00:38 | XMS_ITS | Referral Summary ---
Author Organization [facility] [address] [place] [address] [address] [place] [address] Care Team Providers Care Maintenance And Custodian Supervisor Name Role Phone Frank Valentino MD Primary Care Provide r Encounters Date Type Department Care Team Description 04/01/2025 1:00 PM CDT Office Visit [facility] Medical [facility] Cardiology [address] [place] [address] Frank Nam MD Coronary arteriosclerosis in [place] artery (Primary Dx); Hx of CABG; Cardiomyopathy, ischemic 03/29/2025 Telephone [facility] Medical [facility] Cardiology [address] [place] [address] Frank Nam MD from Last 3 Months Allergies Active Allergy Reactions Criticality Noted Date Comments Atorvastatin Muscle pain Medium Cyclobenzaprine Unknown Medium Levofloxacin Nausea & Vomiting High Metronidazole Nausea & Vomiting Medium Penicillins Hives Medium Pravastatin Muscle pain Medium Rosuvastatin Muscle pain Medium Tramadol Itching Low Medications finasteride (PROSCAR) 5 mg tablet take 1 tablet (5MG) by oral route every day 0 012 Active tamsulosin (FLOMAX) 0.4 mg capsule,extended release 24hr take 1 by Oral route every day 0 012 Active albuterol (PROVENTIL,VENTOLIN ) 0.63 mg/3 mL nebulizer solution use twice daily 0 013 Active aspirin 81 mg tablet take 1 tablet by oral route every day 0 0 016 Active ipratropium-albuter ol (DUO-NEB) 0.5-2.5 mg/3 mL nebulizer solutionIndications :Chronic Obstructive Pulmonary Disease with Bronchospasms Take by nebulization every 6 (six) hours. Active pantoprazole DR (PROTONIX) 40 mg EC tablet Take 1 tablet (40 mg total) by mouth 2 (two) times a day Active oxygenIndications:D yspnea Administer 4 L/min into each nostril Active diphenhydrAMINE-bereket taminophen (TYLENOL PM) 25-500 mg tablet Take 1 tablet by mouth Active budesonide (PULMICORT) 0.5 mg/2 mL nebulizer solution 022 Active glimepiride (AMARYL) 1 mg tablet Take 1 tablet (1 mg total) by mouth 022 Active sertraline (ZOLOFT) 50 mg tablet Take 1 tablet (50 mg total) by mouth daily 024 Active pravastatin (PRAVACHOL) 20 mg tabletIndications:C oronary arteriosclerosis in [place] artery,Multiple-typ e hyperlipidemia Take 1 tablet by mouth once daily 90 tablet 2 025 Active bumetanide (BUMEX) 2 mg tabletIndications:C hronic combined systolic and diastolic heart failure (HCC) Take 1 tablet by mouth once daily 90 tablet 025 Active ezetimibe (ZETIA) 10 mg tabletIndications:M ultiple-type hyperlipidemia Take 1 tablet by mouth once daily 90 tablet 025 Active clopidogreL (PLAVIX) 75 mg tablet Take 1 tablet by mouth once daily 90 tablet 1 025 Active lisinopriL (PRINIVIL,ZESTRIL) 5 mg tabletIndications:E ssential hypertension,Hypote nsion due to drugs Take 1 tablet by mouth once daily 90 tablet 025 Active spironolactone (ALDACTONE) 25 mg tabletIndications:C hronic combined systolic and diastolic heart failure (HCC) Take 1 tablet by mouth once daily 90 tablet 025 Active ezetimibe (ZETIA) 10 mg tabletIndications:M ultiple-type hyperlipidemia Take 1 tablet by mouth once daily 90 tablet 025 07/07/ 2025 Discontinued clopidogreL (PLAVIX) 75 mg tablet Take 1 tablet by mouth once daily 90 tablet 025 2024 Discontinued lisinopriL (PRINIVIL,ZESTRIL) 5 mg tabletIndications:E ssential hypertension,Hypote nsion due to drugs Take 1 tablet by mouth once daily 90 tablet 025 2024 Discontinued spironolactone (ALDACTONE) 25 mg tabletIndications:C hronic combined systolic and diastolic heart failure (HCC) Take 1 tablet by mouth once daily 90 tablet 025 2024 Discontinued Active Problems Problem Noted Date Diagnosed Date Cardiomyopathy, ischemic 06/10/2023 Aneurysm of ascending aorta without rupture 05/14 Chronic venous insufficiency 07/08/2022 Essential hypertension 12/30/2021 Morbid (severe) obesity due to excess calories 0 12/30/2021 Mixed diabetic hyperlipidemi a associated with type 2 diabetes mellitus 06/22/2021 Swelling of right foot 06/22/2021 Bradycardia 12/15/2020 Malaise and fatigue 07/11/2020 Statin myopathy 2019 Hypotension due to drugs 04/16/2019 Peripheral arterial disease 04/16/2019 SOB (shortness of breath) 10/30/2018 Thoracic aortic aneurysm without rupture 018 Other emphysema 11/13/2017 Obesity (BMI 30-39.9) 04/05/2017 Assessment & Plan (04/05/2017 4:24 PM CDT): Gaining weight Obstructive sleep apnea syndrome 10/05/2016 Overview (12/17/2016): JOSE A (obstructive sleep apnea) Hx of CABG 07/15/2016 Overview (12/16/2016): 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 CHF has improved. 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 Overview (12/17/2016): Old VA (myocardial infarction) Coronary arteriosclerosis in [place] artery 12/10 Overview (12/17/2016): CRNRY ATHRSCL NATVE VSSL Assessment & Plan (04/05/2017 4:19 PM CDT): Multiple Mis and stents due to late stent thrombosis. Ultimately underwent CABG w/ radial artery graft to PDA. Diffuse CAD Iin other vessels. Stable w/o angina. Hopefully if he needs to come off Plavix for GI procedures, he can do so safely w/o having VA. Abdominal aortic aneurysm (AAA) without rupture 12/10/2013 Overview (12/17/2016): AAA (abdominal aortic aneurysm) Post percutaneous 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 coronary angiopla sty 12/10/2013 Overview (12/17/2016): STATUS-POST PTCA Resolved Problems Problem Noted Date Diagnosed Date Resolved Date Essential hypertension 06/22/202106/22 Statin-induced myositis 07/11/202001/2021 Chronic coronary artery disease 05/04/2016 2019 Acute non-ST elevation myoca rdial infarction (NSTEMI) 04/26/2016 10/30/2018 Overview (12/17/2016): Non-ST elevation (NSTEMI) myocardial infarction Coronary stent thrombosis 02/19/2016 Overview (12/17/2016): Coronary stent thrombosis, subsequent encounter Statin intolerance 12/01/2015 0 Overview (12/17/2016): Statin intolerance Multiple-type hyperlipidemia 12/10/2013 06/10/2023 Overview (12/17/2016): MIXED HYPERLIPIDEMIA Assessment & Plan (04/05/2017 4:26 PM CDT): 11/2015 LDL 137 on praavastatin 20 mg qd. 09/2016 LDL 120. Statin-intolerant and insurance wouldn't cover injectable. Chronic ischemic heart disease 12/10/2013 12/25/2019 Overview (12/17/2016): CHR ISCHEMIC HRT DIS NOS Assessment & Plan (04/05/2017 4:21 PM CDT): Improving. Essential hypertension 08/13/201312/30 Overview (12/17/2016): HTN (hypertension) Hypertension associated with diabetes 02/12/2013 06/10/2023 Overview (12/17/2016): BENIGN HYPERTENSION Congestive heart failure 12/26/2011 Overview (12/17/2016): CHF NOS Social History Tobacco Use Types Packs/Day Years Used Date Smoking Tobacco: Former Cigarettes Q uit: 03/25/2013 Smokeless Tobacco: Never Tobacco Cessation:Counseling Given: Not Answered Alcohol Use Standard Drinks/Week Comments No 0 (1 standard drink = 0.6 oz pur e alcohol) Sex and Gender Information Value Date Recorded Sex Assigned at Not on file 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 Gender Identity Male 06/30/2020 11:30 AM CDT Sexual Orientation Straight 01/18/2022 12 :29 PM CDT Last Filed Vital Signs Vital Sign Reading Time Taken Comments Blood Pressure 110/68 04/01/2025 12:50 PM CDT Pulse 68 04/01/2025 12:50 PM CDT Temperature - - Respiratory Rate - - Oxygen Saturation 91% 04/01/2025 12:50 PM CDT with O2 Inhaled Oxygen Concentration - - Weight 99.8 kg (220 lb) 04/01/2025 12:50 PM CDT Height 182.9 cm (6') 04/01/2025 12:50 PM CDT Body Mass Index 29.84 04/01/2025 12:50 PM CDT Plan of Treatment Not on file Procedures Procedure Name Priority Date/Time Associated Diagnosis Comments LIPID PANEL Routine 09/23/2021 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 (HCC) from Last 3 Months or Most Recently Relevant to Health Maintenance Results * Lipid panel (09/23/2021) SCRIBED Cholesterol, Total 185 <200 EXTERNAL LAB SCRIBED HDL 50 >40 EXTERNAL LAB SCRIBED LDL 101 <100 EXTERNAL LAB SCRIBED Triglycerides 107 <150 EXTERNAL LAB Blood specimen (specimen) 09/23/2021 us Emily Wick MD LAB BLOOD ORDERABLES Final Result EXTERNAL LAB from Last 3 Months or Most Recently Relevant to Health Maintenance Insurance [facility] GOLD [employer] MEDICARE GOLD Care Teams Maintenance And Custodian Supervisor Relationship Specialty Start Date End Date Frank Valentino MD [address] [facility] [place] [id number] PCP - General Emergency Medicine 09/14/24
--- OUTSIDE RECORDS SUMMARY | 2025-04-10 00:38 | XMS_ITS | Encounter Summary ---
Author Organization [facility] Healthcare Address [address] [place] [address] Care Team Providers Care Software Clerk Name Role Phone Frank Valentino MD Primary Care Provide r Encounter Details Date Type Department Care Team (Late st Contact Info) Description 03/29/2025 Telephone [facility] Medical Group Cardiology [address] [place] [address] Frank Nam MD [address] [place], [place] [id number] Social History Tobacco Use Types Packs/Day Years Used Date Smoking Tobacco: Former Cigarettes Q uit: 03/25/2013 Smokeless Tobacco: Never Alcohol Use Standard Drinks/Week Comments No 0 (1 standard drink = 0.6 oz pur e alcohol) Sex and Gender Information Value Date Recorded Sex Assigned at Not on file 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 Advised that we do not have a cardiac clearance request for pt. She will refax. * Telephone Encounter - Steve Guzmannca - 03/29/2025 1:44 PM CDT Toma with [facility] states they faxed a cardiac clearance request on 03/20 but they have not received it back yet. Requesting call back with an update. Contact: documented in this encounter Plan of Treatment Not on file documented as of this encounter Visit Diagnoses Not on filedocumented in this encounter Care Teams Software Clerk Relationship Specialty Start Date End Date Frank Valentino MD [address] [place] [address] PCP - General Emergency Medicine 09/14/24 documented as of this encounter
--- OUTSIDE RECORDS SUMMARY | 2025-04-10 00:38 | XMS_ITS | Clinical Summary ---
Author Organization [facility] [address] [place] [address] Care Team Providers Care Diesel Power Shovel Operator Name Role Phone Frank Valentino MD Primary Care Provide r Allergies Active Allergy Reactions Criticality Noted Date [...] budesonide (PULMICORT) 0.5 mg/2 mL nebulizer solution Active glimepiride (AMARYL) 1 mg tablet Take 1 tablet (1 mg total) by mouth Active sertraline (ZOLOFT) 50 mg tablet Take 1 tablet (50 mg total) by mouth daily 024 Active pravastatin (PRAVACHOL) 20 mg tabletIndications:C oronary arteriosclerosis in [place] artery,Multiple-typ e hyperlipidemia Take 1 tablet by [...] once daily 90 tablet 025 2024 Discontinued clopidogreL (PLAVIX) 75 mg tablet Take [...] 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 Overview (12/17/2016): Old [place] (myocardial infarction) Coronary arteriosclerosis in [place] artery 12/10 Overview (12/17/2016): CRNRY ATHRSCL NATVE VSSL Assessment & Plan (04/05/2017 4:19 PM CDT): Multiple Mis and stents due to late stent thrombosis. Ultimately underwent CABG w/ radial artery graft to PDA. Diffuse CAD Iin other vessels. Stable w/o angina. Hopefully if he needs to come off Plavix for GI procedures, he can do so safely w/o having [place]. Abdominal aortic aneurysm (AAA) without rupture 12/10/2013 [...] thrombosis, subsequent encounter Statin intolerance 12/01/2015 Overview (12/17/2016): Statin intolerance Multiple-type hyperlipidemia 12/10/2013 [...] heart failure 12/26/2011 Overview (12/17/2016): CHF NOS Encounters Date Type Department Care Team Description 04/01/2025 1:00 PM CDT Office Visit [facility] Medical Group Cardiology [address] [place] [address] Frank Nam MD Coronary arteriosclerosis in [place] artery (Primary Dx); Hx of CABG; Cardiomyopathy, ischemic 03/29/2025 Telephone [facility] Medical Group Cardiology [address] [place] [address] Frank Nam MD from Last 3 Months Surgical History Surgery Date Site/Laterality Comments HIATAL HERNIA REPAIR Hiatal Hernia Repair HEMORRHOID SURGERY Hemorrhoidectomy TRANSURETHRAL RESECTION OF PROSTATE 2009 TURP OTHER SURGICAL HISTORY Diabetic Neuropathy: Medical History Medical History Date Comments Chronic obstructive pulmonar y disease (HCC) COPD Hx Other Medical Hiatal Hernia - large Hx Other Medical pneumoconiosis & pul asbestos (work related) Hx Other Medical BPH Hx Other Medical Bilateral Catar acts Hx Other Medical 2013 Diabetic Neurop athy Hx Other Medical Memory loss Family History Medical History Relation Name Comments Heart attack Brother 3 Myocardial Infa rction; Other Brother 3 Aortic Aneurysm Repair; Cause of : Aortic Aneurysm Repair Diabetes type II Father 2 Diabetes Ty pe II; Leukemia Mother 2 Leukemia; Cause of : Leukemia Relation Name Status Comments Brother 1 Alive Brother 2 Brother 3 Father 1 Alive Father 2 Mother 1 (Age 30) Mother 2 Social History Tobacco Use Types Packs/Day Years Used Date Smoking Tobacco: Former Cigarettes Q uit: 03/25/2013 Smokeless Tobacco: Never Tobacco Cessation:Counseling Given: Not Answered Alcohol Use Standard Drinks/Week Comments No 0 (1 standard drink = 0.6 oz pur e alcohol) Sex and Gender Information Value Date Recorded Sex Assigned at Not on file 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 Gender Identity Male 06/30/2020 11:30 AM CDT Sexual Orientation Straight 01/18/2022 12 :29 PM CDT Obstetrics History Last Filed Vital Signs Vital Sign Reading [...] 04/01/2025 12:50 PM CDT Plan of Treatment Health Maintenance Due Date Last Done Comments Albumin Creatinine Ratio, Urine 1942 Depression Screening 1942 Fall Risk Assessment 1942 Hemoglobin A1C 1942 eGFR 1942 Dilated Eye Exam 1942 Foot Exam 1942 Hepatitis B Screening 1960 Zoster Vaccine (1 of 2) 1992 Well Visit 65+ 12/25/2007 Pneumococcal vaccine 65+ (2 of 2 - PPSV23) 08/06/2019 06/11/2019, 09/12/2011 Influenza Vaccine (#1) 2025 , 06/05/2018, 06/06/2017, Additional history exists Lipid Panel 12/21/2025 12/21/2024, 09/12, 12/15/2020, Additional history exists DTaP/Tdap/Td Vaccine (2 - Td or Tdap) 03/19/2032 03/19/2022 Abdominal Aortic Aneurysm (A AA) Screen Completed 06/07/2023, 12/25/2019, 04/16/2019, Additional history exists Procedures Procedure Name Priority Date/Time Associated Diagnosis Comments LIPID PANEL Routine 09/23/2021 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 (HCC) from Last 3 Months or Most Recently Relevant to Health Maintenance Results * Lipid panel (09/23/2021) SCRIBED Cholesterol, Total 185 <200 EXTERNAL LAB SCRIBED HDL 50 >40 EXTERNAL LAB SCRIBED LDL 101 <100 EXTERNAL LAB SCRIBED Triglycerides 107 <150 EXTERNAL LAB Blood specimen (specimen) 09/23/2021 Emily Wick MD LAB BLOOD ORDERABLES Final Result EXTERNAL LAB from Last 3 Months or Most Recently Relevant to Health Maintenance Insurance [facility] MEDICARE [facility] [employer] MEDICARE [facility] Care Teams Diesel Power Shovel Operator Relationship Specialty Start Date End Date Frank Valentino MD [address] [place] [address] PCP - General Emergency Medicine 09/14/24
--- OUTSIDE RECORDS SUMMARY | 2025-04-10 00:38 | XMS_ITS | Encounter Summary ---
Author Organization [facility] Medical Group Address [address] [place] [address] Care Team Providers Care Commodities Manager Name Role Phone Charlie Vinson MD Primary Care Provider Charlie Vinson MD Primary Care Provider Juan Godoy MD Primary Care Provider [phone] Servando Dumas DO Primary Care Provider [phone] Frank Valentino MD Primary Care Provide r Encounter Details Date Type Department Care Team (Late st Contact Info) Description 10/20/2016 Orders Only [facility] Provider, MD [place] [address] [place] [address] Social History Tobacco Use Types Packs/Day Years Used Date Smoking Tobacco: Former Alcohol Use Standard Drinks/Week Comments No 0 (1 standard drink = 0.6 oz pur e alcohol) Sex and Gender Information Value Date Recorded Sex Assigned at Not on file 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 us Historical Provider [facility] BRANDY BERGMAN Final Result documented in this encounter Visit Diagnoses Not on filedocumented in this encounter Care Teams Commodities Manager Relationship Specialty [place] [address] [place] [address] PCP - General 12/10/16 06/30/20 [place] [address] [place] [address] PCP - General 01/03/12 12/09/16 Juan Godoy MD [address] [place] [address] PCP - General Internal Medicine 07/01/20 01/01/22 Servando Dumas DO [address] [place] [address] PCP - General Family Medicine 01/02/22 09/13/24 Frank Valentino MD [address] [place] [address] PCP - General Emergency Medicine 09/14/24 documented as of this encounter
--- OUTSIDE RECORDS SUMMARY | 2025-04-10 00:38 | XMS_ITS | Encounter Summary ---
Author Organization [facility] Address [address] [place] [address] Care Team Providers Care Software Security Architect Name Role Phone Charlie Vinson MD Primary Care Provider U Servando Torres DO Primary Care Provider [phone] Frank Valentino MD Primary Care Provider [phone] Encounter Details Date Type Department Care Team (Late st Contact Info) Description 12/18/2012 Abstract [facility] CONVERSION [address] [place], [place] [id number] , Binta Skelton MD Social History Tobacco [...] filedocumented in this encounter Care Teams Software Security Architect Relationship Specialty Start Date End Date Charlie Vinson MD PCP - General INTERNAL MEDICINE 08/28/18 03/18/22 Servando Dumas DO PCP - General FAMILY PRACTICE 03/19/22 12/20/24 Frank Valentino MD [address] [place] [address] PCP - General INTERNAL MEDICINE 12/21/24 documented as of this encounter
[2025-04-10 12:17] VITALS: BP 126/45; PULSE 58; RESP 24; TEMP 36.1; O2SAT 94
[2025-04-10] MEDS: LACTATED RINGERS 1,000 ML 150 ML IV CONT (12:31)
--- NOTE | 2025-04-10 13:02 | WPDANESEPPF ---
Anes - Initial Pre Proc Eval Procedure: Operation Date: 04/10/25 13:15 Proposed Procedures p Esophagogastroduodenoscopy - Morro Mckenna MD Date/Time: 04/10/25 13:02 Surgeon: Morro Mckenna MD Pre Op Diagnosis: Gastro-esophageal reflux disease without esophagit Patient Data Age: 84 Gender: M Height: 1.85 m Weight: 113.4 kg Last Vital Signs Temp 97 F L 04/10/25 12:17 Pulse 58 L 04/10/25 12:17 Resp 24 H 04/10/25 12:17 BP 126/45 L 04/10/25 12:17 Pulse Ox 94 04/10/25 12:17 O2 Del Method Nasal Cannula 04/10/25 12:17 O2 Flow Rate 3 04/10/25 12:17 Allergies Allergy/AdvReac Type Severity Reaction Status Date / Time levofloxacin Allergy Intermediate Hives / Verified 03/25/25 08:51 Red Face metronidazole Allergy Intermediate Itching Verified 03/25/25 08:51 Penicillins Allergy Intermediate HIVES Verified 03/25/25 08:51 sulfamethoxazole Allergy Intermediate unknown Verified 03/25/25 08:51 tramadol Allergy Intermediate Itching Verified 03/25/25 08:51 trimethoprim Allergy Intermediate unknown Verified 03/25/25 08:51 cyclobenzaprine AdvReac Intermediate REPORTS Verified 03/25/25 08:51 INCREASED URINATION oxycodone AdvReac Intermediate gets Verified 03/25/25 08:51 goofy Home Medications ?Medication ?Instructions ?Recorded ?Confirmed ?Type finasteride 5 mg tablet 5 mg PO HS 07/16/19 04/10/25 History pravastatin 20 mg tablet 20 mg PO HS 07/16/19 04/10/25 History spironolactone 25 mg tablet 25 mg PO DAILY 07/16/19 04/10/25 History tamsulosin 0.4 mg capsule 0.4 mg PO QPM 07/16/19 04/10/25 History clopidogrel 75 mg tablet (Plavix) 75 mg PO HS 06/03/20 04/10/25 History aspirin 81 mg tablet 81 mg PO QPM 07/23/20 04/10/25 History ezetimibe 10 mg tablet (Zetia) 10 mg PO QHS 07/23/20 04/10/25 History lancets 30 gauge (Ultra Fine #100 ea 09/28/21 03/25/25 Rx Lancets) blood-glucose meter (OneTouch #1 ea 10/02/21 03/25/25 Rx Ultra2 Meter) lisinopril 5 mg tablet 5 mg PO DAILY 01/21/22 04/10/25 History bumetanide 2 mg tablet 2 mg PO DAILY 10/14/22 04/10/25 History budesonide 0.5 mg/2 mL suspension 0.5 mg (2 mL) inhalation BID #120 05/28/24 04/10/25 Rx for nebulization mL pantoprazole 40 mg tablet,delayed See Rx Instructions .Route 06/13/24 04/10/25 Rx release .COMPLEX #180 tabs albuterol sulfate 2.5 mg/3 mL See Rx Instructions .Route 08/13/24 03/25/25 Rx (0.083 %) solution for nebulization .COMPLEX #360 mL oxygen See Rx Instructions inhalation 08/13/24 04/10/25 History DAILY sertraline 50 mg tablet 50 mg PO DAILY #90 tabs 08/17/24 04/10/25 Rx blood sugar diagnostic (OneTouch #100 ea 10/12/24 03/25/25 Rx Ultra Test strips) diphenhydramine 25 1 tablet PO QHS PRN sleep 01/10/25 03/25/25 History mg-acetaminophen 500 mg tablet (Tylenol PM Extra Strength) glimepiride 1 mg tablet 1 mg PO DAILY #90 tabs 01/21/25 04/10/25 Rx Laboratory Tests 04/10/25 12:22 POC Capillary Glucose 86 mg/dl (65-105) Patient hx anesthesia problems: none Family hx anesthesia problems: none Results Review: All pre-operative results and documents have been reviewed as part of the pre-operative evaluation. [facility] Past Medical History Medical History Pedal edema Wheezing CAD (coronary artery disease) Type 2 diabetes mellitus Hyperlipidemia Hypertension BPH (benign prostatic hyperplasia) COPD (chronic obstructive pulmonary disease) CHF (congestive heart failure) Acute and chronic respiratory failure with hypoxia Acute and chronic respiratory failure History of terminal esophageal web Skin tear of forearm without complication Fall as cause of accidental injury at home as place of occurrence Adult BMI 36.0-36.9 kg/sq m Body mass index (BMI) 35.0-35.9, adult (06/20/18) Cardiomyopathy, ischemic Debility NSTEMI (non-ST elevated myocardial infarction) Old [place] (myocardial infarction) Surgical History Surgical History H/O hernia repair Hx of CABG S/P percutaneous 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 History of PTCA S/P CABG (coronary artery bypass graft) Family History Family History Sibling Family history of cardiovascular disease Family history of coronary artery disease Family history of heart disease in male family member before age 55 Heart disease Hypertension Mother Family history of malignant neoplasm, Onset Age: 30 Patient's mother is Cancer Father Diabetes mellitus Family history of cardiovascular disease Other Leukemia Social History Social History Smoking packs per day: 1 Smoking cigarettes per day: 20.0 Years smoked: 65 Smoking pack-years: 65.00 Smoking status: Former smoker Tobacco type: cigarettes Smoking end date: 09/12/11 Alcohol intake: never Substance use: never Substance use type: does not use Do You Feel Safe in your Home?: Yes Lack of Transportation: No Lack of Food: Never True Current Housing: Decline to Answer Concerned About Future Housing: Decline to Answer Difficulty Paying Gas/Electric Bills: Decline to Answer Difficulty Paying for Meds: Decline to Answer Currently Unemployed: Decline to Answer Education: Decline to Answer Difficulty w/ Childcare or Family Care: Decline to Answer Living arrangements: with family Spiritual care concerns: No Anes - Eval Final PreProcedure Day of Procedure 04/10/25 13:02 Patient weight: normal Heart: regular rate and rhythm Lungs: clear to auscultation Airway: Mallampati scale class III Neurological: alert and oriented Last oral intake: >/= 8 hours ASA classification: IV Emergent: no Anesthetic plan: proceed Anesthesia type and monitoring: general GIVS and standard monitoring Results Review: All pre-operative results and documents have been reviewed as part of the pre-operative evaluation. Informed Consent: The patient's anesthetic plan and its attendant risks and benefits were discussed with the patient/family/POA. Questions were solicited and answers provided to the satisfaction of the patient/family/POA. He wants full resuscitation but no heroic measures
--- NOTE | 2025-04-10 13:16 | P.HP_ITS ---
History of Present Illness History of Present Illness Consent: Risks, benefits, and alternatives have been discussed and questions answered. Patient agrees to proceed with procedure. Chief complaint: Gastro-esophageal reflux disease without esophagit Narrative: Cecilio Ribeiro is a 84 year old male with dysphagia, h/o esophageal web s/p dilation Review of Systems Review of Systems: All systems reviewed & are unremarkable except as noted in HPI and below PMFSH Past Medical History Medical History Pedal edema Wheezing CAD (coronary artery disease) Type 2 diabetes mellitus Hyperlipidemia Hypertension BPH (benign prostatic hyperplasia) COPD (chronic obstructive pulmonary disease) CHF (congestive heart failure) Acute and chronic respiratory failure with hypoxia Acute and chronic respiratory failure History of terminal esophageal web Skin tear of forearm without complication Fall as cause of accidental injury at home as place of occurrence Adult BMI 36.0-36.9 kg/sq m Body mass index (BMI) 35.0-35.9, adult (06/20/18) Cardiomyopathy, ischemic Debility NSTEMI (non-ST elevated myocardial infarction) Old [place] (myocardial infarction) Surgical History Surgical History H/O hernia repair Hx of CABG S/P percutaneous 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 History of PTCA S/P CABG (coronary artery bypass graft) Family History Family History Sibling Family history of cardiovascular disease Family history of coronary artery disease Family history of heart disease in male family member before age 55 Heart disease Hypertension Mother Family history of malignant neoplasm, Onset Age: 30 Patient's mother is Cancer Father Diabetes mellitus Family history of cardiovascular disease Other Leukemia Social History Social History Smoking packs per day: 1 Smoking cigarettes per day: 20.0 Years smoked: 65 Smoking pack-years: 65.00 Smoking status: Former smoker Tobacco type: cigarettes Smoking end date: 09/12/11 Alcohol intake: never Substance use: never Substance use type: does not use Do You Feel Safe in your Home?: Yes Lack of Transportation: No Lack of Food: Never True Current Housing: Decline to Answer Concerned About Future Housing: Decline to Answer Difficulty Paying Gas/Electric Bills: Decline to Answer Difficulty Paying for Meds: Decline to Answer Currently Unemployed: Decline to Answer Education: Decline to Answer Difficulty w/ Childcare or Family Care: Decline to Answer Living arrangements: with family Spiritual care concerns: No Meds Home Medications and Allergies Home Medications ?Medication ?Instructions ?Recorded ?Confirmed ?Type finasteride 5 mg tablet 5 mg PO HS 07/16/19 04/10/25 History pravastatin 20 mg tablet 20 mg PO HS 07/16/19 04/10/25 History spironolactone 25 mg tablet 25 mg PO DAILY 07/16/19 04/10/25 History tamsulosin 0.4 mg capsule 0.4 mg PO QPM 07/16/19 04/10/25 History clopidogrel 75 mg tablet (Plavix) 75 mg PO HS 06/03/20 04/10/25 History aspirin 81 mg tablet 81 mg PO QPM 07/23/20 04/10/25 History ezetimibe 10 mg tablet (Zetia) 10 mg PO QHS 07/23/20 04/10/25 History lancets 30 gauge (Ultra Fine #100 ea 09/28/21 03/25/25 Rx Lancets) blood-glucose meter (OneTouch #1 ea 10/02/21 03/25/25 Rx Ultra2 Meter) lisinopril 5 mg tablet 5 mg PO DAILY 01/21/22 04/10/25 History bumetanide 2 mg tablet 2 mg PO DAILY 10/14/22 04/10/25 History budesonide 0.5 mg/2 mL suspension 0.5 mg (2 mL) inhalation BID #120 05/28/24 04/10/25 Rx for nebulization mL pantoprazole 40 mg tablet,delayed See Rx Instructions .Route 06/13/24 04/10/25 Rx release .COMPLEX #180 tabs albuterol sulfate 2.5 mg/3 mL See Rx Instructions .Route 08/13/24 03/25/25 Rx (0.083 %) solution for nebulization .COMPLEX #360 mL oxygen See Rx Instructions inhalation 08/13/24 04/10/25 History DAILY sertraline 50 mg tablet 50 mg PO DAILY #90 tabs 08/17/24 04/10/25 Rx blood sugar diagnostic (OneTouch #100 ea 10/12/24 03/25/25 Rx Ultra Test strips) diphenhydramine 25 1 tablet PO QHS PRN sleep 01/10/25 03/25/25 History mg-acetaminophen 500 mg tablet (Tylenol PM Extra Strength) glimepiride 1 mg tablet 1 mg PO DAILY #90 tabs 01/21/25 04/10/25 Rx Allergies Allergy/AdvReac Type Severity Reaction Status Date / Time levofloxacin Allergy Intermediate Hives / Verified 03/25/25 08:51 Red Face metronidazole Allergy Intermediate Itching Verified 03/25/25 08:51 Penicillins Allergy Intermediate HIVES Verified 03/25/25 08:51 sulfamethoxazole Allergy Intermediate unknown Verified 03/25/25 08:51 tramadol Allergy Intermediate Itching Verified 03/25/25 08:51 trimethoprim Allergy Intermediate unknown Verified 03/25/25 08:51 cyclobenzaprine AdvReac Intermediate REPORTS Verified 03/25/25 08:51 INCREASED URINATION oxycodone AdvReac Intermediate gets Verified 03/25/25 08:51 goofy Vital Signs Vital Signs - 24 hr 04/10/25 12:17 Temperature 97 F L Pulse Rate 58 L Respiratory Rate 24 H Blood Pressure 126/45 L Pulse Oximetry 94 Oxygen Delivery Nasal Cannula Oxygen Flow Rate 3 Exam Const: General: comfortable and no acute distress HENMT: Face/Nose/Sinus: Normal nares present Eyes: General: appearance normal, both eyes and all related structures Neck: Neck: no JVD Resp: Auscultation: clear to auscultation bilaterally Cardio: Rate: regular rate Rhythm: regular rhythm GI: Inspection: non-distended GI Palp: Yes Soft to palpation Skin: General skin exam: normal color Neuro: Speech: normal speech Extrem: General: normal to inspection Psych: Mental Status: mental status grossly normal Assessment and Plan Assessment and plan (1) Dysphagia: Code(s): R13.10 - Dysphagia, unspecified Status: Acute Assessment and Plan: egd
[2025-04-10] MEDS: BENZOCAINE (*SP) 60 ML SPRAY CAN (HURRICAINE) 1 SPRAY MUCOUS MEM (13:21)
[2025-04-10 13:39] VITALS: BP 101/58; PULSE 48; RESP 18; O2SAT 100
[2025-04-10 13:49] VITALS: BP 121/61; PULSE 52; RESP 18; O2SAT 100
[2025-04-10 13:59] VITALS: BP 132/66; PULSE 53; RESP 19; O2SAT 100
== END 2025-04-10 14:20 | disposition home or self-care (01) ==
PROVIDERS: PCP Emergency Medicine; Visit Provider Internal Medicine Gastroenterology
PROC: 0DJ08ZZ Inspection of Upper Intestinal Tract, Via Natural or Artificial Opening Endoscopic (ICD-10-PCS; CPT 43249; principal; 2025-04-10 13:15)
DX: K22.2 Esophageal obstruction (principal); K44.9 Diaphragmatic hernia without obstruction or gangrene; E78.5 Hyperlipidemia, unspecified; I25.10 Atherosclerotic heart disease of native coronary artery without angina pectoris; E11.9 Type 2 diabetes mellitus without complications; N40.0 Benign prostatic hyperplasia without lower urinary tract symptoms; J44.9 Chronic obstructive pulmonary disease, unspecified; I11.0 Hypertensive heart disease with heart failure; I50.9 Heart failure, unspecified; I25.9 Chronic ischemic heart disease, unspecified; J96.21 Acute and chronic respiratory failure with hypoxia; I25.2 Old myocardial infarction; Z79.02 Long term (current) use of antithrombotics/antiplatelets; Z79.82 Long term (current) use of aspirin; Z79.51 Long term (current) use of inhaled steroids; Z79.84 Long term (current) use of oral hypoglycemic drugs; Z98.890 Other specified postprocedural states; Z95.1 Presence of aortocoronary bypass graft; Z98.61 Coronary angioplasty status; Z87.891 Personal history of nicotine dependence; Z87.19 Personal history of other diseases of the digestive system; Z80.6 Family history of leukemia; Z82.49 Family history of ischemic heart disease and other diseases of the circulatory system
CPT/HCPCS: 43249; 82948; C1726; J2003; J2704; J7120

== ENCOUNTER 2025-09-03 08:34 | Emergency (ER) | payer MEDICARE, SELFPAY ==
[2025-09-03] VITALS (7 sets, daily range): BP systolic 122–143; BP diastolic 56–64; PULSE 51–69; RESP 16–20; TEMP 36.7; O2SAT 96–100
--- NOTE | ~2025-09-03 | XR_ITS ---
Examination: XR chest 1V portable Clinical History: chf Comparison: 01/10/2025 Technique: Portable AP Findings: Heart size upper limit of normal. Tiny patchy opacity left lateral lung. No acute bony abnormality. IMPRESSION: 1. Tiny atelectasis and/or pneumonitis left lung. 2. No pulmonary edema. Reviewed, dictated and finalized at location R. [employer] ARCHITECT
--- NOTE | ~2025-09-03 | CT_ITS ---
EXAMINATION: CTA chest PE protocol DATE: 09/03/2025 13:25 INDICATION: Chest pain. Increasing oxygen requirements. TECHNIQUE: Computed tomography (CT) pulmonary angiogram of the chest was performed with 100 mL Omnipaque-350 intravenous contrast. Additional 3D reconstructions utilizing coronal maximum intensity projection (MIP) were performed. Automated exposure control and iterative reconstruction technique were employed. The dose-length product was 655.47 mGy-cm. COMPARISON: Chest CT dated 03/30/2024 FINDINGS: No pulmonary embolism. Mild emphysema. There is diffuse mild bronchial wall thickening. Atelectasis in the posterior basilar segments of the bilateral lower lobes. Additional discoid atelectasis at the lingula. No pneumonia, pulmonary edema, pleural effusion or pneumothorax. Heart size is normal. Atherosclerotic coronary artery calcifications. Aortic valve and mitral annular calcification. 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 No pericardial effusion. Thoracic aorta is normal in caliber with no dissection. No pathologically enlarged thoracic lymphadenopathy. No significant change in a moderate-sized sliding-type hiatal hernia with chronic peripherally calcified ringlike prosthesis at the herniated cardia of the stomach. Multiple small subtle gallstones layering dependently at the neck of the posterior visualized gallbladder which demonstrate no abnormal wall thickening or pericholecystic inflammatory stranding. There appears to be hydronephrosis at the visualized upper poles of both the left and right kidneys. Mild thoracic spondylosis with chronic appearing compression fractures at T4, T7-T9 and L1. IMPRESSION: 1. No pulmonary embolism. 2. Mild emphysema with diffuse mild bronchial wall thickening which could be due to acute or chronic bronchitis or reactive airway disease/asthma. 3. Mild atelectasis in bilateral lower lobes and lingula. No pneumonia, pulmonary edema or other airspace disease. 4. Moderate-sized sliding-type hiatal hernia with ringlike prosthesis at the herniated cardia of the stomach. 5. Suggestion of at least mild hydronephrosis at the upper poles of both kidneys which suggests possible bladder outlet obstruction. Reviewed, dictated and finalized at location A. TMENT TECHNICIAN IMPRESSION: 1. No pulmonary embolism. 2. Mild emphysema with diffuse mild bronchial wall thickening which could be du e to acute or chronic bronchitis or reactive airway disease/asthma. 3. Mild atelectasis in bilateral lower lobes and lingula. No pneumonia, pulmona ry edema or other airspace disease. 4. Moderate-sized sliding-type hiatal hernia with ringlike prosthesis at the he rniated cardia of the stomach. 5. Suggestion of at least mild hydronephrosis at the upper poles of both kidney s which suggests possible bladder outlet obstruction.
--- NOTE | 2025-09-03 08:40 | ECG_ITS ---
Test Date: 2025-09-03 08:43:27 Measurements Intervals [place] Rate: 63 P: 0 IA: 0 QRS: 5 QRSD: 194 T: 119 QT: 506 QTc: 519 Interpretive Statements SINUS RHYTHM WITH FIRST DEGREE AV BLOCK LEFT BUNDLE BRANCH BLOCK BASELINE ARTIFACT- I, II, III, AVR, AVL, AVF, V1-V6 ABNORMAL ECG No previous ECG available for comparison Electronically Signed On 09-03-2025 09:03:15 TELEVISION ANNOUNCER by Raza Modi D.O.
[2025-09-03 09:12] LABS: Hematocrit 27.0 % (42.0-52.0); Hemoglobin 8.0 g/dL (14.0-18.0); Immature Granulocyte Percent A 0.6 % (0-0.5); Lymphocytes Absolute Auto 0.63 K/mm3 (0.9-3.2); Mean Corpuscular HGB Conc 29.6 g/dl (32-36); Mean Corpuscular Hemoglobin 24.1 pg (26-34); Mean Corpuscular Volume 81.3 fl (80-100); Nucleated Red Blood Cells Absolute Auto 0.000 K/mm3 (0.0-0.012); Nucleated Red Blood Cells Perc 0.0 % (0.0-0.2); Platelet Count Result 235 k/mm3 (150-375); Red Blood Count 3.32 M/mm3 (4.6-6.20); White Blood Count 6.5 K/mm3 (4.5-10.0)
[2025-09-03 09:24] LABS: INR 1.1; Prothrombin Time 13.9 Seconds (11.1-14.7)
[2025-09-03 09:25] LABS: Partial Thromboplastin Time 28.7 Seconds (22.3-36.8)
[2025-09-03 09:30] LABS: Alanine Aminotransferase 9 U/L (6-50); Albumin Level 4.1 g/dL (3.5-5.1); Alkaline Phosphatase 78 U/L (38-126); Anion Gap 6 mmol/L (4-12); Aspartate Amino Transferase 19 U/L (17-59); Bilirubin,Total 0.5 mg/dL (0.2-1.3); Blood Urea Nitrogen 24 mg/dL (9-20); Calcium 8.9 mg/dL (8.4-10.2); Carbon Dioxide 31 mmol/L (22-30); Chloride 101 mmol/L (98-107); Estimated CRCL calculation 51 ml/min; Estimated Glomerular Filt Rate 51; Glucose 89 mg/dL (65-110); Potassium 4.1 mmol/L (3.4-5.0); Sodium 138 mmol/L (137-145); Total Protein 7.4 g/dL (6.3-8.2)
[2025-09-03 09:34] LABS: Anisocytosis 1+; Hypochromasia 1+; Schistocytes None Seen
[2025-09-03 09:36] LABS: NT Pro B Type Natriuretic Pept 397 pg/mL (19.9-100); Troponin I 0.014 ng/mL (0.000-0.034)
[2025-09-03 09:48] LABS: Influenza A QL RT-PCR Negative (Negative); Influenza B QL RT-PCR Negative (Negative); RSV RNA, RT-PCR Negative (Negative); SARS-CoV-2 RNA PCR Negative (Negative)
[2025-09-03 09:51] LABS: Lipase 31 U/L (23-300)
--- NOTE | 2025-09-03 10:01 | ED.NAVMDI ---
HPI - Nausea/Vomiting/Diarrhea General Chief complaint: Nausea/Vomiting/Diarrhea Stated complaint: many complaints Time Seen by Provider: 09/03/25 09:24 Source: patient and family Mode of arrival: EMS Limitations: no limitations History of Present Illness HPI Narrative: This is an 84-year-old male that presents to the emergency department for nausea. Reportedly woke up and episode of nausea with left arm pain. The symptoms has resolved. His reports his ankles have been a little swollen. Brought him in to be checked out. Patient wears oxygen via nasal cannula chronically. History of COPD and heart failure. He did not take any of his medications this morning. Denies chest pain. Related Data Home Medications ?Medication ?Instructions ?Recorded ?Confirmed ?Last Taken ?Type finasteride 5 mg tablet 5 mg PO HS 07/16/19 05/20/25 04/09/25 History pravastatin 20 mg tablet 20 mg PO HS 07/16/19 05/20/25 04/09/25 History spironolactone 25 mg tablet 25 mg PO DAILY 07/16/19 05/20/25 04/09/25 History tamsulosin 0.4 mg capsule 0.4 mg PO QPM 07/16/19 05/20/25 04/09/25 History clopidogrel 75 mg tablet (Plavix) 75 mg PO HS 06/03/20 05/20/25 04/02/25 History aspirin 81 mg tablet 81 mg PO QPM 07/23/20 05/20/25 04/09/25 History ezetimibe 10 mg tablet (Zetia) 10 mg PO QHS 07/23/20 05/20/25 04/09/25 History lisinopril 5 mg tablet 5 mg PO DAILY 01/21/22 05/20/25 04/09/25 History bumetanide 2 mg tablet 2 mg PO DAILY 10/14/22 05/20/25 04/09/25 History diphenhydramine 25 1 tablet PO QHS PRN sleep 01/10/25 05/20/25 Unknown History mg-acetaminophen 500 mg tablet (Tylenol PM Extra Strength) oxygen See Rx Instructions inhalation 05/20/25 05/20/25 Unknown History DAILY Allergies Allergy/AdvReac Type Severity Reaction Status Date / Time levofloxacin Allergy Intermediate Hives / Verified 05/20/25 13:00 Red Face metronidazole Allergy Intermediate Itching Verified 05/20/25 13:00 Penicillins Allergy Intermediate HIVES Verified 05/20/25 13:00 sulfamethoxazole Allergy Intermediate unknown Verified 05/20/25 13:00 tramadol Allergy Intermediate Itching Verified 05/20/25 13:00 trimethoprim Allergy Intermediate unknown Verified 05/20/25 13:00 cyclobenzaprine AdvReac Intermediate REPORTS Verified 05/20/25 13:00 INCREASED URINATION oxycodone AdvReac Intermediate gets Verified 05/20/25 13:00 goofy Review of Systems Review of Systems: All systems reviewed & are unremarkable except as noted in HPI and below PMFSH Past Medical History Medical History Pedal edema Wheezing CAD (coronary artery disease) Type 2 diabetes mellitus Hyperlipidemia Hypertension BPH (benign prostatic hyperplasia) COPD (chronic obstructive pulmonary disease) CHF (congestive heart failure) Acute and chronic respiratory failure with hypoxia Acute and chronic respiratory failure History of terminal esophageal web Skin tear of forearm without complication Fall as cause of accidental injury at home as place of occurrence Adult BMI 36.0-36.9 kg/sq m Body mass index (BMI) 35.0-35.9, adult (06/20/18) Cardiomyopathy, ischemic Debility NSTEMI (non-ST elevated myocardial infarction) Old [place] (myocardial infarction) Surgical History Surgical History H/O hernia repair Hx of CABG S/P percutaneous 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 History of PTCA S/P CABG (coronary artery bypass graft) Family History Family History Sibling Family history of cardiovascular disease Family history of coronary artery disease Family history of heart disease in male family member before age 55 Heart disease Hypertension Mother Family history of malignant neoplasm, Onset Age: 30 Patient's mother is Cancer Father Diabetes mellitus Family history of cardiovascular disease Other Leukemia Social History Social History Smoking packs per day: 1 Smoking cigarettes per day: 20.0 Years smoked: 65 Smoking pack-years: 65.00 Smoking status: Former smoker Tobacco type: cigarettes Smoking end date: 09/12/11 Alcohol intake: never Substance use: never Substance use type: does not use Lack of Transportation: No Lack of Food: Never True Current Housing: Decline to Answer Concerned About Future Housing: Decline to Answer Difficulty Paying Gas/Electric Bills: Decline to Answer Difficulty Paying for Meds: Decline to Answer Currently Unemployed: Decline to Answer Education: Decline to Answer Difficulty w/ Childcare or Family Care: Decline to Answer Living arrangements: with family Spiritual care concerns: No Exam Narrative: GENERAL: Well-appearing, well-nourished, and in no acute distress. HEAD: Normocephalic, atraumatic. EYES: EOMI. ENT: Nares clear, no rhinorrhea or epistaxis. Mucous membranes moist. Oropharynx without tonsillar hypertrophy exudate or other lesions. NECK: Supple. No adenopathy or masses. CHEST: No respiratory distress. Lung sounds are diminished with scattered wheezing. No rhonchi HEART: Regular rate and rhythm. No murmur heard. Normal peripheral pulses. EXTREMITIES: Normal range of motion. No edema. SKIN: Warm, dry, no rash. NEURO: No focal deficits. Alert and oriented x3. PSYCH: Normal mood and affect Course Course Emergency Course: patient updated on his workup and recommendation for admission. He does not wish to stay in the hospital at this time Vital Signs Vital signs: Vital Signs Pulse Rate 69 09/03/25 08:41 Respiratory Rate 16 09/03/25 08:41 Blood Pressure 143/64 H 09/03/25 08:41 Pulse Oximetry 100 09/03/25 08:41 Temperature 98.1 F 09/03/25 10:17 Pulse Rate 67 09/03/25 14:30 Respiratory Rate 20 09/03/25 14:30 Blood Pressure 122/63 09/03/25 14:30 Pulse Oximetry 97 09/03/25 14:30 [facility] Narrative Medical decision making narrative: Patient presents to the emergency department for an episode of nausea, left arm pain. Patient with history of COPD, reporting shortness of breath. Patient did not take any of his medications this morning. He was given his Bumetanide and given nebulizer treatment. His vitals are stable. Cbc without leukocytosis. Shows normocytic anemia with hemoglobin of 8. Metabolic panel with kidney function appears around baseline. EKG appears unchanged from previous. Baseline and 3 hour troponin are not elevated CTA chest PE obtained for further evaluation. No PE. Mild emphysema. Atelectasis. Hiatal hernia. Suggestion of hydronephrosis. Patient reports he has been urinating without difficulty while in the ER. He was updated on his workup and recommendation for admission for further evaluation. He does not wish to stay in the hospital at this time. 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 09/03/25 08:57 09/03/25 08:57 Labs: Lab Results 09/03/25 09/03/25 Range/Units 08:57 12:05 WBC 6.5 (4.5-10.0) K/mm3 RBC 3.32 L (4.6-6.20) M/mm3 Hgb 8.0 L (14.0-18.0) g/dL Hct 27.0 L (42.0-52.0) % MCV 81.3 (80-100) fl MCH 24.1 L (26-34) pg MCHC 29.6 L (32-36) g/dl RDW 14.7 H (11.5-14.5) % Plt Count 235 (150-375) k/mm3 MPV 8.9 (7.4-10.4) fl Immature Gran % (Auto) 0.6 H (0-0.5) % Neut % (Auto) 80.6 H (45.5-73.1) % Lymph % (Auto) 9.7 L (18.3-44.2) % [place] % (Auto) 7.4 (2.6-8.5) % Eos % (Auto) 1.4 (0-4.4) % Baso % (Auto) 0.3 (0.2-1.2) % Lymph # (Auto) 0.63 L (0.9-3.2) K/mm3 [place] # (Auto) 0.5 (0.1-0.6) K/mm3 Eos # (Auto) 0.1 (0-0.3) K/mm3 Baso # (Auto) 0.0 (0.0-0.1) K/mm3 Abs Immat Gran (auto) 0.04 H (0.00-0.031) K/mm3 Absolute Neuts (auto) 5.3 (1.3-6.7) K/mm3 Absolute Nucleated RBC 0.000 (0.0-0.012) K/mm3 Band Neutrophils % Not Reportable Nucleated RBC % 0.0 (0.0-0.2) % Platelet Estimate Adequate (Adequate) Hypochromasia 1+ Anisocytosis 1+ Schistocytes None seen PT 13.9 (11.1-14.7) Seconds INR 1.1 APTT 28.7 (22.3-36.8) Seconds Sodium 138 (137-145) mmol/L Potassium 4.1 (3.4-5.0) mmol/L Chloride 101 (98-107) mmol/L Carbon Dioxide 31 H (22-30) mmol/L Anion Gap 6 (4-12) mmol/L BUN 24 H (9-20) mg/dL Creatinine 1.33 H (0.7-1.3) mg/dL Estim Creat Clear Calc 51 ml/min Estimated GFR 51 L (59 - ) Glucose 89 (65-110) mg/dL Calcium 8.9 (8.4-10.2) mg/dL Total Bilirubin 0.5 (0.2-1.3) mg/dL AST 19 (17-59) U/L ALT 9 (6-50) U/L Alkaline Phosphatase 78 (38-126) U/L Troponin I 0.014 0.016 (0.000-0.034) ng/mL NT-Pro-B Natriuret Pep 397 H (19.9-100) pg/mL Total Protein 7.4 (6.3-8.2) g/dL Albumin 4.1 (3.5-5.1) g/dL Lipase 31 (23-300) U/L Influenza A (RT-PCR) Negative (Negative) Influenza B (RT-PCR) Negative (Negative) RSV (RT-PCR) Negative (Negative) SARS-CoV-2 RNA (RT-PCR) Negative (Negative) Imaging Data Radiologist's impression: ITS Impressions Chest X-Ray 09/03/25 09:25 IMPRESSION: 1. Tiny atelectasis and/or pneumonitis left lung. 2. No pulmonary edema. Chest CTA 09/03/25 13:44 IMPRESSION: 1. No pulmonary embolism. 2. Mild emphysema with diffuse mild bronchial wall thickening which could be due to acute or chronic bronchitis or reactive airway disease/asthma. 3. Mild atelectasis in bilateral lower lobes and lingula. No pneumonia, pulmonary edema or other airspace disease. 4. Moderate-sized sliding-type hiatal hernia with ringlike prosthesis at the herniated cardia of the stomach. 5. Suggestion of at least mild hydronephrosis at the upper poles of both kidneys which suggests possible bladder outlet obstruction. ECG Data EKG #1: ECG completion date: 09/03/25 normal rate, sinus rhythm, LBBB, prolonged QT and no acute changes (compared to previous EKG 2023) Critical Care Time Critical Care Time Critical Care Time: No Discharge Plan Discharge Clinical Impression: Nausea, Arm pain, left COPD (chronic obstructive pulmonary disease) Qualifiers: COPD type: unspecified COPD Qualified Code(s): J44.9 - Chronic obstructive pulmonary disease, unspecified Patient Disposition: Home Condition: Improved Instructions: COPD (Chronic Obstructive Pulmonary Disease) (ED), Acute Nausea and Vomiting (ED) Additional Instructions: Return to the emergency department if you experience fever, chest pain, shortness of breath, abdominal pain with nausea and vomiting, weakness, numbness, or any other symptoms that are concerning to you. 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 loader Patient Language: Telugu Prescriptions: No Action bumetanide 2 mg tablet 2 mg PO DAILY oxygen See Rx Instructions inhalation DAILY Rx Instructions: 3 liters inhaled daily; diphenhydramine-acetaminophen [Tylenol PM Extra Strength] 25-500 mg tablet 1 tablet PO QHS PRN (Reason: sleep) clopidogrel [Plavix] 75 mg tablet 75 mg PO HS aspirin 81 mg Tablet 81 mg PO QPM ezetimibe [Zetia] 10 mg Tablet 10 mg PO QHS lisinopril 5 mg tablet 5 mg PO DAILY finasteride 5 mg tablet 5 mg PO HS pravastatin 20 mg tablet 20 mg PO HS spironolactone 25 mg tablet 25 mg PO DAILY tamsulosin 0.4 mg capsule 0.4 mg PO QPM (DME) lancets [Ultra Fine Lancets] 30 gauge misc See Rx Instructions .Route Qty: 100 4RF Rx Instructions: Use one lancet to check blood sugar daily (DME) blood-glucose meter [Vormetricuch Ultra2 Meter] Misc See Rx Instructions .Route Qty: 1 0RF Rx Instructions: Use to test blood sugar daily budesonide 0.5 mg/2 mL suspension for nebulization 0.5 mg INHALATION BID Qty: 120 11RF Rx Instructions: Rinse and spit (DME) OneTouch Ultra Test Strip See Rx Instructions .Route Qty: 100 5RF Rx Instructions: Use one strip to test blood sugar up to TID glimepiride 1 mg tablet 1 mg PO DAILY Qty: 90 2RF Rx Instructions: administer with food sertraline 50 mg tablet 50 mg PO DAILY Qty: 90 2RF pantoprazole 40 mg tablet,delayed release (DR/EC) See Rx Instructions .ROUTE .COMPLEX Qty: 180 3RF Dose Instruction: Take 1 tablet by mouth twice daily Rx Instructions: Take 1 tablet by mouth twice daily albuterol sulfate 2.5 mg /3 mL (0.083 %) solution for nebulization See Rx Instructions .ROUTE .COMPLEX Qty: 180 5RF Dose Instruction: USE 1 VIAL IN NEBULIZER TWICE DAILY NEEDED FOR SHORTNESS OF BREATH FOR WHEEZING Rx Instructions: USE 1 VIAL IN NEBULIZER TWICE DAILY NEEDED FOR SHORTNESS OF BREATH FOR WHEEZING Follow-up/Referrals: Frank Valentino MD [Primary Care Provider, Internal Medicine]
[2025-09-03] MEDS: MAGNESIUM SULF 2 GM/WATER 50ML 2 GM/50 ML BAG IVPB (10:11)
--- OUTSIDE RECORDS SUMMARY | 2025-09-03 10:16 | XMS_ITS | Encounter Summary ---
Author Organization [facility] Address [address] [place] [address] Care Team Providers Care Gang Hemstitching Machine Operator Name Role Phone Charlie Vinson MD Primary Care Provider U Servando Torres DO Primary Care Provider [phone] Frank Valentino MD Primary Care Provider [phone] Encounter Details Date Type Department Care Team (Late st Contact Info) Description 12/18/2012 Abstract [facility] CONVERSION [address] [place], [place] [id number] , Generic MD Costa Social History Tobacco Use Types Packs/Day Years [...] on filedocumented in this encounter Care Teams Gang Hemstitching Machine Operator Relationship Specialty Start Date End Date Charlie Vinson MD PCP - General INTERNAL MEDICINE 08/28/18 03/18/22 Servando Dumas DO PCP - General FAMILY PRACTICE 03/19/22 12/20/24 Frank Valentino MD [address] [place] [address] PCP - General INTERNAL MEDICINE 12/21/24 documented as of this encounter
--- OUTSIDE RECORDS SUMMARY | 2025-09-03 10:16 | XMS_ITS | Clinical Summary ---
Author Organization [facility] [address] Address [address] [place] [address] Care Team Providers Care Polisher And Buffer Name Role Phone Frank Valentino MD Primary [...] (5MG) by oral route every day 0 01/03/20 12 Active tamsulosin (FLOMAX) 0.4 mg capsule,extended release 24hr take 1 by Oral route every day 0 01/03/20 12 Active albuterol (PROVENTIL,VENTOLIN) 0.63 mg/3 mL nebulizer solution use twice daily 0 13 Active aspirin 81 mg tablet take 1 tablet by oral route every day 0 0 07/15/20 16 Active ipratropium-albutero l (DUO-NEB) 0.5-2.5 mg/3 mL nebulizer solutionIndications: Chronic Obstructive Pulmonary Disease with Bronchospasms Take by nebulization every 6 (six) hours. Active pantoprazole DR (PROTONIX) 40 mg EC tablet Take 1 tablet (40 mg total) by mouth 2 (two) times a day Active oxygenIndications:Dy spnea Administer 4 L/min into each nostril Active diphenhydrAMINE-acet aminophen (TYLENOL PM) 25-500 mg tablet Take 1 tablet by mouth Active budesonide (PULMICORT) 0.5 mg/2 mL nebulizer solution 05/25/20 Active glimepiride (AMARYL) 1 mg tablet Take 1 tablet (1 mg total) by mouth 06/24/20 22 Active sertraline (ZOLOFT) 50 mg tablet Take 1 tablet (50 mg total) by mouth daily 08/17/20 24 Active pravastatin (PRAVACHOL) 20 mg tabletIndications:Co ronary arteriosclerosis in [place] artery,Multiple-type hyperlipidemia Take 1 tablet by mouth once daily 90 tablet 2 12/18/19 25 Active clopidogreL (PLAVIX) 75 mg tablet Take 1 tablet by mouth once daily 90 tablet 1 03/21/20 25 Active bumetanide (BUMEX) 2 mg tabletIndications:Ch ronic combined systolic and diastolic heart failure (HCC) Take 1 tablet by mouth once daily 90 tablet 2 04/29/20 25 Active ezetimibe (ZETIA) 10 mg tabletIndications:Mu ltiple-type hyperlipidemia Take 1 tablet by mouth once daily 90 tablet 1 06/10/20 25 Active spironolactone (ALDACTONE) 25 mg tabletIndications:Ch ronic combined systolic and diastolic heart failure (HCC) Take 1 tablet by mouth once daily 90 tablet 3 07/01/20 25 Active lisinopriL (PRINIVIL,ZESTRIL) 5 mg tabletIndications:Es sential hypertension,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 Ultimately underwent CABG w/ radial artery graft to PDA. Diffuse CAD Iin other vessels. Stable w/o angina. Hopefully if he needs to come off Plavix for GI procedures, he can do so safely w/o having SD. Abdominal aortic aneurysm (AAA) without rupture 12/10/2013 Overview (12/17/2016): AAA (abdominal aortic aneurysm) Post percutaneous 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 coronary angiopla sty 12/10/2013 Overview (12/17/2016): STATUS-POST PTCA Resolved Problems Problem Noted Date Diagnosed Date Resolved Date Essential hypertension 06/22/202106/22 Statin-induced myositis 07/11/2020 04/0 01/2021 Chronic coronary artery disease 05/04/2016 2019 Acute [...] heart failure 12/26/2011 Overview (12/17/2016): CHF NOS Surgical History Surgery Date Site/Laterality Comments HIATAL HERNIA REPAIR Hiatal Hernia Repair HEMORRHOID SURGERY Hemorrhoidectomy TRANSURETHRAL RESECTION OF PROSTATE 2008 TURP OTHER SURGICAL HISTORY Diabetic Neuropathy: Medical History Medical History Date Comments Chronic obstructive pulmonary disease COPD Hx Other Medical Hiatal Hernia - [...] on file Legal 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 Gender Identity Male 06/30/2020 11:30 AM CDT [...] Pneumococcal vaccine 65+ (2 of 2 - PPSV23, PCV20, or PCV21) 08/06/2019 06/11/2019, 09/12/2011 Influenza Vaccine (#1) 2025 0, 06/05/2018, 06/06/2017, Additional history exists Lipid Panel 12/21/2025 12/21/2024, 09/12, 12/15/2020, Additional history exists DTaP/Tdap/Td Vaccine (2 - Td or Tdap) 03/19/2032 03/19/2022 Abdominal Aortic Aneurysm (A AA) Screen Completed 06/07/2023, 12/25/2019, 04/16/2019, Additional history exists Procedures Procedure Name Priority Date/Time Associated Diagnosis Comments LIPID PANEL Routine 09/23/2021 Multiple-type hyperlipidemia Coronary arteriosclerosis in [place] artery Mixed diabetic hyperlipidemia associated with type [...] Most Recently Relevant to Health Maintenance Insurance COUNT INCLUDES THE [facility] MEDICARE GOLD AETNA MEDICARE GOLD Care Teams Polisher And Buffer Relationship Specialty Start Date End Date Frank Valentino MD [address] [place] [address] PCP - General Emergency Medicine 09/14/24
--- OUTSIDE RECORDS SUMMARY | 2025-09-03 10:16 | XMS_ITS | Encounter Summary ---
Author Organization [facility] Address [address] [place] [address] Care Team Providers Care Intermodal Owner Operator Truck Driver Name Role Phone Charlie Vinson MD Primary Care Provider U Servando Torres DO Primary Care Provider [phone] Frank Valentino MD Primary Care Provider [phone] Encounter Details Date Type Department Care Team (Late st Contact Info) Description 02/17/2019 Abstract [facility] CONVERSION [address] [place] [address] , Generic Conversion, Social History Tobacco Use [...] on filedocumented in this encounter Care Teams Intermodal Owner Operator Truck Driver Relationship Specialty Start Date End Date Charlie Vinsno MD PCP - General INTERNAL MEDICINE 08/28/18 03/18/22 Servando Dumas DO PCP - General FAMILY PRACTICE 03/19/22 12/20/24 Frank Valentino MD [address] [address] PCP - General INTERNAL MEDICINE 12/21/24 documented as of this encounter
--- OUTSIDE RECORDS SUMMARY | 2025-09-03 10:16 | XMS_ITS | Clinical Summary ---
Author Organization [facility] Address [address] [place] [address] Care Team Providers Care Textile Conservator Name Role Phone Frank Valentino MD Primary Care Provider [phone] Allergies Active Allergy Reactions Criticality Noted Date [...] 1 MG tabletIndicatio ns:Type 2 diabetes mellitus ([facility]) TAKE 1 TABLET BY MOUTH DAILY 90 tablet 9 Active ipratropium 0.02 % nebulizer solution USE 1 VIAL IN NEBULIZER EVERY 6 HOURS 11 9 Active Glucose Blood (ACCU-CHEK DOMENICO PLUS) test stripIndication s:Type 2 diabetes mellitus with complication, without long-term current use of insulin ([facility]) Use to check blood sugar once dailly [...] A (obstructive sleep apnea) Chronic combined systolic and diastolic heart fa ilure 07/15/2016 Overview (08/28/2018): Overview: Chronic combined systolic and diastolic CHF (congestive heart failure) Last Assessment & Plan: EF runs 25-40%, improved by most recent Echo to 47% Oct 2016 after CABG. CHF has improved. CHF (congestive heart failure) 07/14/2016 S/P CABG (coronary artery bypass graft) [...] (08/28/2018): Overview: STATUS-POST PTCA Diabetic peripheral neuropathy 07/09/2013 Anxiety 02/07/2013 Atherosclerosis of coronary artery 12/22/2012 Hyperlipidemia 12/22/2012 Hypertension 12/22/2012 Type 2 diabetes mellitus 12/22/2012 Alzheimer's disease 12/21/2012 Chronic obstructive pulmonary disease 12/21/2012 Resolved Problems Problem Noted Date Diagnosed Date Resolved Date Acute non-ST elevation myoca rdial infarction (NSTEMI) 04/26/2016 03/12/2019 Overview (08/28/2018): Overview: Non-ST elevation (NSTEMI) myocardial infarction Internal hemorrhoids 10/01/2014 018 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 Overview (08/28/2018): Overview: Old OR (myocardial infarction) Immunizations Immunization Administration Dates Next [...] 1-dose 75+ series) 2017 COVID-19 Vaccine ( - 2024- season) 2025 Influenza Adult (#1) 2025 06/05/2018, 06/05/2018, 06/06/2017, Additional history exists Hemoglobin A1C 06/22/2025 12/21/2024, 03/13, 12/15/2018, Additional history exists Kidney Health Evaluation 12/21/2025 12/21/2024 Lipid Panel 12/21/2025 12/21/2024 DTaP, Tdap and Td Vaccines (2 - Td or Tdap) 03/19/2032 03/19/2022 Hepatitis A Vaccines Aged Out No long er eligible based on patient's age to complete this topic Meningococcal B Vaccine Aged Out No l [...] AM CDT Hyperlipidemia Diabetes mellitus without complication ([facility]) Vitamin D deficiency HEMOGLOBIN, GLYCOSYLATED Routine 12/21/2024 8:40 AM CDT Hyperlipidemia Diabetes mellitus without complication ([facility]) Vitamin D deficiency from Last 3 Months or Most Recently Relevant to Health Maintenance Results * (ABNORMAL) HEMOGLOBIN, GLYCOSYLATED (12/21/2024 8:40 AM CDT) HGB A1C 5.9(H) <5.7 % 12/21/2024 9:18 AM CDT [facility] Comment: INCREASED RISK OF DIABETES <5.7% NON-DIABETES 5.7-6.4% INCREASED RISK FOR FUTURE DIABETES > OR = 6.5 CONSISTENT WITH DIABETES STANDARDS OF MEDICAL CARE IN DIABETES-2010 DIABETES CARE, 33(SUPP 1): S1-S61,2010 ESTIMATED AVG GLUCOSE 123 mg/dL 12/21/2024 9:18 AM CDT [facility] 12/21/2024 8:40 AM CDT us Frank Valentino MD LABORATORY Final Result [facility] [address] [place] [address], [place] [phone] * LIPID PANEL (12/21/2024 8:40 AM CDT) CHOLESTEROL 130 <200.0 MG/DL 12/21/2024 9:18 AM CDT [facility] TRIGLYCERIDES 75 <150 MG/DL 12/21/2024 9:18 AM CDT [facility] HDL 65 >40.0 MG/DL 12/21/2024 9:18 AM CDT [facility] LDL (CALCULATED) 50 <100 MG/DL 12/22/19 9:18 AM CDT [facility] NON HDL CHOLESTEROL 65 <130 MG/DL 12/21 9:18 AM CDT [facility] CHOL/HDL RATIO 2.0 0.0 - 4.5 12/21/2024 9:18 AM T [facility] VLDL CALCULATION 15 5 - 55 MG/DL 12/21/2024 9:18 AM T [facility] LIPID INTERPRETATION 12/21/2024 9:18 AM T [facility] Comment: [facility] REPORT RECOMMENDATIONS: ADULT CHILD LOW RISK: CHOLESTEROL <200 <170 TRIGLYCERIDE <150 --- HDL >=60 --- LDL <100 <110 BORDERLINE: CHOLESTEROL 200-239 170-199 TRIGLYCERIDE 150-199 --- HDL 40-59 --- LDL 100-159 110-129 HIGH RISK: CHOLESTEROL >=240 >=200 TRIGLYCERIDE >=200 --- HDL <40 --- LDL >=160 >=130 12/21/2024 8:40 AM CDT Frank Valentino MD LABORATORY Final Result [facility] [address] [place] [address], [place] [phone] from Last 3 Months or Most Recently Relevant to Health Maintenance Insurance A[employer] MEDICARE Advance Directives Documents on File Type Date Recorded Patient Research Instrumentation Technician Expl anation Advance Directives and Living Will 12/07/2018 12:00 AM LIVING WILL Advance Directives and Living Will 12/07/2018 12:00 AM POWER OF FORESTRY AND WILDLIFE MANAGER FO R HEALTH CARE Advance Directives and Living Will 11/02/2018 12:00 AM LIVING WILL Advance Directives and Living Will 11/02/2018 12:00 AM POWER OF FORESTRY AND WILDLIFE MANAGER FO R HEALTH CARE Advance Directives and Living Will 03/06/2018 12:00 AM LIVING WILL Advance Directives and Living Will 03/06/2018 12:00 AM POWER OF FORESTRY AND WILDLIFE MANAGER FO R HEALTH CARE Advance Directives and Living Will 03/06/2018 12:00 AM LIVING WILL Advance Directives and Living Will 03/06/2018 12:00 AM POWER OF FORESTRY AND WILDLIFE MANAGER FO R HEALTH CARE Advance Directives and Living Will 11/29/2017 12:00 AM LIVING WILL Advance Directives and Living Will 11/29/2017 12:00 AM POWER OF FORESTRY AND WILDLIFE MANAGER FO R HEALTH CARE Advance Directives and Living Will 11/29/2017 12:00 AM LIVING WILL Advance Directives and Living Will 11/29/2017 12:00 AM POWER OF FORESTRY AND WILDLIFE MANAGER FO R HEALTH CARE Advance Directives and Living Will 11/02/2017 12:00 AM LIVING WILL Advance Directives and Living Will 11/02/2017 12:00 AM POWER OF FORESTRY AND WILDLIFE MANAGER FO R HEALTH CARE Advance Directives and Living Will 11/02/2017 12:00 AM LIVING WILL Advance Directives and Living Will 11/02/2017 12:00 AM POWER OF FORESTRY AND WILDLIFE MANAGER FO R HEALTH CARE Advance Directives and Living Will 10/14/2017 12:00 AM LIVING WILL Advance Directives and Living Will 10/14/2017 12:00 AM POWER OF FORESTRY AND WILDLIFE MANAGER FO R HEALTH CARE Advance Directives and Living Will 10/14/2017 12:00 AM LIVING WILL Advance Directives and Living Will 10/14/2017 12:00 AM POWER OF FORESTRY AND WILDLIFE MANAGER FO R HEALTH CARE Advance Directives and Living Will 05/24/2017 12:00 AM LIVING WILL Advance Directives and Living Will 05/24/2017 12:00 AM POWER OF FORESTRY AND WILDLIFE MANAGER FO R HEALTH CARE Advance Directives and Living Will 05/24/2017 12:00 AM LIVING WILL Advance Directives and Living Will 05/24/2017 12:00 AM POWER OF FORESTRY AND WILDLIFE MANAGER FO R HEALTH CARE Advance Directives and Living Will 03/29/2017 12:00 AM LIVING WILL Advance Directives and Living Will 03/29/2017 12:00 AM POWER OF FORESTRY AND WILDLIFE MANAGER FO R HEALTH CARE Advance Directives and Living Will 03/29/2017 12:00 AM LIVING WILL Advance Directives and Living Will 03/29/2017 12:00 AM POWER OF FORESTRY AND WILDLIFE MANAGER FO R HEALTH CARE Advance Directives and Living Will 03/11/2017 12:00 AM LIVING WILL Advance Directives and Living Will 03/11/2017 12:00 AM POWER OF FORESTRY AND WILDLIFE MANAGER FO R HEALTH CARE Advance Directives and Living Will 03/11/2017 12:00 AM LIVING WILL Advance Directives and Living Will 03/11/2017 12:00 AM POWER OF FORESTRY AND WILDLIFE MANAGER FO R HEALTH CARE Advance Directives and Living Will 09/09/2016 12:00 AM LIVING WILL Advance Directives and Living Will 09/09/2016 12:00 AM POWER OF FORESTRY AND WILDLIFE MANAGER FOR HEALTH CARE Advance Directives and Living Will 09/09/2016 12:00 AM LIVING WILL Advance Directives and Living Will 09/09/2016 12:00 AM POWER OF FORESTRY AND WILDLIFE MANAGER FOR HEALTH CARE Advance Directives and Living Will 07/06/2016 12:00 AM LIVING WILL Advance Directives and Living Will 07/06/2016 12:00 AM POWER OF FORESTRY AND WILDLIFE MANAGER FOR HEALTH CARE Advance Directives and Living Will 07/06/2016 12:00 AM LIVING WILL Advance Directives and Living Will 07/06/2016 12:00 AM POWER OF FORESTRY AND WILDLIFE MANAGER FOR HEALTH CARE Advance Directives and Living Will 07/05/2016 12:00 AM LIVING WILL Advance Directives and Living Will 07/05/2016 12:00 AM POWER OF FORESTRY AND WILDLIFE MANAGER FOR HEALTH CARE Advance Directives and Living Will 07/05/2016 12:00 AM LIVING WILL Advance Directives and Living Will 07/05/2016 12:00 AM POWER OF FORESTRY AND WILDLIFE MANAGER FOR HEALTH CARE Advance Directives and Living Will 07/02/2016 12:00 AM LIVING WILL Advance Directives and Living Will 07/02/2016 12:00 AM POWER OF FORESTRY AND WILDLIFE MANAGER FOR HEALTH CARE Advance Directives and Living Will 07/02/2016 12:00 AM LIVING WILL Advance Directives and Living Will 07/02/2016 12:00 AM POWER OF FORESTRY AND WILDLIFE MANAGER FOR HEALTH CARE Advance Directives and Living Will 07/01/2016 12:00 AM LIVING WILL Advance Directives and Living Will 07/01/2016 12:00 AM POWER OF FORESTRY AND WILDLIFE MANAGER FOR HEALTH CARE Advance Directives and Living Will 07/01/2016 12:00 AM LIVING WILL Advance Directives and Living Will 07/01/2016 12:00 AM POWER OF FORESTRY AND WILDLIFE MANAGER FOR HEALTH CARE Advance Directives and Living Will 06/25/2016 12:00 AM LIVING WILL Advance Directives and Living Will 06/25/2016 12:00 AM POWER OF FORESTRY AND WILDLIFE MANAGER FOR HEALTH CARE Advance Directives and Living Will 06/25/2016 12:00 AM LIVING WILL Advance Directives and Living Will 06/25/2016 12:00 AM POWER OF FORESTRY AND WILDLIFE MANAGER FOR HEALTH CARE Advance Directives and Living Will 06/25/2016 12:00 AM LIVING WILL Advance Directives and Living Will 06/25/2016 12:00 AM POWER OF FORESTRY AND WILDLIFE MANAGER FOR HEALTH CARE Advance Directives and Living Will 06/25/2016 12:00 AM LIVING WILL Advance Directives and Living Will 06/25/2016 12:00 AM POWER OF FORESTRY AND WILDLIFE MANAGER FOR HEALTH CARE Advance Directives and Living Will 06/25/2016 12:00 AM LIVING WILL Advance Directives and Living Will 06/25/2016 12:00 AM POWER OF FORESTRY AND WILDLIFE MANAGER FOR HEALTH CARE Advance Directives and Living Will 06/25/2016 12:00 AM LIVING WILL Advance Directives and Living Will 06/25/2016 12:00 AM POWER OF FORESTRY AND WILDLIFE MANAGER FOR HEALTH CARE Advance Directives and Living Will 05/30/2016 12:00 AM LIVING WILL Advance Directives and Living Will 05/30/2016 12:00 AM POWER OF FORESTRY AND WILDLIFE MANAGER FO R HEALTH CARE Advance Directives and Living Will 05/30/2016 12:00 AM LIVING WILL Advance Directives and Living Will 05/30/2016 12:00 AM POWER OF FORESTRY AND WILDLIFE MANAGER FO R HEALTH CARE Advance Directives and Living Will 05/25/2016 12:00 AM LIVING WILL Advance Directives and Living Will 05/25/2016 12:00 AM POWER OF FORESTRY AND WILDLIFE MANAGER FO R HEALTH CARE Advance Directives and Living Will 05/25/2016 12:00 AM LIVING WILL Advance Directives and Living Will 05/25/2016 12:00 AM POWER OF FORESTRY AND WILDLIFE MANAGER FO R HEALTH CARE Advance Directives and Living Will 02/16/2016 12:00 AM LIVING WILL Advance Directives and Living Will 02/16/2016 12:00 AM POWER OF FORESTRY AND WILDLIFE MANAGER FO R HEALTH CARE Advance Directives and Living Will 02/16/2016 12:00 AM LIVING WILL Advance Directives and Living Will 02/16/2016 12:00 AM POWER OF FORESTRY AND WILDLIFE MANAGER FO R HEALTH CARE Advance Directives and Living Will 01/01/2016 12:00 AM LIVING WILL Advance Directives and Living Will 01/01/2016 12:00 AM POWER OF FORESTRY AND WILDLIFE MANAGER FO R HEALTH CARE Advance Directives and Living Will 01/01/2016 12:00 AM LIVING WILL Advance Directives and Living Will 01/01/2016 12:00 AM POWER OF FORESTRY AND WILDLIFE MANAGER FO R HEALTH CARE Advance Directives and Living Will 07/30/2015 12:00 AM LIVING WILL Advance Directives and Living Will 07/30/2015 12:00 AM POWER OF FORESTRY AND WILDLIFE MANAGER FOR HEALTH CARE Advance Directives and Living Will 07/30/2015 12:00 AM LIVING WILL Advance Directives and Living Will 07/30/2015 12:00 AM POWER OF FORESTRY AND WILDLIFE MANAGER FOR HEALTH CARE Advance Directives and Living Will 06/19/2014 12:00 AM LIVING WILL Advance Directives and Living Will 06/19/2014 12:00 AM POWER OF FORESTRY AND WILDLIFE MANAGER FO R HEALTH CARE Advance Directives and Living Will 06/19/2014 12:00 AM LIVING WILL Advance Directives and Living Will 06/19/2014 12:00 AM POWER OF FORESTRY AND WILDLIFE MANAGER FO R HEALTH CARE Advance Directives and Living Will 06/19/2014 12:00 AM LIVING WILL Advance Directives and Living Will 06/19/2014 12:00 AM POWER OF FORESTRY AND WILDLIFE MANAGER FO R HEALTH CARE Advance Directives and Living Will 06/19/2014 12:00 AM LIVING WILL Advance Directives and Living Will 06/19/2014 12:00 AM POWER OF FORESTRY AND WILDLIFE MANAGER FO R HEALTH CARE Advance Directives and Living Will 06/13/2014 12:00 AM LIVING WILL Advance Directives and Living Will 06/13/2014 12:00 AM POWER OF FORESTRY AND WILDLIFE MANAGER FO R HEALTH CARE Advance Directives and Living Will 06/13/2014 12:00 AM LIVING WILL Advance Directives and Living Will 06/13/2014 12:00 AM POWER OF FORESTRY AND WILDLIFE MANAGER FO R HEALTH CARE Advance Directives and Living Will 05/24/2014 12:00 AM LIVING WILL Advance Directives and Living Will 05/24/2014 12:00 AM POWER OF FORESTRY AND WILDLIFE MANAGER FO R HEALTH CARE Advance Directives and Living Will 05/24/2014 12:00 AM LIVING WILL Advance Directives and Living Will 05/24/2014 12:00 AM POWER OF FORESTRY AND WILDLIFE MANAGER FO R HEALTH CARE Advance Directives and Living Will 04/19/2014 12:00 AM LIVING WILL Advance Directives and Living Will 04/19/2014 12:00 AM POWER OF FORESTRY AND WILDLIFE MANAGER FO R HEALTH CARE Advance Directives and Living Will 04/19/2014 12:00 AM LIVING WILL Advance Directives and Living Will 04/19/2014 12:00 AM POWER OF FORESTRY AND WILDLIFE MANAGER FO R HEALTH CARE Advance Directives and Living Will 04/19/2014 12:00 AM LIVING WILL Advance Directives and Living Will 04/19/2014 12:00 AM POWER OF FORESTRY AND WILDLIFE MANAGER FO R HEALTH CARE Advance Directives and Living Will 04/19/2014 12:00 AM LIVING WILL Advance Directives and Living Will 04/19/2014 12:00 AM POWER OF FORESTRY AND WILDLIFE MANAGER FO R HEALTH CARE Advance Directives and Living Will 04/12/2014 12:00 AM LIVING WILL Advance Directives and Living Will 04/12/2014 12:00 AM POWER OF FORESTRY AND WILDLIFE MANAGER FO R HEALTH CARE Advance Directives and Living Will 04/12/2014 12:00 AM LIVING WILL Advance Directives and Living Will 04/12/2014 12:00 AM POWER OF FORESTRY AND WILDLIFE MANAGER FO R HEALTH CARE Advance Directives and Living Will 03/26/2014 12:00 AM LIVING WILL Advance Directives and Living Will 03/26/2014 12:00 AM POWER OF FORESTRY AND WILDLIFE MANAGER FO R HEALTH CARE Advance Directives and Living Will 03/26/2014 12:00 AM LIVING WILL Advance Directives and Living Will 03/26/2014 12:00 AM POWER OF FORESTRY AND WILDLIFE MANAGER FO R HEALTH CARE Advance Directives and Living Will 03/19/2014 12:00 AM LIVING WILL Advance Directives and Living Will 03/19/2014 12:00 AM POWER OF FORESTRY AND WILDLIFE MANAGER FO R HEALTH CARE Advance Directives and Living Will 03/19/2014 12:00 AM LIVING WILL Advance Directives and Living Will 03/19/2014 12:00 AM POWER OF FORESTRY AND WILDLIFE MANAGER FO R HEALTH CARE Advance Directives and Living Will 03/02/2014 12:00 AM LIVING WILL Advance Directives and Living Will 03/02/2014 12:00 AM POWER OF FORESTRY AND WILDLIFE MANAGER FO R HEALTH CARE Advance Directives and Living Will 03/02/2014 12:00 AM LIVING WILL Advance Directives and Living Will 03/02/2014 12:00 AM POWER OF FORESTRY AND WILDLIFE MANAGER FO R HEALTH CARE DNR (Do Not Resuscitate) Documentation 03/02/2014 12:00 AM DO NOT RESUSCITATE Advance Directives and Living Will 02/27/2014 12:00 AM POWER OF FORESTRY AND WILDLIFE MANAGER FO R HEALTH CARE Advance Directives and Living Will 02/27/2014 12:00 AM POWER OF FORESTRY AND WILDLIFE MANAGER FO R HEALTH CARE Advance Directives and Living Will 02/11/2014 12:00 AM POWER OF FORESTRY AND WILDLIFE MANAGER FO R HEALTH CARE Advance Directives and Living Will 02/11/2014 12:00 AM POWER OF FORESTRY AND WILDLIFE MANAGER FO R HEALTH CARE Advance Directives and Living Will 02/01/2014 12:00 AM POWER OF FORESTRY AND WILDLIFE MANAGER FO R HEALTH CARE Advance Directives and Living Will 02/01/2014 12:00 AM POWER OF FORESTRY AND WILDLIFE MANAGER FO R HEALTH CARE Advance Directives and Living Will 01/10/2014 12:00 AM POWER OF FORESTRY AND WILDLIFE MANAGER FO R HEALTH CARE Advance Directives and Living Will 01/10/2014 12:00 AM POWER OF FORESTRY AND WILDLIFE MANAGER FO R HEALTH CARE Care Teams Textile Conservator Relationship Specialty Start Date End Date Frank Valentino MD [address] [place] [address] PCP - General INTERNAL MEDICINE 12/21/24
--- OUTSIDE RECORDS SUMMARY | 2025-09-03 10:16 | XMS_ITS | Encounter Summary ---
Author Organization [facility] Address [address] [place] [address] Care Team Providers Care Medical Office Administrator Name Role Phone Charlie Vinson MD Primary Care Provider U Servando Torres DO Primary Care Provider [phone] Frank Valentino MD Primary Care Provider [phone] Encounter Details Date Type Department Care Team (Late st Contact Info) Description 01/01/2016 Abstract [facility] CONVERSION [address] [place], [place] [id number] , Binta Skelton MD Social History Tobacco [...] on filedocumented in this encounter Care Teams Medical Office Administrator Relationship Specialty Start Date End Date Charlie Vinson MD PCP - General INTERNAL MEDICINE 08/28/18 03/18/22 Servando Dumas DO PCP - General FAMILY PRACTICE 03/19/22 12/20/24 Frank Valentino MD [address] [place] [address] PCP - General INTERNAL MEDICINE 12/21/24 documented as of this encounter
--- OUTSIDE RECORDS SUMMARY | 2025-09-03 10:16 | XMS_ITS | Encounter Summary ---
Author Organization [facility] Address [address] [facility] [address] [place] [id number] Care Team Providers Care Computer Console Operator Name Role Phone Charlie Vinson MD Primary Care Provider Charlie Vinson MD Primary Care Provider Juan Godoy MD Primary Care Provider + [phone] Servando Dumas DO Primary Care Provider [phone] Frank Valentino MD Primary Care Provide r Encounter Details Date Type Department Care Team (Late st Contact Info) Description 10/20/2016 Orders Only [facility] Provider, MD [place] [address] [place] [id number] Social History Tobacco Use Types Packs/Day Years Used Date Smoking Tobacco: Former Alcohol Use Standard Drinks/Week Comments No 0 (1 standard drink = 0.6 oz pur e alcohol) Sex and Gender Information Value Date Recorded Sex Assigned at Not on file Legal Sex Male 8:16 AM [employer] Gender Identity Male 06/30/2020 11:30 AM CDT [...] on filedocumented in this encounter Care Teams Computer Console Operator Relationship Specialty [place] [address] [place] [address] PCP - General 12/10/16 06/30/20 [place] [address] [place] [address] PCP - General 01/03/12 12/09/16 Juan Godoy MD [address] [place] [address] PCP - General Internal Medicine 07/01/20 01/01/22 Servando Dumas DO [address] [place] [address] PCP - General Family Medicine 01/02/22 09/13/24 Frank Valentino MD [address] [place] [address] PCP - General Emergency Medicine 09/14/24 documented as of this encounter
[2025-09-03] MEDS: BUMETANIDE 1 MG TABLET 2 MG PO (10:17)
[2025-09-03] MEDS: IPRATROPIUM 0.5 MG/ALBUTEROL SULFATE 2.5 MG (BASE) AMPUL.NEB 3 ML INHALATION (10:23)
[2025-09-03] MEDS: PANTOPRAZOLE SODIUM IV 40 MG VIAL IV PUSH (12:20)
[2025-09-03 12:41] LABS: Troponin I 0.016 ng/mL (0.000-0.034)
--- NOTE | 2025-09-03 13:18 | PC.NURSE ---
pt to CT at this time
== END 2025-09-03 14:35 | disposition home or self-care (01) ==
PROVIDERS: Emergency Medicine; Emergency Provider Physician Assistant; PCP Emergency Medicine
DX: R11.0 Nausea (principal); J44.9 Chronic obstructive pulmonary disease, unspecified; M79.602 Pain in left arm; Z20.822 Contact with and (suspected) exposure to COVID-19; I50.9 Heart failure, unspecified; I11.0 Hypertensive heart disease with heart failure; I25.10 Atherosclerotic heart disease of native coronary artery without angina pectoris; I25.5 Ischemic cardiomyopathy; I25.2 Old myocardial infarction; J96.11 Chronic respiratory failure with hypoxia; Z99.81 Dependence on supplemental oxygen; E78.5 Hyperlipidemia, unspecified; N40.0 Benign prostatic hyperplasia without lower urinary tract symptoms; Z95.1 Presence of aortocoronary bypass graft; Z95.5 Presence of coronary angioplasty implant and graft; Z87.891 Personal history of nicotine dependence; R93.41 Abnormal radiologic findings on diagnostic imaging of renal pelvis, ureter, or bladder; K44.9 Diaphragmatic hernia without obstruction or gangrene; I44.0 Atrioventricular block, first degree; I44.7 Left bundle-branch block, unspecified
CPT/HCPCS: 36415; 71045; 71275; 80053; 83690; 83880; 84484; 85025; 85610; 85730; 87637; 93005; 94640; 96365; 96375; 99284; A9270; J2470; J2919; J3475; Q9967